=== PATIENT | male | born 1930 | race Caucasian/White ===

== ENCOUNTER 2016-08-09 15:10 | Emergency (ER) | payer MEDICARE, OTHER ==
--- NOTE | 2016-08-09 16:25 | ER Document Report ---
ED Medical Screen (RME) - General Stated Complaint: PAINFUL URINATION Time seen by provider: 16:20 Mode of Arrival: Ambulatory Information source: Patient Notes: 86-year-old male complaining of inability to have a bowel movement today. Doesn 't one sit down on the toilet to strain because then it starts a burning pain in his anus area. He had a bowel movement yesterday. He is, in the emergency room 5 or 6 times in the past and they put a Bledsoe catheter and but he does not feel like his bladder is distended and is not having any bladder pain. I have greeted and performed a rapid initial assessment of this patient. A comprehensive ED assessment, evaluation of the patient, analysis of test results , and completion of the medical decision making process will be conducted by additional ED providers. TRAVEL OUTSIDE OF THE [place] IN LAST 30 DAYS: No - Related Data Allergies/Adverse Reactions: digoxin [Digoxin] Allergy (Verified 05/15/16 19:17) felt bad procainamide HCl [From Procan SR] Allergy (Verified 05/15/16 19:17) ITCH, RASH ketamine Adverse Reaction (Verified 05/15/16 19:17) Past Medical History - Past Medical History Cardiac Medical History: Reports: Hx Congestive Heart Failure, Hx Coronary Artery Disease - 4 stents, Hx Heart Attack - 1980, Hx Hypercholesterolemia, Hx Hypertension Pulmonary Medical History: Reports: Hx Pneumonia - hx Denies: Hx Asthma, Hx Bronchitis, Hx COPD, Hx Tuberculosis Neurological Medical History: Denies: Hx Cerebrovascular Accident, Hx Seizures Endocrine Medical History: Reports: Hx Diabetes Mellitus Type 2 Renal/ Medical History: Reports: Hx Benign Prostatic Hyperplasia GI Medical History: Reports: Hx Gastroesophageal Reflux Disease Musculoskeltal Medical History: Denies Hx Arthritis Past Surgical History: Reports: Hx Cardiac Catheterization - stents x4/ pmaker, defib, Hx Coronary Stent, Hx Open Heart Surgery - STENTS X 4, Hx Pacemaker - Immunizations Hx Diphtheria, Pertussis, Tetanus Vaccination: Yes Physical Exam - Vital signs Vitals: Temp Pulse Resp BP Pulse Ox 97.4 F 59 L 18 144/47 H 100 08/09/16 15:14 08/09/16 15:14 08/09/16 15:14 08/09/16 15:14 08/09/16 15:14 Course - Vital Signs Vital signs: Temp Pulse Resp BP Pulse Ox 97.4 F 59 L 18 144/47 H 100 08/09/16 15:14 08/09/16 15:14 08/09/16 15:14 08/09/16 15:14 08/09/16 15:14
[2016-08-09 16:54] LABS: ABSOLUTE BASOPHILS # (AUTO) 0.1 10^3/uL (0.0-0.2); ABSOLUTE EOSINOPHILS # (AUTO) 0.1 10^3/uL (0.0-0.6); ABSOLUTE MONOCYTES (AUTO) 0.6 10^3/uL (0.1-1.4); ABSOLUTE NEUT (AUTO) 6.9 10^3/uL (1.7-8.2); BASOPHILS % (AUTO) 0.7 % (0-2); EOSINOPHILS % (AUTO) 1.2 % (0-6); HEMATOCRIT 30.5 % (37.9-51.0); HEMOGLOBIN 9.8 g/dL (13.5-17.0); HGB HCT DIFFERENCE -1.1; LYMPHOCYTES % (AUTO) 11.1 % (13-45); MEAN CORPUSCULAR HEMOGLOBIN 28.3 pg (27.0-33.4); MEAN CORPUSCULAR HGB CONC 32.1 g/dL (32.0-36.0); MEAN CORPUSCULAR VOLUME 88 fl (80-97); MONOCYTES % (AUTO) 7.4 % (3-13); RED BLOOD COUNT 3.46 10^6/uL (4.35-5.55); RED CELL DISTRIBUTION WIDTH 15.6 % (11.5-14.0); SEGMENTED NEUTROPHILS % (AUTO) 79.6 % (42-78); WHITE BLOOD COUNT 8.7 10^3/uL (4.0-10.5)
[2016-08-09 17:06] LABS: ALANINE AMINOTRANSFERASE 24 U/L (21-72); ALBUMIN 4.1 g/dL (3.5-5.0); ALKALINE PHOSPHATASE 107 U/L (38-126); ANION GAP 14 (5-19); ASPARTATE AMINO TRANSFERASE 25 U/L (17-59); BILIRUBIN,TOTAL 0.4 mg/dL (0.2-1.3); BLOOD UREA NITROGEN 36 mg/dL (7-20); CALCIUM 9.2 mg/dL (8.4-10.2); CARBON DIOXIDE 24 mmol/L (22-30); CHLORIDE 104 mmol/L (98-107); CREATININE RESULT 1.72 mg/dL (0.52-1.25); GLUCOSE 130 mg/dL (75-110); POTASSIUM 4.5 mmol/L (3.6-5.0); SODIUM 141.5 mmol/L (137-145); TOTAL PROTEIN 7.2 g/dL (6.3-8.2)
[2016-08-09] MEDS ORDERED: LIDOCAINE 4% TOPICAL SOLN 50 ML TOP ONE (17:56)
--- NOTE | 2016-08-09 18:46 | ER Document Report ---
ED General - General Chief Complaint: Constipation Stated Complaint: PAINFUL URINATION Mode of Arrival: Ambulatory Information source: Patient Notes: 86-year-old male presents with complaints of rectal pain with hard bowel movements. Patient denies any fevers or chills. Patient initially did complain of difficulty urinating however he notes that his pain is all constipation related TRAVEL OUTSIDE OF THE [place] IN LAST 30 DAYS: No - HPI Onset: Yesterday Onset/Duration: Sudden Quality of pain: Sharp Severity: Mild Pain Level: 1 Associated symptoms: Other Exacerbated by: Denies Relieved by: Denies Similar symptoms previously: No Recently seen / treated by doctor: No - Related Data Allergies/Adverse Reactions: digoxin [Digoxin] Allergy (Verified 05/15/16 19:17) felt bad procainamide HCl [From Procan SR] Allergy (Verified 05/15/16 19:17) ITCH, RASH ketamine Adverse Reaction (Verified 05/15/16 19:17) Past Medical History - General Information source: Patient - Social History Smoking Status: Never Smoker Cigarette use (# per day): No Chew tobacco use (# tins/day): No Smoking Education Provided: No Family History: Reviewed & Not Pertinent Patient has suicidal ideation: No Patient has homicidal ideation: No - Past Medical History Cardiac Medical History: Reports: Hx Congestive Heart Failure, Hx Coronary Artery Disease - 4 stents, Hx Heart Attack - 1980, Hx Hypercholesterolemia, Hx Hypertension Pulmonary Medical History: Reports: Hx Pneumonia - hx Denies: Hx Asthma, Hx Bronchitis, Hx COPD, Hx Tuberculosis Neurological Medical History: Denies: Hx Cerebrovascular Accident, Hx Seizures Endocrine Medical History: Reports: Hx Diabetes Mellitus Type 2 Renal/ Medical History: Reports: Hx Benign Prostatic Hyperplasia. Denies: Hx Peritoneal Dialysis GI Medical History: Reports: Hx Gastroesophageal Reflux Disease Musculoskeltal Medical History: Denies Hx Arthritis Past Surgical History: Reports: Hx Cardiac Catheterization - stents x4/ pmaker, defib, Hx Coronary Stent, Hx Open Heart Surgery - STENTS X 4, Hx Pacemaker - Immunizations Hx Diphtheria, Pertussis, Tetanus Vaccination: Yes Hx Pneumococcal Vaccination: 05/05/15 Review of Systems - Review of Systems Notes: REVIEW OF SYSTEMS: CONSTITUTIONAL : Denies fever, chills, or sweats. Denies recent illness. EENT: Denies eye, ear, throat, or mouth pain or symptoms. Denies nasal or sinus congestion or discharge. Denies throat, tongue, or mouth swelling or difficulty swallowing. CARDIOVASCULAR: Denies chest pain. Denies palpitations or racing or irregular heart beat. Denies ankle edema. RESPIRATORY: Denies cough, cold, or chest congestion. Denies shortness of breath, difficulty breathing, or wheezing. GASTROINTESTINAL: Admits to rectal pain constipation GENITOURINARY: Denies difficulty urinating, painful urination, burning, frequency, blood in urine, or discharge. MUSCULOSKELETAL: Denies back or neck pain or stiffness. Denies joint pain or swelling. SKIN: Denies rash, lesions or sores. HEMATOLOGIC : Denies easy bruising or bleeding. LYMPHATIC: Denies swollen, enlarged glands. NEUROLOGICAL: Denies confusion or altered mental status. Denies passing out or loss of consciousness. Denies dizziness or lightheadedness. Denies headache. Denies weakness or paralysis or loss of use of either side. Denies problems with gait or speech. Denies sensory loss, numbness, or tingling. Denies seizures. PSYCHIATRIC: Denies anxiety or stress. Denies depression, suicidal ideation, or homicidal ideation. ALL OTHER SYSTEMS REVIEWED AND NEGATIVE. Dictation was performed using [employer] voice recognition software PHYSICAL EXAMINATION: GENERAL: Well-appearing, well-nourished and in no acute distress. HEAD: Atraumatic, normocephalic. EYES: Pupils equal round and reactive to light, extraocular movements intact, sclera anicteric, conjunctiva are normal. ENT: Nares patent, oropharynx clear without exudates. Moist mucous membranes. NECK: Normal range of motion, supple without lymphadenopathy LUNGS: Breath sounds clear to auscultation bilaterally and equal. No wheezes rales or rhonchi. HEART: Regular rate and rhythm without murmurs ABDOMEN: Soft, nontender, nondistended abdomen. No guarding, no rebound. No masses appreciated. Musculoskeletal: Normal range of motion, no pitting or edema. No cyanosis. NEUROLOGICAL: Cranial nerves grossly intact. Normal speech, normal gait. Normal sensory, motor exams PSYCH: Normal mood, normal affect. SKIN: Anal fissure noted on rectal examination Physical Exam - Vital signs Vitals: Temp Pulse Resp BP Pulse Ox 97.4 F 59 L 18 144/47 H 100 08/09/16 15:14 08/09/16 15:14 08/09/16 15:14 08/09/16 15:14 08/09/16 15:14 Course - Re-evaluation Re-evalutation: 08/09/16 23:10 Immediately after obtaining lidocaine, patient had 2 bowel movements with no pain at all, patient is extremely happy with this notes it was hard stool. He will take Miralax at home Patient wishes to be discharged immediately and is very appreciative of care After performing a Medical Screening Examination, I estimate there is LOW risk for ACUTE APPENDICITIS, BOWEL OBSTRUCTION, ACUTE CHOLECYSTITIS, PERFORATED DIVERTICULITIS, INCARCERATED HERNIA, PANCREATITIS, or PERFORATED ULCER, thus I consider the discharge disposition reasonable. Also, there is no evidence or peritonitis, sepsis, or toxicity. The patient and I have discussed the diagnosis and risks, and we agree with discharging home with close follow-up with the understanding that symptoms and presentations can change. We also discussed returning to the Emergency Department immediately if new or worsening symptoms occur. We have discussed the symptoms which are most concerning (e.g., bloody stool, fever, changing or worsening pain, intractable vomiting - standard verbal up date) that necessitate immediate return. - Vital Signs Vital signs: Temp Pulse Resp BP Pulse Ox 97.3 F 64 20 129/49 H 100 08/09/16 18:59 08/09/16 18:59 08/09/16 18:59 08/09/16 18:59 08/09/16 18:59 - Laboratory Result Diagrams: 08/09/16 16:42 08/09/16 16:42 Laboratory results interpreted by me: 08/09/16 08/09/16 16:42 16:42 RBC 3.46 L Hgb 9.8 L Hct 30.5 L RDW 15.6 H Seg Neutrophils % 79.6 H Lymphocytes % 11.1 L BUN 36 H Creatinine 1.72 H Est GFR ( Amer) 46 L Est GFR (Non-Af Amer) 38 L Glucose 130 H Discharge - Discharge Clinical Impression: Anal fissure, Renal insufficiency Constipation Qualifiers: Constipation type: other constipation type Qualified Code(s): K59.09 - Other constipation Condition: Stable Disposition: HOME, SELF-CARE Instructions: Constipation ([facility]) Additional Instructions: Return immediately if there are any other concerns Referrals: JONO CASEY MD [Primary Care Provider] - Follow up as needed
[2016-08-09 19:02] VITALS: BP 129/49
== END 2016-08-09 18:59 | disposition home or self-care (01) ==
LOC: ER 15:10
DX: K59.00 Constipation, unspecified (principal); K60.2 Anal fissure, unspecified; N28.9 Disorder of kidney and ureter, unspecified; E11.9 Type 2 diabetes mellitus without complications; I25.10 Atherosclerotic heart disease of native coronary artery without angina pectoris; I25.2 Old myocardial infarction; I10 Essential (primary) hypertension; Z88.8 Allergy status to other drugs, medicaments and biological substances; Z98.61 Coronary angioplasty status; Z95.810 Presence of automatic (implantable) cardiac defibrillator
CPT/HCPCS: 99284; 36415; 85025; 80053; 74176; J3490

== ENCOUNTER → 2016-08-11 | Outpatient (CLI) | payer MEDICARE, OTHER ==
[2016-08-11 08:49] LABS: ABSOLUTE BASOPHILS # (AUTO) 0.1 10^3/uL (0.0-0.2); ABSOLUTE EOSINOPHILS # (AUTO) 0.1 10^3/uL (0.0-0.6); ABSOLUTE MONOCYTES (AUTO) 0.7 10^3/uL (0.1-1.4); ABSOLUTE NEUT (AUTO) 8.6 10^3/uL (1.7-8.2); BASOPHILS % (AUTO) 0.5 % (0-2); HEMATOCRIT 28.5 % (37.9-51.0); HEMOGLOBIN 9.5 g/dL (13.5-17.0); LYMPHOCYTES % (AUTO) 9.9 % (13-45); MEAN CORPUSCULAR HEMOGLOBIN 29.2 pg (27.0-33.4); MEAN CORPUSCULAR HGB CONC 33.3 g/dL (32.0-36.0); MEAN CORPUSCULAR VOLUME 88 fl (80-97); MONOCYTES % (AUTO) 6.7 % (3-13); RED BLOOD COUNT 3.26 10^6/uL (4.35-5.55); RED CELL DISTRIBUTION WIDTH 15.3 % (11.5-14.0); SEGMENTED NEUTROPHILS % (AUTO) 81.9 % (42-78); WHITE BLOOD COUNT 10.4 10^3/uL (4.0-10.5)
[2016-08-11 09:04] LABS: ALANINE AMINOTRANSFERASE 30 U/L (21-72); ALBUMIN 3.9 g/dL (3.5-5.0); ALKALINE PHOSPHATASE 109 U/L (38-126); ANION GAP 13 (5-19); ASPARTATE AMINO TRANSFERASE 25 U/L (17-59); BILIRUBIN,TOTAL 0.6 mg/dL (0.2-1.3); BLOOD UREA NITROGEN 40 mg/dL (7-20); CALCIUM 9.5 mg/dL (8.4-10.2); CARBON DIOXIDE 26 mmol/L (22-30); CHLORIDE 105 mmol/L (98-107); CHOLESTEROL 125.86 mg/dL (0-200); CREATININE RESULT 1.83 mg/dL (0.52-1.25); Direct HDL 65 mg/dL (>40); GLUCOSE 151 mg/dL (75-110); POTASSIUM 4.8 mmol/L (3.6-5.0); SODIUM 143.5 mmol/L (137-145); TOTAL PROTEIN 6.9 g/dL (6.3-8.2); TRIGLYCERIDES 107 mg/dL (<150)
[2016-08-11 09:16] LABS: DIRECT LDL 32 mg/dL (<100)
== END ==
LOC: OD 07:04
PROVIDERS: ATTEND Family Medicine
DX: E11.9 Type 2 diabetes mellitus without complications (principal); E78.5 Hyperlipidemia, unspecified; D50.9 Iron deficiency anemia, unspecified; Z79.02 Long term (current) use of antithrombotics/antiplatelets; Z79.899 Other long term (current) drug therapy
CPT/HCPCS: 36415; 80048; 80061; 80076; 82728; 83036; 83540; 83550; 85025

== ENCOUNTER → 2016-08-29 | Outpatient (CLI) | payer MEDICARE, OTHER | LOC: OD 15:29 | PROVIDERS: ATTEND Family Medicine | DX: M25.551 Pain in right hip (principal); M16.11 Unilateral primary osteoarthritis, right hip ==

== ENCOUNTER → 2016-09-14 | Outpatient (CLI) | payer MEDICARE, OTHER ==
[2016-09-14 08:30] LABS: ABSOLUTE BASOPHILS # (AUTO) 0.1 10^3/uL (0.0-0.2); ABSOLUTE EOSINOPHILS # (AUTO) 0.1 10^3/uL (0.0-0.6); ABSOLUTE MONOCYTES (AUTO) 0.6 10^3/uL (0.1-1.4); ABSOLUTE NEUT (AUTO) 6.4 10^3/uL (1.7-8.2); BASOPHILS % (AUTO) 0.9 % (0-2); EOSINOPHILS % (AUTO) 1.4 % (0-6); HEMATOCRIT 25.7 % (37.9-51.0); HEMOGLOBIN 8.5 g/dL (13.5-17.0); HGB HCT DIFFERENCE -0.2; LYMPHOCYTES % (AUTO) 11.7 % (13-45); MEAN CORPUSCULAR HEMOGLOBIN 29.4 pg (27.0-33.4); MEAN CORPUSCULAR HGB CONC 32.9 g/dL (32.0-36.0); MEAN CORPUSCULAR VOLUME 89 fl (80-97); MONOCYTES % (AUTO) 7.7 % (3-13); RED BLOOD COUNT 2.88 10^6/uL (4.35-5.55); SEGMENTED NEUTROPHILS % (AUTO) 78.3 % (42-78); WHITE BLOOD COUNT 8.2 10^3/uL (4.0-10.5)
[2016-09-14 08:58] LABS: ANION GAP 15 (5-19); BLOOD UREA NITROGEN 45 mg/dL (7-20); CALCIUM 8.9 mg/dL (8.4-10.2); CARBON DIOXIDE 22 mmol/L (22-30); CHLORIDE 106 mmol/L (98-107); CREATININE RESULT 2.02 mg/dL (0.52-1.25); GLUCOSE 208 mg/dL (75-110); POTASSIUM 5.2 mmol/L (3.6-5.0); SODIUM 142.5 mmol/L (137-145)
== END ==
LOC: OD 07:51
PROVIDERS: ATTEND Family Medicine
DX: D50.9 Iron deficiency anemia, unspecified (principal); G31.84 Mild cognitive impairment of uncertain or unknown etiology; N18.4 Chronic kidney disease, stage 4 (severe)
CPT/HCPCS: 36415; 80048; 82607; 82668; 85025

== ENCOUNTER 2016-09-15 13:39 | Inpatient (IN) | payer MEDICARE, OTHER ==
[2016-09-15 14:48] LABS: HEMATOCRIT 25.4 % (37.9-51.0); HEMOGLOBIN 8.3 g/dL (13.5-17.0); HGB HCT DIFFERENCE -0.5; MEAN CORPUSCULAR HGB CONC 32.8 g/dL (32.0-36.0); MEAN CORPUSCULAR VOLUME 89 fl (80-97); RED BLOOD COUNT 2.87 10^6/uL (4.35-5.55); RED CELL DISTRIBUTION WIDTH 19.4 % (11.5-14.0); WHITE BLOOD COUNT 8.6 10^3/uL (4.0-10.5)
[2016-09-15 15:36] LABS: ALANINE AMINOTRANSFERASE 32 U/L (21-72); ALBUMIN 3.8 g/dL (3.5-5.0); ALKALINE PHOSPHATASE 99 U/L (38-126); ANION GAP 15 (5-19); ASPARTATE AMINO TRANSFERASE 25 U/L (17-59); BILIRUBIN,DIRECT 0.2 mg/dL (0.0-0.4); BILIRUBIN,TOTAL 0.6 mg/dL (0.2-1.3); BLOOD UREA NITROGEN 44 mg/dL (7-20); CALCIUM 9.2 mg/dL (8.4-10.2); CARBON DIOXIDE 19 mmol/L (22-30); CHLORIDE 105 mmol/L (98-107); CREATININE RESULT 2.01 mg/dL (0.52-1.25); GLUCOSE 135 mg/dL (75-110); POTASSIUM 4.9 mmol/L (3.6-5.0); SODIUM 138.5 mmol/L (137-145); TOTAL PROTEIN 6.4 g/dL (6.3-8.2)
[2016-09-15] MEDS: PANTOPRAZOLE SODIUM 40 MG VIAL IV SCH (17:35)
--- NOTE | 2016-09-15 18:32 | PDOC H&P ---
History of Present Illness Admission Date/PCP: 09/15/16 13:39 JONO CASEY MD Patient complains of: Abnormal labs History of Present Illness: STORM HERNDON is a 86 year old male With a known history of coronary artery disease status post CABG, chronic atrial fibrillation, CHF, hypertension, diabetes mellitus type II, status post pacemaker and AICD, CK D stage IV Was direct admit from his doctor's office because of abnormal labs Hemoglobin was 8.5 Upon questioning patient is describing tarry stools for the past 2 weeks; abdominal pain ;tenesmus and sensation of fullness in the rectum Past Medical History Cardiac Medical History: Reports: Congestive Heart Failure, Coronary Artery Disease - 4 stents, Myocardial Infarction - 1980, Hyperlipidema, Hypertension Pulmonary Medical History: Reports: Pneumonia - hx Denies: Asthma, Bronchitis, Chronic Obstructive Pulmonary Disease (COPD), Tuberculosis Neurological Medical History: Denies: Seizures Endocrine Medical History: Reports: Diabetes Mellitus Type 2 GI Medical History: Reports: Gastroesophageal Reflux Disease Denies: Hepatitis, Hiatal Hernia Musculoskeltal Medical History: Denies: Arthritis Psychiatric Medical History: Denies: Depression Hematology: Denies: Anemia, Sickle Cell Disease Past Surgical History Past Surgical History: Reports: Cardiac Catheterization - stents x4/ pmaker, defib, Coronary Stent, Pacemaker Social History Information Source: Patient Smoking Status: Former Smoker Number of Years Smokin Frequency of Alcohol Use: None Hx Recreational Drug Use: No Drugs: None Hx Prescription Drug Abuse: No - Advance Directive Resuscitation Status: Full Code Surrogate healthcare decision maker:: Family History Family History: Reviewed & Not Pertinent Parental Family History Reviewed: Yes Children Family History Reviewed: Yes Sibling(s) Family History Reviewed.: Yes Medication/Allergy Home Medications: Allopurinol [Zyloprim 100 mg Tablet] 100 mg PO QPM 09/15/16 Amiodarone HCl [Cordarone 200 mg Tablet] 200 mg PO QHS 09/15/16 Aspirin [Aspirin EC] 81 mg PO DAILY 09/15/16 Atorvastatin Calcium [Lipitor 10 mg Tablet] 10 g PO QHS 09/15/16 Carvedilol [Coreg 12.5 mg Tablet] 12.5 mg PO BID 09/15/16 Clopidogrel Bisulfate [Plavix 75 mg Tablet] 75 mg PO QHS 09/15/16 Docusate Sodium [Colace 100 mg Capsule] 100 mg PO BID 09/15/16 Ferrous Sulfate [Feosol 325 mg Tablet] 325 mg PO DAILY 09/15/16 Finasteride [Proscar 5 mg Tablet] 5 mg PO DAILY 09/15/16 Furosemide [Lasix] 20 mg PO QPM 09/15/16 Furosemide [Lasix] 40 mg PO QAM 09/15/16 Linaclotide [Linzess] 290 mcg PO DAILY 09/15/16 Losartan Potassium [Cozaar 25 mg Tablet] 25 mg PO BID 09/15/16 Pantoprazole Sodium [Protonix] 40 mg PO QAM 09/15/16 Tamsulosin HCl [Flomax 0.4 mg Cap.sr] 0.4 mg PO QPM 09/15/16 Allergies/Adverse Reactions: digoxin [Digoxin] Allergy (Verified 05/15/16 19:17) felt bad procainamide HCl [From Procan SR] Allergy (Verified 05/15/16 19:17) ITCH, RASH ketamine Adverse Reaction (Verified 05/15/16 19:17) Review of Systems Constitutional: PRESENT: fatigue, weakness Eyes: ABSENT: visual disturbances Cardiovascular: ABSENT: chest pain, dyspnea on exertion, edema, orthropnea, palpitations Respiratory: ABSENT: cough, hemoptysis Gastrointestinal: PRESENT: abdominal pain, other - Constipation tarry stools Feeling of fullness in the rectum Tenesmus Genitourinary: ABSENT: dysuria, hematuria Musculoskeletal: ABSENT: joint swelling Integumentary: ABSENT: rash, wounds Neurological: ABSENT: abnormal gait, abnormal speech, confusion, dizziness, focal weakness, syncope Endocrine: PRESENT: as per HPI Hematologic/Lymphatic: ABSENT: easy bleeding, easy bruising Physical Exam Vital Signs: Temp Pulse Resp BP Pulse Ox 98.2 F 67 16 140/49 H 98 09/15/16 15:40 09/15/16 16:02 09/15/16 15:40 09/15/16 15:40 09/15/16 16:37 Intake & Output 09/14/16 09/15/16 09/16/16 00:59 00:59 00:59 Weight 64.6 kg General appearance: PRESENT: no acute distress, other - Very anxious looks chronically ill Head exam: PRESENT: atraumatic, normocephalic Eye exam: PRESENT: conjunctiva pink, EOMI, PERRLA. ABSENT: scleral icterus Ear exam: PRESENT: normal external ear exam Neck exam: PRESENT: full ROM. ABSENT: carotid bruit, JVD, lymphadenopathy, meningismus, tenderness, thyromegaly, tracheal deviation, tracheostomy Respiratory exam: PRESENT: clear to auscultation sheila. ABSENT: rales, rhonchi, wheezes Cardiovascular exam: PRESENT: RRR. ABSENT: diastolic murmur, rubs, systolic murmur Pulses: PRESENT: normal dorsalis pedis pul GI/Abdominal exam: PRESENT: normal bowel sounds, soft. ABSENT: distended, guarding, mass, organolmegaly, rebound, tenderness Rectal exam: PRESENT: black stool. ABSENT: fecal impaction, hemorrhoids, laceration, prostate enlargement, prostate tenderness Extremities exam: PRESENT: full ROM, +1 edema. ABSENT: calf tenderness, clubbing Neurological exam: PRESENT: alert, awake, oriented to person, oriented to place , oriented to time, oriented to situation, CN II-XII grossly intact. ABSENT: motor sensory deficit Skin exam: PRESENT: dry, intact, warm. ABSENT: cyanosis, rash Results Laboratory Results: 09/15/16 14:37 09/15/16 14:37 09/15/16 09/15/16 09/15/16 14:37 14:37 14:37 WBC 8.6 RBC 2.87 L Hgb 8.3 L Hct 25.4 L MCV 89 MCH 29.0 MCHC 32.8 RDW 19.4 H Plt Count 188 Sodium 138.5 Potassium 4.9 Chloride 105 Carbon Dioxide 19 L Anion Gap 15 BUN 44 H Creatinine 2.01 H Est GFR ( Amer) 38 L Est GFR (Non-Af Amer) 32 L Glucose 135 H Calcium 9.2 Total Bilirubin 0.6 AST 25 ALT 32 Alkaline Phosphatase 99 Total Protein 6.4 Albumin 3.8 Blood Type A POSITIVE Antibody Screen NEGATIVE 09/15/16 14:37 NT-Pro-B Natriuret Pep 01832 H Assessment & Plan - Diagnosis (1) Systolic CHF, chronic Is this a current diagnosis for this admission?: YesPlan: Well compensated status post pacer defibrillator Continue his present management (2) Anemia Qualifiers: Other causes of anemia: other cause, not classified Is this a current diagnosis for this admission?: YesPlan: This is likely an acute on chronic anemia we will a ordered the anemia workup Patient had a hemoglobin of 8.5 it is questionable whether he should be transfused at this time We will repeat CBC in a.m. 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 and albumin creatinine ratio >30 mg/g Is this a current diagnosis for this admission?: YesPlan: Unchanged (6) RLS (restless legs syndrome) Is this a current diagnosis for this admission?: YesPlan: Initiate Requip - Time Time Spent: 50 to 70 Minutes - Inpatient Certification Based on my medical assessment, after consideration of the patient's comorbidities, presenting symptoms, or acuity I expect that the services needed warrant INPATIENT care.: No I certify that my determination is in accordance with my understanding of Medicare's requirements for reasonable and necessary INPATIENT services [42 CFR 412.3e].: No
[2016-09-15] MEDS: GABAPENTIN 100 MG CAPSULE PO SCH (21:56)
[2016-09-15] MEDS: ROPINIROLE HCL 1 MG TABLET PO SCH (21:56)
[2016-09-15] MEDS ORDERED: ROPINIROLE HCL 1 MG TABLET PO SCH (22:00)
[2016-09-16 05:23] LABS: ABSOLUTE LYMPHOCYTES (AUTO) 0.7 10^3/uL (0.5-4.7); ABSOLUTE NEUT (AUTO) 8.2 10^3/uL (1.7-8.2); BASOPHILS % (AUTO) 0.3 % (0-2); EOSINOPHILS % (AUTO) 0.1 % (0-6); HEMATOCRIT 24.1 % (37.9-51.0); HGB HCT DIFFERENCE -0.1; MEAN CORPUSCULAR HEMOGLOBIN 29.4 pg (27.0-33.4); MEAN CORPUSCULAR HGB CONC 33.2 g/dL (32.0-36.0); MEAN CORPUSCULAR VOLUME 89 fl (80-97); MONOCYTES % (AUTO) 10.1 % (3-13); RED BLOOD COUNT 2.72 10^6/uL (4.35-5.55); RED CELL DISTRIBUTION WIDTH 19.5 % (11.5-14.0); SEGMENTED NEUTROPHILS % (AUTO) 82.5 % (42-78)
[2016-09-16] MEDS: PANTOPRAZOLE SODIUM 40 MG VIAL IV SCH ×2 (07:08→17:42)
[2016-09-16] MEDS ORDERED: FERUMOXYTOL 510 MG in NORMAL SALINE 100 ML IV ONE (08:58)
[2016-09-16] MEDS ORDERED: EPOETIN ALFA INJ 20000 UNIT/1 ML VIAL (RENAL) SUBCUT ONE (08:59)
[2016-09-16] MEDS ORDERED: FUROSEMIDE INJ/PF 20 MG/2 ML SDV IV PRN (09:00)
[2016-09-16] MEDS ORDERED: NORMAL SALINE 250 ML IV PRN ×2 (09:00)
--- NOTE | 2016-09-16 09:40 | PDOC PROGRESS REPORT ---
Subjective Progress Note for:: 09/16/16 Subjective:: Patient has no complaints this morning he still somewhat lethargic and is sleeping somehow when evaluated Stools for occult blood were positive yesterday and his hemoglobin is 8 he will be transfused 2 units of packed red cells He has no shortness of breath and no chest pain Chest x-ray performed yesterday showed some fluid overload and small pleural effusions Physical Exam Vital Signs: Temp Pulse Resp BP Pulse Ox 98.2 F 59 L 20 131/40 H 92 09/16/16 07:48 09/16/16 07:48 09/16/16 07:48 09/16/16 07:48 09/16/16 07:48 Intake & Output 09/15/16 09/16/16 09/17/16 00:59 00:59 00:59 Intake Total 160 45 Balance 160 45 Weight 64.6 kg 65 kg General appearance: PRESENT: no acute distress, thin, other - Chronically ill- looking Head exam: PRESENT: atraumatic, normocephalic Eye exam: PRESENT: conjunctiva pale, EOMI, PERRLA. ABSENT: scleral icterus Neck exam: ABSENT: carotid bruit, JVD, lymphadenopathy, thyromegaly Respiratory exam: PRESENT: clear to auscultation sheila. ABSENT: rales, rhonchi, wheezes GI/Abdominal exam: PRESENT: normal bowel sounds, soft. ABSENT: distended, guarding, mass, organolmegaly, rebound, tenderness Neurological exam: PRESENT: alert, awake, CN II-XII grossly intact. ABSENT: motor sensory deficit Results Laboratory Results: 09/16/16 04:49 09/15/16 14:37 09/15/16 09/15/16 09/15/16 14:37 14:37 14:37 WBC 8.6 RBC 2.87 L Hgb 8.3 L Hct 25.4 L MCV 89 MCH 29.0 MCHC 32.8 RDW 19.4 H Plt Count 188 Seg Neutrophils % Lymphocytes % Monocytes % Eosinophils % Basophils % Absolute Neutrophils Absolute Lymphocytes Absolute Monocytes Absolute Eosinophils Absolute Basophils Sodium 138.5 Potassium 4.9 Chloride 105 Carbon Dioxide 19 L Anion Gap 15 BUN 44 H Creatinine 2.01 H Est GFR ( Amer) 38 L Est GFR (Non-Af Amer) 32 L Glucose 135 H Calcium 9.2 Iron TIBC % Saturation Ferritin Total Bilirubin 0.6 AST 25 ALT 32 Alkaline Phosphatase 99 Total Protein 6.4 Albumin 3.8 Vitamin B12 Folate TSH Stool Occult Blood Blood Type A POSITIVE Antibody Screen NEGATIVE 09/15/16 09/15/16 09/16/16 14:37 18:00 04:49 WBC 10.0 RBC 2.72 L Hgb 8.0 L Hct 24.1 L MCV 89 MCH 29.4 MCHC 33.2 RDW 19.5 H Plt Count 166 Seg Neutrophils % 82.5 H Lymphocytes % 7.0 L Monocytes % 10.1 Eosinophils % 0.1 Basophils % 0.3 Absolute Neutrophils 8.2 Absolute Lymphocytes 0.7 Absolute Monocytes 1.0 Absolute Eosinophils 0.0 Absolute Basophils 0.0 Sodium Potassium Chloride Carbon Dioxide Anion Gap BUN Creatinine Est GFR ( Amer) Est GFR (Non-Af Amer) Glucose Calcium Iron 14.8 L TIBC 354 % Saturation 4 Ferritin 23.10 Total Bilirubin AST ALT Alkaline Phosphatase Total Protein Albumin Vitamin B12 534.0 Folate 13.60 TSH Stool Occult Blood POSITIVE Blood Type Antibody Screen 09/16/16 04:49 WBC RBC Hgb Hct MCV MCH MCHC RDW Plt Count Seg Neutrophils % Lymphocytes % Monocytes % Eosinophils % Basophils % Absolute Neutrophils Absolute Lymphocytes Absolute Monocytes Absolute Eosinophils Absolute Basophils Sodium Potassium Chloride Carbon Dioxide Anion Gap BUN Creatinine Est GFR ( Amer) Est GFR (Non-Af Amer) Glucose Calcium Iron TIBC % Saturation Ferritin Total Bilirubin AST ALT Alkaline Phosphatase Total Protein Albumin Vitamin B12 Folate TSH 1.53 Stool Occult Blood Blood Type Antibody Screen 09/15/16 14:37 NT-Pro-B Natriuret Pep 10186 H Impressions: Chest X-Ray 09/15/16 00:00 IMPRESSION: Mild vascular congestion. Abdomen/Pelvis CT 09/15/16 15:57 IMPRESSION: Moderate right pleural effusion. Small left pleural effusion. Increased over previous. No acute intra-abdominal process. 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 Patient will be initiated in the future of Procrit injections A the right now needs to be transfused 2 units of packed red cells and we will hold Procrit (3) Rectal pain, chronic Is this a current diagnosis for this admission?: YesPlan: Patient did not have any mass palpable on a rectal exam CT abdomen and pelvis was unremarkable But he does have rectal pain We will treat him as a presumptive proctitis with Vantin and Flagyl( Cipro is contraindicated to use with amiodarone) Patient should have colonoscopy at some point when clinically stable (4) Neuropathy Is this a current diagnosis for this admission?: YesPlan: Secondary to diabetes continue gabapentin (5) CKD stage G3b/A1, 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 and albumin creatinine ratio >30 mg/g Is this a current diagnosis for this admission?: YesPlan: Stable (6) RLS (restless legs syndrome) Is this a current diagnosis for this admission?: Yes (7) Upper GI bleed Is this a current diagnosis for this admission?: YesPlan: Likely to be secondary to acute gastritis or peptic ulcer disease Noted that patient is on Plavix We will hold Plavix at this time continue Ecotrin 81 mg daily Patient may be a candidate for endoscopy when stable Continue Protonix - Time Time Spent with patient: Patient was upgraded to inpatient Time Spent with patient: 25-34 minutes - Inpatient Certification Based on my medical assessment, after consideration of the patient's comorbidities, presenting symptoms, or acuity I expect that the services needed warrant INPATIENT care.: Yes I certify that my determination is in accordance with my understanding of Medicare's requirements for reasonable and necessary INPATIENT services [42 CFR 412.3e].: Yes Medical Necessity: Need Close Monitoring Due to Risk of Patient Decompensation, Need For Continuous Telemetry Monitoring, Other - Need for transfusion
[2016-09-16] MEDS ORDERED: CEFPODOXIME 200 MG TABLET PO ONE (11:00)
[2016-09-16] MEDS: CARVEDILOL 12.5 MG TABLET PO SCH ×2 (11:18→22:14)
[2016-09-16] MEDS: FUROSEMIDE INJ/PF 20 MG/2 ML SDV IV SCH ×2 (11:20→22:11)
[2016-09-16] MEDS: METRONIDAZOLE 500 MG TABLET PO SCH ×2 (11:20→17:42)
[2016-09-16] MEDS: LOSARTAN POTASSIUM 25 MG TABLET PO SCH ×2 (11:22→17:42)
[2016-09-16] MEDS: VENLAFAXINE HCL 37.5 MG CAP.SR.24H PO SCH (11:23)
[2016-09-16] MEDS: DOCUSATE SODIUM 100 MG CAPSULE PO SCH ×2 (11:24→17:48)
[2016-09-16] MEDS: ASPIRIN 81 MG TABLET, ENT COATED PO SCH (11:24)
[2016-09-16] MEDS ORDERED: TAMSULOSIN HCL 0.4 MG CAP.SR.24H PO SCH (18:00)
[2016-09-16] MEDS ORDERED: ALLOPURINOL 100 MG TABLET PO SCH (18:00)
[2016-09-16] MEDS ORDERED: ATORVASTATIN CALCIUM 10 MG TABLET PO SCH (22:00)
[2016-09-16] MEDS ORDERED: AMIODARONE HCL 200 MG TABLET PO SCH (22:00)
[2016-09-16] MEDS: ROPINIROLE HCL 1 MG TABLET PO SCH (22:13)
[2016-09-16] MEDS: GABAPENTIN 100 MG CAPSULE PO SCH (22:14)
[2016-09-17 02:26] LABS: HEMATOCRIT 33.4 % (37.9-51.0); HGB HCT DIFFERENCE 0.2; MEAN CORPUSCULAR HEMOGLOBIN 29.2 pg (27.0-33.4); MEAN CORPUSCULAR HGB CONC 33.5 g/dL (32.0-36.0); MEAN CORPUSCULAR VOLUME 87 fl (80-97); RED BLOOD COUNT 3.83 10^6/uL (4.35-5.55); RED CELL DISTRIBUTION WIDTH 17.6 % (11.5-14.0); WHITE BLOOD COUNT 11.9 10^3/uL (4.0-10.5)
[2016-09-17 02:31] LABS: HEMOGLOBIN 11.2 g/dL (13.5-17.0)
[2016-09-17 02:35] LABS: BAND NEUTROPHILS % (MANUAL) 2 % (3-5); BASOPHILS % (MANUAL) 1 % (0-2); EOSINOPHILS % (MANUAL) 0 % (0-6); LYMPHOCYTES % (MANUAL) 5 % (13-45); TOTAL CELLS COUNTED 100
[2016-09-17 02:38] LABS: ANISOCYTOSIS 1+; OVALOCYTES 1+; POIKILOCYTOSIS SLIGHT
[2016-09-17] MEDS: METRONIDAZOLE 500 MG TABLET PO SCH ×2 (03:27→10:29)
[2016-09-17] MEDS: PANTOPRAZOLE SODIUM 40 MG VIAL IV SCH (05:38)
[2016-09-17 06:47] LABS: HEMATOCRIT 32.3 % (37.9-51.0); HEMOGLOBIN 10.8 g/dL (13.5-17.0); HGB HCT DIFFERENCE 0.1; MEAN CORPUSCULAR HEMOGLOBIN 29.1 pg (27.0-33.4); MEAN CORPUSCULAR HGB CONC 33.6 g/dL (32.0-36.0); MEAN CORPUSCULAR VOLUME 87 fl (80-97); RED BLOOD COUNT 3.73 10^6/uL (4.35-5.55); RED CELL DISTRIBUTION WIDTH 17.6 % (11.5-14.0); WHITE BLOOD COUNT 12.2 10^3/uL (4.0-10.5)
[2016-09-17 07:00] LABS: ANION GAP 15 (5-19); BLOOD UREA NITROGEN 46 mg/dL (7-20); CALCIUM 8.8 mg/dL (8.4-10.2); CARBON DIOXIDE 23 mmol/L (22-30); CHLORIDE 102 mmol/L (98-107); GLUCOSE 144 mg/dL (75-110); POTASSIUM 4.2 mmol/L (3.6-5.0); SODIUM 139.6 mmol/L (137-145)
[2016-09-17] MEDS ORDERED: CEFPODOXIME 200 MG TABLET PO SCH (10:00)
[2016-09-17] MEDS: VENLAFAXINE HCL 37.5 MG CAP.SR.24H PO SCH (10:30)
[2016-09-17] MEDS: LOSARTAN POTASSIUM 25 MG TABLET PO SCH (10:30)
[2016-09-17] MEDS: CARVEDILOL 12.5 MG TABLET PO SCH (10:30)
[2016-09-17] MEDS: ASPIRIN 81 MG TABLET, ENT COATED PO SCH (10:30)
[2016-09-17] MEDS: DOCUSATE SODIUM 100 MG CAPSULE PO SCH (10:30)
[2016-09-17] MEDS: FUROSEMIDE INJ/PF 20 MG/2 ML SDV IV SCH (10:31)
[2016-09-17 12:39] VITALS: BP 145/68
[2016-09-17] MEDS ORDERED: FERUMOXYTOL 510 MG in NORMAL SALINE 100 ML IV ONE (13:00)
--- NOTE | 2016-09-17 13:19 | PDOC DISCHARGE SUMMARY ---
General - Admit/Disc Date/PCP Admission Date/Primary Care Provider: 09/16/16 09:32 JONO CASEY MD Discharge Date: 09/17/16 - Discharge Diagnosis (1) Systolic CHF, chronic Is this a current diagnosis for this admission?: YesSummary: Well compensated during his admission Patient was continued on his prior regimen (2) Anemia Is this a current diagnosis for this admission?: YesSummary: Iron deficiency anemia and anemia of chronic disease Patient's iron was extremely low 09/15/16 09/16/16 09/17/16 14:37 04:49 06:23 Hgb 8.0 L 10.8 L Hct 24.1 L 32.3 L Iron 14.8 L Ferritin 23.10 Vitamin B12 534.0 Folate 13.60 Patient was transfused 2 units of packed red cells; and was given 510 mg IV Feraheme Should have CBC drawn in 1-2 weeks (3) Rectal pain, chronic Is this a current diagnosis for this admission?: YesSummary: Chronic rectal pain with tenesmus Rectal exam was negative for impaction and or masses Guaiac was positive A CT abdomen and pelvis was unremarkable We treated the patient for acute proctitis with Vantin and Flagyl Colonoscopy is advised if symptoms persist (4) Neuropathy Is this a current diagnosis for this admission?: YesSummary: Initiated gabapentin (5) CKD stage G3b/A1, 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 and albumin creatinine ratio >30 mg/g Is this a current diagnosis for this admission?: YesSummary: Renal function is back to to baseline with a creatinine of 1.7 (6) RLS (restless legs syndrome) Is this a current diagnosis for this admission?: YesSummary: Initiated Requip with relief (7) Upper GI bleed Is this a current diagnosis for this admission?: YesSummary: Tarry stools with positive guaiac Patient is chronically on aspirin and Plavix for peripheral vascular disease We advised to discontinue aspirin and continue Plavix If H&H continues to drop endoscopy is indicated Continue Protonix 40 mg by mouth daily - Additional Information Resuscitation Status: Full Code Discharge Diet: As Tolerated Discharge Activity: Activity As Tolerated Home Medications: Allopurinol [Zyloprim 100 mg Tablet] 100 mg PO QPM 09/15/16 Amiodarone HCl [Cordarone 200 mg Tablet] 200 mg PO QHS 09/15/16 Atorvastatin Calcium [Lipitor 10 mg Tablet] 10 g PO QHS 09/15/16 Carvedilol [Coreg 12.5 mg Tablet] 12.5 mg PO BID 09/15/16 Clopidogrel Bisulfate [Plavix 75 mg Tablet] 75 mg PO QHS 09/15/16 Docusate Sodium [Colace 100 mg Capsule] 100 mg PO BID 09/15/16 Finasteride [Proscar 5 mg Tablet] 5 mg PO DAILY 09/15/16 Furosemide [Lasix] 40 mg PO QAM 09/15/16 Linaclotide [Linzess] 290 mcg PO DAILY 09/15/16 Losartan Potassium [Cozaar 25 mg Tablet] 25 mg PO BID 09/15/16 Pantoprazole Sodium [Protonix] 40 mg PO QAM 09/15/16 Tamsulosin HCl [Flomax 0.4 mg Cap.sr] 0.4 mg PO QPM 09/15/16 Cefpodoxime Proxetil [Vantin 200 mg Tablet] 1 tab PO DAILY #7 tab 09/17/16 Gabapentin [Neurontin 100 mg Capsule] 100 mg PO QHS #30 capsule 09/17/16 Metronidazole [Flagyl 500 mg Tablet] 500 mg PO TID #21 tablet 09/17/16 Ropinirole HCl [Requip] 0.5 mg PO QHS #30 tablet 09/17/16 History of Present Illness Patient complains of: Abnormal labs low hemoglobin History of Present Illness: STORM HERNDON is a 86 year old male With a known history of coronary artery disease status post CABG, chronic atrial fibrillation, CHF, hypertension, diabetes mellitus type II, status post pacemaker and AICD, CK D stage IV Was direct admit from his doctor's office because of abnormal labs Hemoglobin was 8.5 Upon questioning patient is describing tarry stools for the past 2 weeks; abdominal pain ;tenesmus and sensation of fullness in the rectum Hospital Course Hospital Course: See above Patient had 2 units of red cells transfused His H&H was stable after transfusion and at discharge he is very much improved Physical Exam Vital Signs: Temp Pulse Resp BP Pulse Ox 98.0 F 80 19 145/68 H 98 09/17/16 12:22 09/17/16 12:22 09/17/16 12:22 09/17/16 12:22 09/17/16 12:22 Intake & Output 09/16/16 09/17/16 09/18/16 00:59 00:59 00:59 Intake Total 160 1112 67 Balance 160 1112 67 Weight 64.6 kg 65 kg 63.9 kg General appearance: PRESENT: thin, other - Looks chronically ill pale Head exam: PRESENT: atraumatic, normocephalic Eye exam: PRESENT: conjunctiva pink, EOMI, PERRLA. ABSENT: scleral icterus Mouth exam: PRESENT: moist, tongue midline Neck exam: ABSENT: carotid bruit, JVD, lymphadenopathy, thyromegaly Respiratory exam: PRESENT: clear to auscultation sheila. ABSENT: rales, rhonchi, wheezes Cardiovascular exam: PRESENT: RRR. ABSENT: diastolic murmur, rubs, systolic murmur GI/Abdominal exam: PRESENT: normal bowel sounds, soft. ABSENT: distended, guarding, mass, organolmegaly, rebound, tenderness Extremities exam: PRESENT: full ROM. ABSENT: calf tenderness, clubbing, pedal edema Neurological exam: PRESENT: alert, awake, CN II-XII grossly intact. ABSENT: motor sensory deficit Results Laboratory Results: 09/17/16 06:23 09/17/16 06:23 09/15/16 09/17/16 09/17/16 14:37 02:06 06:23 WBC 11.9 H 12.2 H RBC 3.83 L 3.73 L Hgb 11.2 L D 10.8 L Hct 33.4 L 32.3 L MCV 87 87 MCH 29.2 29.1 MCHC 33.5 33.6 RDW 17.6 H 17.6 H Plt Count 161 155 Seg Neutrophils % Not Reportable Lymphocytes % Not Reportable Monocytes % Not Reportable Eosinophils % Not Reportable Basophils % Not Reportable Absolute Neutrophils Not Reportable Absolute Lymphocytes Not Reportable Absolute Monocytes Not Reportable Absolute Eosinophils Not Reportable Absolute Basophils Not Reportable Sodium Potassium Chloride Carbon Dioxide Anion Gap BUN Creatinine Est GFR ( Amer) Est GFR (Non-Af Amer) Glucose Calcium Blood Type A POSITIVE Antibody Screen NEGATIVE 09/17/16 06:23 WBC RBC Hgb Hct MCV MCH MCHC RDW Plt Count Seg Neutrophils % Lymphocytes % Monocytes % Eosinophils % Basophils % Absolute Neutrophils Absolute Lymphocytes Absolute Monocytes Absolute Eosinophils Absolute Basophils Sodium 139.6 Potassium 4.2 Chloride 102 Carbon Dioxide 23 Anion Gap 15 BUN 46 H Creatinine 1.70 H Est GFR ( Amer) 46 L Est GFR (Non-Af Amer) 38 L Glucose 144 H Calcium 8.8 Blood Type Antibody Screen 09/15/16 14:37 NT-Pro-B Natriuret Pep 68003 H 09/17/16 06:23 09/17/16 06:23 Blood Type A POSITIVE 09/15/16 14:37 Antibody Screen NEGATIVE 09/15/16 14:37 MCV 87 fl (80-97) 09/17/16 06:23 MCH 29.1 pg (27.0-33.4) 09/17/16 06:23 MCHC 33.6 g/dL (32.0-36.0) 09/17/16 06:23 RDW 17.6 % (11.5-14.0) H 09/17/16 06:23 Seg Neutrophils % Not Reportable 09/17/16 02:06 Lymphocytes % Not Reportable 09/17/16 02:06 Monocytes % Not Reportable 09/17/16 02:06 Eosinophils % Not Reportable 09/17/16 02:06 Basophils % Not Reportable 09/17/16 02:06 Absolute Neutrophils Not Reportable 09/17/16 02:06 Absolute Lymphocytes Not Reportable 09/17/16 02:06 Absolute Monocytes Not Reportable 09/17/16 02:06 Absolute Eosinophils Not Reportable 09/17/16 02:06 Absolute Basophils Not Reportable 09/17/16 02:06 Chloride 102 mmol/L (98-107) 09/17/16 06:23 Carbon Dioxide 23 mmol/L (22-30) 09/17/16 06:23 Anion Gap 15 (5-19) 09/17/16 06:23 Est GFR ( Amer) 46 (>60) L 09/17/16 06:23 Est GFR (Non-Af Amer) 38 (>60) L 09/17/16 06:23 Glucose 144 mg/dL (75-110) H 09/17/16 06:23 Calcium 8.8 mg/dL (8.4-10.2) 09/17/16 06:23 Iron 14.8 ug/dL (49-181) L 09/15/16 14:37 TIBC 354 ug/dL (250-450) 09/15/16 14:37 % Saturation 4 % 09/15/16 14:37 Ferritin 23.10 ng/mL (17.9-464.0) 09/15/16 14:37 Total Bilirubin 0.6 mg/dL (0.2-1.3) 09/15/16 14:37 AST 25 U/L (17-59) 09/15/16 14:37 ALT 32 U/L (21-72) 09/15/16 14:37 Alkaline Phosphatase 99 U/L (38-126) 09/15/16 14:37 Total Protein 6.4 g/dL (6.3-8.2) 09/15/16 14:37 Albumin 3.8 g/dL (3.5-5.0) 09/15/16 14:37 Vitamin B12 534.0 pg/mL (239-931) 09/15/16 14:37 Folate 13.60 ng/mL (>2.76) 09/15/16 14:37 TSH 1.53 uIU/mL (0.47-4.68) 09/16/16 04:49 Stool Occult Blood POSITIVE (NEGATIVE) 09/15/16 18:00 09/15/16 14:37 NT-Pro-B Natriuret Pep 68688 H EKG Comments: Monitor paced rhythm Impressions: Chest X-Ray 09/15/16 00:00 IMPRESSION: Mild vascular congestion. Abdomen/Pelvis CT 09/15/16 15:57 IMPRESSION: Moderate right pleural effusion. Small left pleural effusion. Increased over previous. No acute intra-abdominal process. Plan Discharge Plan: Discharged home with Follow-up with Dr. Lassiter next week
== END 2016-09-17 13:58 | disposition home or self-care (01) | DRG 291 ==
LOC: INTOOBSV 13:39 → 3N 13:39 → OBSVTOIN 09-16 09:32
PROVIDERS: ADMIT Family Medicine; ATTEND Family Medicine
PROC: 30233N1 Transfusion of Nonautologous Red Blood Cells into Peripheral Vein, Percutaneous Approach (ICD-10-PCS; principal; 2016-09-16)
DX: I13.0 Hypertensive heart and chronic kidney disease with heart failure and stage 1 through stage 4 chronic kidney disease, or unspecified chronic kidney disease (principal); K29.01 Acute gastritis with bleeding; I50.22 Chronic systolic (congestive) heart failure; N18.4 Chronic kidney disease, stage 4 (severe); D50.8 Other iron deficiency anemias; D63.8 Anemia in other chronic diseases classified elsewhere; D50.9 Iron deficiency anemia, unspecified; I25.10 Atherosclerotic heart disease of native coronary artery without angina pectoris; I48.2 Chronic atrial fibrillation; K21.9 Gastro-esophageal reflux disease without esophagitis; E11.22 Type 2 diabetes mellitus with diabetic chronic kidney disease; K62.89 Other specified diseases of anus and rectum; G25.81 Restless legs syndrome; E11.40 Type 2 diabetes mellitus with diabetic neuropathy, unspecified; Z95.0 Presence of cardiac pacemaker; Z95.1 Presence of aortocoronary bypass graft; Z95.5 Presence of coronary angioplasty implant and graft; Z87.891 Personal history of nicotine dependence; Z79.82 Long term (current) use of aspirin; Z79.01 Long term (current) use of anticoagulants; Z79.899 Other long term (current) drug therapy
CPT/HCPCS: 36415; 36430; 71020; 74176; 80048; 80053; 82272; 82607; 82728; 82746; 83036; 83540; 83550; 83880; 84443; 85025; 85027; 86850; 86900; 86901; 86920; J1940; J3490; P9016; Q0138; S0164

== ENCOUNTER → 2016-09-23 | Outpatient (CLI) | payer MEDICARE, OTHER ==
[2016-09-23 08:54] LABS: ABSOLUTE BASOPHILS # (AUTO) 0.1 10^3/uL (0.0-0.2); ABSOLUTE EOSINOPHILS # (AUTO) 0.2 10^3/uL (0.0-0.6); ABSOLUTE LYMPHOCYTES (AUTO) 0.9 10^3/uL (0.5-4.7); ABSOLUTE MONOCYTES (AUTO) 0.9 10^3/uL (0.1-1.4); ABSOLUTE NEUT (AUTO) 6.8 10^3/uL (1.7-8.2); BASOPHILS % (AUTO) 1.1 % (0-2); HEMATOCRIT 34.2 % (37.9-51.0); HEMOGLOBIN 11.4 g/dL (13.5-17.0); LYMPHOCYTES % (AUTO) 10.2 % (13-45); MEAN CORPUSCULAR HEMOGLOBIN 29.8 pg (27.0-33.4); MEAN CORPUSCULAR HGB CONC 33.3 g/dL (32.0-36.0); MEAN CORPUSCULAR VOLUME 90 fl (80-97); MONOCYTES % (AUTO) 9.8 % (3-13); RED BLOOD COUNT 3.83 10^6/uL (4.35-5.55); RED CELL DISTRIBUTION WIDTH 19.1 % (11.5-14.0); SEGMENTED NEUTROPHILS % (AUTO) 76.9 % (42-78); WHITE BLOOD COUNT 8.8 10^3/uL (4.0-10.5)
[2016-09-23 09:36] LABS: ANION GAP 16 (5-19); BLOOD UREA NITROGEN 23 mg/dL (7-20); CALCIUM 8.8 mg/dL (8.4-10.2); CARBON DIOXIDE 21 mmol/L (22-30); CHLORIDE 105 mmol/L (98-107); CREATININE RESULT 1.39 mg/dL (0.52-1.25); GLUCOSE 114 mg/dL (75-110); POTASSIUM 4.1 mmol/L (3.6-5.0); SODIUM 141.7 mmol/L (137-145)
== END ==
LOC: OD 07:09
PROVIDERS: ATTEND Family Medicine
DX: D50.9 Iron deficiency anemia, unspecified (principal); N18.4 Chronic kidney disease, stage 4 (severe)
CPT/HCPCS: 36415; 80048; 85025

== ENCOUNTER 2016-09-26 18:41 | Inpatient (IN) | payer MEDICARE, OTHER ==
[2016-09-26] MEDS ORDERED: NORMAL SALINE 1000 ML 1,000 ML IV ONE (20:43)
--- NOTE | 2016-09-26 20:49 | ER Document Report ---
ED Medical Screen (RME) - General Chief Complaint: General Weakness Stated Complaint: BODY WEAKNESS Mode of Arrival: Wheelchair Information source: Patient, Relative, [facility] Records Notes: 86-year-old male presents after recent admission with concerns for diarrhea weakness difficulty ambulating. Patient was noted to be anemic and was transfused in the hospital, was discharged while having diarrhea and notes that he is not been hydrating well but feels thirsty I have greeted and performed a rapid initial assessment of this patient. A comprehensive ED assessment and evaluation of the patient, analysis of test results and completion of the medical decision making process will be conducted by additional ED providers. PHYSICAL EXAMINATION: GENERAL: Well-appearing, well-nourished and in no acute distress. HEAD: Atraumatic, normocephalic. EYES: Pupils equal round extraocular movements intact, conjunctiva are normal. ENT: Nares patent NECK: Normal range of motion LUNGS: No respiratory distress Musculoskeletal: Normal range of motion NEUROLOGICAL: Normal speech, normal gait. PSYCH: Normal mood, normal affect. SKIN: Warm, Dry, normal turgor, no rashes or lesions noted. TRAVEL OUTSIDE OF THE [place] IN LAST 30 DAYS: No - Related Data Allergies/Adverse Reactions: digoxin [Digoxin] Allergy (Verified 09/26/16 20:40) felt bad procainamide HCl [From Procan SR] Allergy (Verified 09/26/16 20:40) ITCH, RASH ketamine Adverse Reaction (Verified 09/26/16 20:40) Past Medical History - Past Medical History Cardiac Medical History: Reports: Hx Congestive Heart Failure, Hx Coronary Artery Disease - 4 stents, Hx Heart Attack - 1980, Hx Hypercholesterolemia, Hx Hypertension Pulmonary Medical History: Reports: Hx Pneumonia - hx Denies: Hx Asthma, Hx Bronchitis, Hx COPD, Hx Tuberculosis Neurological Medical History: Denies: Hx Cerebrovascular Accident, Hx Seizures Endocrine Medical History: Reports: Hx Diabetes Mellitus Type 2 Renal/ Medical History: Reports: Hx Benign Prostatic Hyperplasia. Denies: Hx Peritoneal Dialysis GI Medical History: Reports: Hx Gastroesophageal Reflux Disease. Denies: Hx Hepatitis, Hx Hiatal Hernia Musculoskeltal Medical History: Denies Hx Arthritis Psychiatric Medical History: Denies: Hx Depression Infectious Medical History: Denies: Hx Hepatitis Past Surgical History: Reports: Hx Cardiac Catheterization - stents x4/ pmaker, defib, Hx Coronary Stent, Hx Open Heart Surgery - STENTS X 4, Hx Pacemaker - Immunizations Hx Diphtheria, Pertussis, Tetanus Vaccination: Yes
--- NOTE | 2016-09-26 21:17 | ER Document Report ---
ED General - General Chief Complaint: General Weakness Stated Complaint: BODY WEAKNESS Time seen by provider: 21:16 Mode of Arrival: Wheelchair TRAVEL OUTSIDE OF THE [place] IN LAST 30 DAYS: No - HPI Notes: 86-year-old male known history of coronary artery disease status post CABG, chronic atrial fibrillation, CHF, hypertension, diabetes mellitus type II, status post pacemaker and AICD, CK D stage IV presents with report that he has finished his Vantin antibiotic and is almost done with his Flagyl antibiotic, but has had more progressive diarrhea over the course in the past week without bright red blood per rectum. He has had progressive generalized weakness and is now unable to ambulate. Patient was discharged this past week for a GI bleed and mild proctitis with transfusion of 2 units of blood. Patient had a negative CT scan of the abdomen and pelvis, had a rectal exam showing no obvious masses or other abnormalities. The patient was discontinued off of his aspirin, but is continuing his Plavix. The patient is on acid blockers at the current time. Upon discharge, the patient was advised to have follow-up colonoscopy if bleeding persisted. Patient's states that the patient is unable to function at home now related to his inability to ambulate. Patient has continued to take his other medications including Coreg and Lasix, but is drinking much less fluids. The patient describes his weakness is generalized and states that when he stands up he feels like he is going to pass out. - Related Data Allergies/Adverse Reactions: digoxin [Digoxin] Allergy (Verified 09/26/16 20:40) felt bad procainamide HCl [From Procan SR] Allergy (Verified 09/26/16 20:40) ITCH, RASH ketamine Adverse Reaction (Verified 09/26/16 20:40) Past Medical History - General Information source: Patient, Relative, [facility] - Social History Smoking Status: Never Smoker Frequency of alcohol use: None Drug Abuse: None Lives with: Spouse/Significant other Family History: Reviewed & Not Pertinent - Past Medical History Cardiac Medical History: Reports: Hx Congestive Heart Failure, Hx Coronary Artery Disease - 4 stents, Hx Heart Attack - 1980, Hx Hypercholesterolemia, Hx Hypertension Pulmonary Medical History: Reports: Hx Pneumonia - hx Denies: Hx Asthma, Hx Bronchitis, Hx COPD, Hx Tuberculosis Neurological Medical History: Denies: Hx Cerebrovascular Accident, Hx Seizures Endocrine Medical History: Reports: Hx Diabetes Mellitus Type 2 Renal/ Medical History: Reports: Hx Benign Prostatic Hyperplasia. Denies: Hx Peritoneal Dialysis GI Medical History: Reports: Hx Gastroesophageal Reflux Disease. Denies: Hx Hepatitis, Hx Hiatal Hernia Musculoskeltal Medical History: Denies Hx Arthritis Psychiatric Medical History: Denies: Hx Depression Infectious Medical History: Denies: Hx Hepatitis Past Surgical History: Reports: Hx Cardiac Catheterization - stents x4/ pmaker, defib, Hx Coronary Stent, Hx Open Heart Surgery - STENTS X 4, Hx Pacemaker - Immunizations Hx Diphtheria, Pertussis, Tetanus Vaccination: Yes Hx Pneumococcal Vaccination: 05/05/15 Review of Systems - Review of Systems Notes: REVIEW OF SYSTEMS: CONSTITUTIONAL : Denies fever, chills, or sweats. EENT: Denies eye, ear, throat, or mouth pain or symptoms. Denies nasal or sinus congestion or discharge. Denies throat, tongue, or mouth swelling or difficulty swallowing. CARDIOVASCULAR: Denies chest pain. Denies palpitations or racing or irregular heart beat. Denies ankle edema. RESPIRATORY: Denies cough, cold, or chest congestion. Denies shortness of breath, difficulty breathing, or wheezing. GASTROINTESTINAL: Denies abdominal pain or distention. Denies vomiting. Denies blood in vomitus, stools, or per rectum. Denies black, tarry stools. Denies constipation. GENITOURINARY: Denies difficulty urinating, painful urination, burning, frequency, blood in urine, or discharge. MUSCULOSKELETAL: Denies back or neck pain or stiffness. Denies joint pain or swelling. SKIN: Denies rash, lesions or sores. HEMATOLOGIC : Denies easy bruising or bleeding. LYMPHATIC: Denies swollen, enlarged glands. NEUROLOGICAL: Denies confusion or altered mental status. Denies passing out or loss of consciousness. Denies dizziness or lightheadedness. Denies headache. Denies weakness or paralysis or loss of use of either side. Denies problems with gait or speech. Denies sensory loss, numbness, or tingling. Denies seizures. PSYCHIATRIC: Denies anxiety or stress. Denies depression, suicidal ideation, or homicidal ideation. ALL OTHER SYSTEMS REVIEWED AND NEGATIVE. Dictation was performed using Pro[employer] recognition software Physical Exam - Vital signs Vitals: Temp Pulse Resp BP Pulse Ox 98.0 F 70 18 111/88 H 99 09/26/16 19:01 09/26/16 19:01 09/26/16 19:01 09/26/16 19:01 09/26/16 19:01 - Notes Notes: PHYSICAL EXAMINATION: GENERAL: Generally weak. HEAD: Atraumatic, normocephalic. EYES: Pupils equal round and reactive to light, extraocular movements intact, sclera anicteric, conjunctiva are normal. ENT: Nares patent, oropharynx clear without exudates. Dry mucous membranes. NECK: Normal range of motion, supple without lymphadenopathy LUNGS: Breath sounds clear to auscultation bilaterally and equal. No wheezes rales or rhonchi. HEART: Regular rate and rhythm 2/6 systolic ejection murmur best auscultated at the apex. ABDOMEN: Soft, nontender, nondistended abdomen. No guarding, no rebound. No masses appreciated. Musculoskeletal: Normal range of motion, no pitting or edema. No cyanosis. NEUROLOGICAL: Cranial nerves grossly intact. Normal speech. Normal sensory exam. Motor exam patient is generally weak without focal unilateral findings. PSYCH: Normal mood, normal affect. SKIN: Warm, Dry, normal turgor, no rashes or lesions noted. Course - Re-evaluation Re-evalutation: 09/27/16 00:33 Patient was rehydrated with 1 L normal saline. Vital signs remained stable. Stool culture, blood cultures were taken. C. difficile was positive. Given that the patient is currently on Flagyl, patient was given by mouth vancomycin. Discussion was undertaken with the patient and his they were in agreement with admission for further evaluation and management. Call was made to the hospitalist for admission. Hospitalist was unable to take call immediately due to an urgent matter with another unstable patient, and report was made to Dr. Meyers. White blood cell count and lactic acid was elevated. No evidence for obvious cardiac ischemia or CVA, given the generalized weakness. 09/27/16 00:36 - Vital Signs Vital signs: Temp Pulse Resp BP Pulse Ox 98.0 F 70 24 H 127/45 H 93 09/26/16 19:01 09/26/16 19:01 09/26/16 22:01 09/26/16 22:01 09/26/16 22:01 - Laboratory Result Diagrams: 09/26/16 21:09 09/26/16 21:09 Laboratory results interpreted by me: 09/26/16 09/26/16 09/26/16 21:09 21:09 21:09 WBC 25.0 H RBC 3.71 L Hgb 11.0 L Hct 33.7 L RDW 19.8 H Seg Neuts % (Manual) 90 H Band Neutrophils % 2 L Lymphocytes % (Manual) 3 L Abs Neuts (Manual) 23.0 H Sodium 135.9 L Potassium 3.4 L Carbon Dioxide 20 L BUN 29 H Creatinine 1.74 H Est GFR ( Amer) 45 L Est GFR (Non-Af Amer) 37 L Glucose 199 H Lactic Acid Creatine Kinase 45 L NT-Pro-B Natriuret Pep 60894 H Total Protein 6.0 L Albumin 3.3 L Lipase 20.0 L Stool for White Cells 09/26/16 09/26/16 21:50 22:38 WBC RBC Hgb Hct RDW Seg Neuts % (Manual) Band Neutrophils % Lymphocytes % (Manual) Abs Neuts (Manual) Sodium Potassium Carbon Dioxide BUN Creatinine Est GFR ( Amer) Est GFR (Non-Af Amer) Glucose Lactic Acid 2.4 H Creatine Kinase NT-Pro-B Natriuret Pep Total Protein Albumin Lipase Stool for White Cells MANY H - EKG Interpretation by Me Additional EKG results interpreted by me: 09/27/16 00:37 EKG as interpreted by me showed AV sequential dual paced cardiac rhythm with appropriate capture. There was a secondary bundle branch block. There was no gross evidence for acute TN or ischemia identified. There is no change from previous EKG reviewed from 03/20/15. Critical Care Note - Critical Care Note Total time excluding time spent on procedures (mins): 36 Discharge - Discharge Clinical Impression: Weakness, C. difficile colitis, Lactic acid acidosis
[2016-09-26 21:19] LABS: HEMATOCRIT 33.7 % (37.9-51.0); HGB HCT DIFFERENCE -0.7; MEAN CORPUSCULAR HEMOGLOBIN 29.8 pg (27.0-33.4); MEAN CORPUSCULAR HGB CONC 32.7 g/dL (32.0-36.0); MEAN CORPUSCULAR VOLUME 91 fl (80-97); RED BLOOD COUNT 3.71 10^6/uL (4.35-5.55); RED CELL DISTRIBUTION WIDTH 19.8 % (11.5-14.0)
[2016-09-26 21:30] LABS: ALANINE AMINOTRANSFERASE 25 U/L (21-72); ALBUMIN 3.3 g/dL (3.5-5.0); ALKALINE PHOSPHATASE 65 U/L (38-126); ANION GAP 14 (5-19); ASPARTATE AMINO TRANSFERASE 19 U/L (17-59); BILIRUBIN,DIRECT 0.2 mg/dL (0.0-0.4); BILIRUBIN,TOTAL 1.3 mg/dL (0.2-1.3); BLOOD UREA NITROGEN 29 mg/dL (7-20); CALCIUM 8.6 mg/dL (8.4-10.2); CARBON DIOXIDE 20 mmol/L (22-30); CHLORIDE 102 mmol/L (98-107); CREATINE KINASE 45 U/L (55-170); CREATININE RESULT 1.74 mg/dL (0.52-1.25); GLUCOSE 199 mg/dL (75-110); POTASSIUM 3.4 mmol/L (3.6-5.0); SODIUM 135.9 mmol/L (137-145)
[2016-09-26 21:37] LABS: BAND NEUTROPHILS % (MANUAL) 2 % (3-5); BASOPHILS % (MANUAL) 0 % (0-2); EOSINOPHILS % (MANUAL) 0 % (0-6); LYMPHOCYTES % (MANUAL) 3 % (13-45); TOTAL CELLS COUNTED 100
[2016-09-26 21:39] LABS: ANISOCYTOSIS 1+; OVALOCYTES SLIGHT; POIKILOCYTOSIS SLIGHT
[2016-09-26 21:42] LABS: CREATINE KINASE MB 0.47 ng/mL (<4.55)
[2016-09-26 21:45] LABS: TROPONIN I 0.055 ng/mL
[2016-09-27] MEDS ORDERED: VANCOMYCIN HCL INJ 500 MG VIAL PO ONE (00:28)
[2016-09-27 03:37] LABS: ADD ON TESTING BLD IN LAB ACKNOWLEDGE
[2016-09-27 03:57] LABS: MAGNESIUM 1.9 mg/dL (1.6-2.3)
[2016-09-27] MEDS ORDERED: ACETAMINOPHEN 325 MG TABLET PO PRN (05:05)
[2016-09-27] MEDS ORDERED: POTASSI CL 20 MEQ/50 ML RIDER 20 MEQ/50 ML RTUPB IV ONE (05:30)
[2016-09-27] MEDS ORDERED: VANCOMYCIN HCL INJ 500 MG VIAL PO SCH (06:00)
[2016-09-27] MEDS: POTASSI CL 20 MEQ/NS 1L 1,000 ML IV PRN ×2 (07:16→09:50)
[2016-09-27 07:49] LABS: HEMATOCRIT 32.4 % (37.9-51.0); HEMOGLOBIN 10.6 g/dL (13.5-17.0); HGB HCT DIFFERENCE -0.6; MEAN CORPUSCULAR HEMOGLOBIN 29.8 pg (27.0-33.4); MEAN CORPUSCULAR HGB CONC 32.9 g/dL (32.0-36.0); MEAN CORPUSCULAR VOLUME 91 fl (80-97); RED BLOOD COUNT 3.57 10^6/uL (4.35-5.55); RED CELL DISTRIBUTION WIDTH 20.3 % (11.5-14.0); WHITE BLOOD COUNT 21.8 10^3/uL (4.0-10.5)
[2016-09-27 08:07] LABS: ANION GAP 11 (5-19); BLOOD UREA NITROGEN 29 mg/dL (7-20); CALCIUM 8.4 mg/dL (8.4-10.2); CARBON DIOXIDE 21 mmol/L (22-30); CHLORIDE 106 mmol/L (98-107); CREATININE RESULT 1.52 mg/dL (0.52-1.25); GLUCOSE 118 mg/dL (75-110); SODIUM 138.2 mmol/L (137-145)
[2016-09-27 08:12] LABS: POTASSIUM 2.9 mmol/L (3.6-5.0)
[2016-09-27 08:15] LABS: BASOPHILS % (MANUAL) 0 % (0-2); EOSINOPHILS % (MANUAL) 0 % (0-6); LYMPHOCYTES % (MANUAL) 3 % (13-45); TOTAL CELLS COUNTED 100
[2016-09-27 08:16] LABS: ANISOCYTOSIS 2+; TOXIC GRANULATION SLIGHT
[2016-09-27] MEDS ORDERED: METRONIDAZOLE 500 MG TABLET PO ONE (08:20)
[2016-09-27] MEDS ORDERED: OXYCODONE HCL SR 10 MG TABLET PO ONE (09:45)
[2016-09-27] MEDS: HEPARIN SOD (PORCINE) 5,000 UNIT/ML 1 ML SYRINGE SUBCUT SCH ×2 (09:57→22:35)
--- NOTE | 2016-09-27 10:17 | PDOC H&P ---
History of Present Illness Admission Date/PCP: 09/27/16 02:35 JONO CASEY MD Patient complains of: DIARRHEA, abd pain, lightheaded History of Present Illness: STORM HERNDON is a 86 year old male with underlying coronary artery disease, status post coronary arterial bypass graft, coronary arterial stent X 4 , chronic atrial fibrillation, congestive heart failure, status post AICD implant, hypertension, type II diabetes mellitus, and stage III chronic kidney disease, who presents to the emergency room for evaluation of above complaints. Patient has been discussed with emergency room physician who evaluated the patient. Hospitalized on our service the through the of this month, with discharge diagnoses including anemia, requiring transfusion of 2 units of packed red cells along with intravenous iron, acute proctitis treated with discharge medications of Vantin and Flagyl and upper GI bleed, with tarry stools , heme positive. Chronically on aspirin and Plavix for peripheral vascular disease. Instructed to discontinue aspirin and continue Plavix. Endoscopy to be considered if hemoglobin continues to drop. Continue Protonix 40 mg by mouth daily. History and physical and discharge summary have been reviewed. Starting approximately 24 hours ago, patient began having profuse nonbloody diarrhea with associated cramping abdominal pain, which worsened with certain movements. Became quite lightheaded, in particular if he stood up. [place] as though he were going to pass out, but did not. Decreased by mouth intake. No nausea vomiting, fever or chills. No chest pain. No history of C. difficile. Laboratory results are listed in [employer] [facility] and are reviewed. X-ray summary results are listed below, with full report(s) reviewed. . EKG reviewed. And compared to a tracing from 03/20/2015. Social history/personal habits: . 6 children. Retired. No use of alcohol tobacco or illicit drugs. Allergies/adverse reactions are listed in [employer] [facility] and are reviewed. Home medications Home medications initially autopopulated into [employer] may not accurately reflect patient's true medications, dosages, and/or frequencies. hydrological technical officer to reconcile medications. Unfortunately, patient uncertain of medications/dosages/frequencies. REVIEW OF SYSTEMS: Constitutional: No fever or chills. Eyes: Wears glasses. ENT: No swallowing problems or complaints. No hearing problems or complaints. Pulmonary: No current complaints. Cardiovascular: No current complaints, including chest pain. Gastrointestinal: See history and present illness. Skin: No current complaints, including rashes. Hematologic: Easy bruising. Neurologic: Restless legs. Musculoskeletal: No current complaints, including painful joints. Psychiatric: No current complaints, including anxiety or depression. Endocrine: No current complaints, including polyuria. Genitourinary: No current complaints, including dysuria. PHYSICAL EXAMINATION: 5 feet 4 inches tall. 59 kg. BMI 22.3 kg/m.Pulse 67 and regular. Respirations are 16 and unlabored. 91% saturation on 1 L oxygen per nasal cannula. Blood pressure 127/45. Temperature 98.0. Thin otherwise well-developed elderly male appearing perhaps a bit younger than his stated age. Pleasant awake alert and cooperative. Appears not to feel very well. Sitting on the bedside toilet. Mildly anxious, without agitation. Skin is warm and dry. No grossly obvious evidence of rash in areas of skin examined. No subcutaneous nodules palpated. ENT: Hearing grossly normal to normal conversation. Tongue midline on protrusion pink and slightly tacky. Eyes: No scleral icterus. Pupils equal and reactive to light at 4 mm. Slightly pale conjunctivae. Neck is supple and nontender to gentle active range of motion and palpation. Midline trachea. No palpable thyroid nodule mass enlargement or tenderness. Lymphatic: No palpable cervical or clavicular nodes. Neck and lymphatic exams limited by patient body habitus. Psychiatric: Reasonable insight into acute and chronic medical issues. Oriented to time location and why here. Lungs: Auscultation reveals clear and equal breath sounds bilaterally. No use of accessory respiratory muscles. Cardiovascular: Heart regular rate and rhythm, without gallop murmur or rub. No carotid or abdominal aortic bruits. No ankle edema. Abdomen: soft, slightly distended with positive bowel sounds and mild diffuse tenderness, certainly without evidence of guarding or peritoneal signs.. Unable to adequately evaluate abdomen for masses or organomegaly due to distention and discomfort. Extremities: No calf tenderness to compression. No grossly obvious visual evidence of calf swelling. Neurologic: Moves upper extremities grossly normally. Patellar reflexes absent. Dorsiflexion and plantarflexion of feet 5 / 5 and symmetric. Past Medical History Cardiac Medical History: Reports: Congestive Heart Failure - Status post AICD implant, Coronary Artery Disease - 4 stents; coronary arterial bypass graft., Myocardial Infarction - 1980, Hyperlipidema, Hypertension Denies: DVT, Pulmonary Embolism Pulmonary Medical History: Reports: Pneumonia - hx Denies: Asthma, Bronchitis, Chronic Obstructive Pulmonary Disease (COPD), Sleep Apnea, Tuberculosis EENT Medical History: Reports: Eyes - Glasses Denies: Ears, Throat Neurological Medical History: Denies: Hemorrhagic CVA, Ischemic CVA, Seizures Endocrine Medical History: Denies: Diabetes Mellitus Type 1, Diabetes Mellitus Type 2, Hyperthyroidism, Hypothyroidism Renal/ Medical History: Reports: Chronic Kidney Disease - Stage III Malignancy Medical History: Reports: Skin Cancer GI Medical History: Denies: Cirrhosis, Hepatitis, Hiatal Hernia, Peptic Ulcer Disease Musculoskeltal Medical History: Denies: Arthritis Psychiatric Medical History: Denies: Alcohol Dependency, Depression, General Anxiety Disorder, Substance Abuse, Tobacco Dependency Hematology: Reports: Other - Easy bruising Infectious Medical History: Denies: Hepatitis B, Hepatitis C, Methicillin-Resistant Staph Aureus Past Surgical History Past Surgical History: Reports: Cardiac Catheterization - stents x4/ pmaker, defib, Coronary Stent, Pacemaker - AICD implant Social History Information Source: Patient, Emergency Med Personnel, [facility] Records Lives with: Spouse/Significant other Smoking Status: Unknown if Ever Smoked Frequency of Alcohol Use: None Hx Recreational Drug Use: No Drugs: None Hx Prescription Drug Abuse: No - Advance Directive Resuscitation Status: Full Code Surrogate healthcare decision maker:: Family History Family History: Reviewed & Not Pertinent Parental Family History Reviewed: Yes - father of "stomach problems." Mother of old age. Children Family History Reviewed: Yes - Healthy Sibling(s) Family History Reviewed.: Yes - Healthy Medication/Allergy Home Medications: RX: Allopurinol [Zyloprim 100 mg Tablet] 100 mg PO QPM 09/27/16 RX: Amiodarone HCl [Cordarone 200 mg Tablet] 200 mg PO QPM 09/27/16 RX: Aspirin [Ecotrin 81 mg EC Tablet] 81 mg PO DAILY 09/27/16 RX: Atorvastatin Calcium [Lipitor 10 mg Tablet] 10 mg PO QPM 09/27/16 RX: Carvedilol [Coreg 12.5 mg Tablet] 12.5 mg PO Q12 09/27/16 RX: Clopidogrel Bisulfate [Plavix 75 mg Tablet] 75 mg PO QPM 09/27/16 RX: Docusate Sodium [Colace 100 mg Capsule] 100 mg PO QPM 09/27/16 RX: Ferrous Sulfate [Feosol 325 mg Tablet] 325 mg PO DAILY 09/27/16 RX: Finasteride [Proscar 5 mg Tablet] 5 mg PO DAILY 09/27/16 RX: Furosemide [Lasix] 20 mg PO QPM 09/27/16 RX: Furosemide [Lasix] 40 mg PO QAM 09/27/16 RX: Gabapentin [Neurontin 100 mg Capsule] 100 mg PO QHS 09/27/16 RX: Linaclotide [Linzess] 290 mcg PO DAILY 09/27/16 RX: Losartan Potassium [Cozaar 25 mg Tablet] 25 mg PO Q12 09/27/16 RX: Oxycodone HCl [Oxycontin] 10 mg PO QHS 09/27/16 RX: Pantoprazole Sodium [Protonix] 40 mg PO DAILY 09/27/16 RX: Ropinirole HCl [Requip] 0.5 mg PO QHS 09/27/16 RX: Tamsulosin HCl [Flomax 0.4 mg Cap.sr] 0.4 mg PO QPM 09/27/16 RX: Acetaminophen [Tylenol 325 mg Tablet] 650 mg PO Q4HP PRN tablet 09/29/16 Vancomycin HCl [Vancocin HCl] 125 mg PO Q6H #32 capsule 09/29/16 Allergies/Adverse Reactions: digoxin [Digoxin] Allergy (Verified 09/26/16 20:40) felt bad procainamide HCl [From Procan SR] Allergy (Verified 09/26/16 20:40) ITCH, RASH ketamine Adverse Reaction (Verified 09/26/16 20:40) Physical Exam Vital Signs: Temp Pulse Resp BP Pulse Ox 98.0 F 70 20 127/45 H 91 L 09/26/16 19:01 09/26/16 19:01 09/27/16 01:00 09/26/16 22:01 09/27/16 01:00 Results Impressions: Chest X-Ray 09/26/16 22:59 IMPRESSION: CARDIAC ENLARGEMENT. MILD VASCULAR CONGESTION. SIMILAR APPEARANCE TO THE PRIOR STUDY. Assessment & Plan - Diagnosis (1) C. difficile colitis Is this a current diagnosis for this admission?: YesPlan: Oral vancomycin. IV fluids. I have strongly encouraged patient not to get out of bed without notifying staff , to avoid a fall with injury. Knee high SCDs for DVT prophylaxis, along with subcutaneous heparin. Impression and plans were discussed with patient, who concurs. Time spent in evaluation and management of patient: 59 minutes. (2) Elevated troponin Is this a current diagnosis for this admission?: YesPlan: No evidence of acute coronary syndrome, but will repeat troponin. (3) Hypokalemia Is this a current diagnosis for this admission?: YesPlan: Potassium supplement with follow-up chemistry. (4) Weakness Is this a current diagnosis for this admission?: YesPlan: Likely due at least in part to combination of infection along with dehydration. Strongly encouraged patient not to get out of bed without notifying staff to avoid a fall with injury. Orthostatic vital signs every 4 hours while awake. (5) Anemia Qualifiers: Anemia type: unspecified type Qualified Code(s): D64.9 - Anemia, unspecified Is this a current diagnosis for this admission?: YesPlan: Follow-up CBC with differential. No need for transfusion at present time. (6) CKD (chronic kidney disease), stage III Is this a current diagnosis for this admission?: Yes (7) Dyslipidemia Is this a current diagnosis for this admission?: YesPlan: Resume home medications as appropriate once these have been determined and reviewed. (8) RLS (restless legs syndrome) Is this a current diagnosis for this admission?: YesPlan: Resume home medications as appropriate once these have been determined and reviewed. - Inpatient Certification Based on my medical assessment, after consideration of the patient's comorbidities, presenting symptoms, or acuity I expect that the services needed warrant INPATIENT care.: Yes I certify that my determination is in accordance with my understanding of Medicare's requirements for reasonable and necessary INPATIENT services [42 CFR 412.3e].: Yes Medical Necessity: Need Close Monitoring Due to Risk of Patient Decompensation, Need For IV Fluids, Risk of Complication if Not Cared For in Hospital Post Hospital Care: D/C or Transfer Summary
[2016-09-27] MEDS ORDERED: OXYCODONE HCL SR 10 MG TABLET PO PRN ×2 (10:52→22:00)
--- NOTE | 2016-09-27 11:19 | EKG REPORT ---
SEVERITY:- ABNORMAL ECG - A-V DUAL-PACED COMPLEXES W/ SOME INHIBITION : Confirmed by: Demetrius Flores 27-Sep-2016 11:18:34
[2016-09-27] MEDS ORDERED: METRONIDAZOLE 500 MG TABLET PO SCH (14:00)
[2016-09-27] MEDS: VANCOMYCIN HCL INJ 500 MG VIAL PO SCH ×2 (14:19→17:57)
[2016-09-27] MEDS: CLOPIDOGREL BISULFATE 75 MG TABLET PO SCH (17:56)
[2016-09-27] MEDS: ATORVASTATIN CALCIUM 10 MG TABLET PO SCH (17:56)
[2016-09-27] MEDS: AMIODARONE HCL 200 MG TABLET PO SCH (17:56)
[2016-09-27] MEDS: ALLOPURINOL 100 MG TABLET PO SCH (17:57)
[2016-09-27] MEDS: TAMSULOSIN HCL 0.4 MG CAP.SR.24H PO SCH (17:57)
[2016-09-27] MEDS ORDERED: (PENDING PHARMACY ID) (Ropinirole Hcl [Requip] 0.5 MG) PO SCH (22:00)
[2016-09-27] MEDS ORDERED: OXYCODONE HCL SR 10 MG TABLET PO SCH (22:00)
[2016-09-27] MEDS: GABAPENTIN 100 MG CAPSULE PO SCH (22:36)
[2016-09-27] MEDS: ROPINIROLE HCL 0.25 MG TABLET PO SCH (22:37)
[2016-09-27] MEDS: CARVEDILOL 12.5 MG TABLET PO SCH (22:38)
[2016-09-27] MEDS: LOSARTAN POTASSIUM 25 MG TABLET PO SCH (22:38)
[2016-09-27] MEDS ORDERED: FUROSEMIDE INJ/PF 40 MG/4 ML SDV IV ONE (23:30)
[2016-09-27] MEDS: POTASSI CL 20 MEQ/50 ML RIDER 20 MEQ/50 ML RTUPB IV SCH (23:39)
[2016-09-28] MEDS: VANCOMYCIN HCL INJ 500 MG VIAL PO SCH ×5 (00:08→23:55)
[2016-09-28] MEDS: POTASSI CL 20 MEQ/50 ML RIDER 20 MEQ/50 ML RTUPB IV SCH (01:34)
[2016-09-28 02:00] LABS: APPEARANCE,URINE CLEAR; BILIRUBIN,URINE NEGATIVE (NEGATIVE); GLUCOSE, URINE NEGATIVE (NEGATIVE); KETONES,URINE NEGATIVE (NEGATIVE); LEUKOCYTE ESTERASE,URINE NEGATIVE (NEGATIVE); NITRITE,URINE NEGATIVE (NEGATIVE); PROTEIN,URINE NEGATIVE (NEGATIVE); URINE SPECIFIC GRAVITY 1.011; UROBILINOGEN,URINE NEGATIVE mg/dL (<2.0)
[2016-09-28 06:56] LABS: HEMATOCRIT 33.8 % (37.9-51.0); HEMOGLOBIN 11.1 g/dL (13.5-17.0); HGB HCT DIFFERENCE -0.5; MEAN CORPUSCULAR HEMOGLOBIN 29.9 pg (27.0-33.4); MEAN CORPUSCULAR HGB CONC 32.8 g/dL (32.0-36.0); MEAN CORPUSCULAR VOLUME 91 fl (80-97); RED BLOOD COUNT 3.71 10^6/uL (4.35-5.55); RED CELL DISTRIBUTION WIDTH 20.1 % (11.5-14.0); WHITE BLOOD COUNT 18.1 10^3/uL (4.0-10.5)
[2016-09-28 07:06] LABS: ALANINE AMINOTRANSFERASE 30 U/L (21-72); ALKALINE PHOSPHATASE 69 U/L (38-126); ANION GAP 12 (5-19); ASPARTATE AMINO TRANSFERASE 23 U/L (17-59); BILIRUBIN,DIRECT 0.2 mg/dL (0.0-0.4); BILIRUBIN,TOTAL 0.6 mg/dL (0.2-1.3); BLOOD UREA NITROGEN 29 mg/dL (7-20); CALCIUM 8.7 mg/dL (8.4-10.2); CARBON DIOXIDE 20 mmol/L (22-30); CHLORIDE 110 mmol/L (98-107); GLUCOSE 142 mg/dL (75-110); SODIUM 142.2 mmol/L (137-145); TOTAL PROTEIN 5.6 g/dL (6.3-8.2)
[2016-09-28 07:13] LABS: POTASSIUM 4.8 mmol/L (3.6-5.0)
[2016-09-28 07:34] LABS: BASOPHILS % (MANUAL) 0 % (0-2); EOSINOPHILS % (MANUAL) 0 % (0-6); LYMPHOCYTES % (MANUAL) 4 % (13-45); TOTAL CELLS COUNTED 100
[2016-09-28 07:37] LABS: ANISOCYTOSIS 2+
[2016-09-28] MEDS: FERROUS SULFATE 325 MG TABLET PO SCH (08:58)
[2016-09-28] MEDS: ASPIRIN 81 MG TABLET, ENT COATED PO SCH (08:59)
[2016-09-28] MEDS: CARVEDILOL 12.5 MG TABLET PO SCH ×2 (08:59→22:25)
[2016-09-28] MEDS: LOSARTAN POTASSIUM 25 MG TABLET PO SCH ×2 (08:59→22:28)
[2016-09-28] MEDS: LANSOPRAZOLE 30 MG TAB.RAP.DR PO SCH (08:59)
[2016-09-28] MEDS ORDERED: FUROSEMIDE INJ/PF 40 MG/4 ML SDV IV ONE (09:00)
[2016-09-28] MEDS ORDERED: METOLAZONE 5 MG TABLET PO ONE (09:00)
[2016-09-28] MEDS: HEPARIN SOD (PORCINE) 5,000 UNIT/ML 1 ML SYRINGE SUBCUT SCH ×2 (09:00→22:29)
[2016-09-28] MEDS: FINASTERIDE 5 MG TABLET PO SCH (09:00)
--- NOTE | 2016-09-28 14:40 | PDOC PROGRESS REPORT ---
Subjective Progress Note for:: 09/28/16 Subjective:: Patient is seen on morning rounds. His resting in bed. He apparently had a rough night with some mild respiratory distress. He had bilateral crackles symptoms of fluid volume overload. He was diuresed with improvement of his symptoms. He has history of chronic systolic heart failure with EF 20%. He was being gently rehydrated with IV fluid due to C. difficile diarrhea. States his diarrhea did resolve yesterday afternoon. He denies any chest pain, palpitations or dizziness. He denies any nausea, abdominal pain or further diarrhea. He states he is mostly just tired at the present time. Physical Exam Vital Signs: Temp Pulse Resp BP Pulse Ox 97.8 F 101 H 18 121/53 L 97 09/28/16 07:50 09/28/16 07:50 09/28/16 07:50 09/28/16 07:50 09/28/16 07:50 Intake & Output 09/27/16 09/28/16 09/29/16 06:59 06:59 06:59 Intake Total 1625 500 Output Total 200 1250 Balance 1425 -750 Weight 65 kg General appearance: PRESENT: no acute distress, thin, well-developed, well- nourished Head exam: PRESENT: atraumatic, normocephalic Eye exam: PRESENT: conjunctiva pink, EOMI, PERRLA. ABSENT: scleral icterus Ear exam: PRESENT: normal external ear exam Mouth exam: PRESENT: moist, tongue midline Neck exam: ABSENT: carotid bruit, JVD, lymphadenopathy, thyromegaly Respiratory exam: PRESENT: crackles - Basilar, symmetrical, unlabored. ABSENT: rales, rhonchi, wheezes Cardiovascular exam: PRESENT: RRR, systolic murmur. ABSENT: diastolic murmur, rubs Pulses: PRESENT: normal dorsalis pedis pul Vascular exam: PRESENT: normal capillary refill GI/Abdominal exam: PRESENT: normal bowel sounds, soft. ABSENT: distended, guarding, mass, organolmegaly, rebound, tenderness Rectal exam: PRESENT: deferred Extremities exam: PRESENT: full ROM. ABSENT: calf tenderness, clubbing, pedal edema Musculoskeletal exam: PRESENT: ambulatory, full ROM, normal inspection Neurological exam: PRESENT: alert, awake, oriented to person, oriented to place , oriented to time, oriented to situation, CN II-XII grossly intact. ABSENT: motor sensory deficit Psychiatric exam: PRESENT: appropriate affect, normal mood. ABSENT: homicidal ideation, suicidal ideation Skin exam: PRESENT: dry, intact, warm. ABSENT: cyanosis, rash Results Laboratory Results: 09/28/16 05:39 09/28/16 05:39 09/27/16 09/28/16 09/28/16 23:46 01:00 05:39 WBC 18.1 H RBC 3.71 L Hgb 11.1 L Hct 33.8 L MCV 91 MCH 29.9 MCHC 32.8 RDW 20.1 H Plt Count 151 Seg Neutrophils % Not Reportable Lymphocytes % Not Reportable Monocytes % Not Reportable Eosinophils % Not Reportable Basophils % Not Reportable Absolute Neutrophils Not Reportable Absolute Lymphocytes Not Reportable Absolute Monocytes Not Reportable Absolute Eosinophils Not Reportable Absolute Basophils Not Reportable Sodium Potassium Chloride Carbon Dioxide Anion Gap BUN Creatinine Est GFR ( Amer) Est GFR (Non-Af Amer) Glucose Calcium Magnesium 2.0 Total Bilirubin AST ALT Alkaline Phosphatase Total Protein Albumin Urine Color YELLOW Urine Appearance CLEAR Urine pH 5.0 Ur Specific [place] 1.011 Urine Protein NEGATIVE Urine Glucose (UA) NEGATIVE Urine Ketones NEGATIVE Urine Blood NEGATIVE Urine Nitrite NEGATIVE Ur Leukocyte Esterase NEGATIVE Urine WBC (Auto) 0 Urine RBC (Auto) 0 09/28/16 05:39 WBC RBC Hgb Hct MCV MCH MCHC RDW Plt Count Seg Neutrophils % Lymphocytes % Monocytes % Eosinophils % Basophils % Absolute Neutrophils Absolute Lymphocytes Absolute Monocytes Absolute Eosinophils Absolute Basophils Sodium 142.2 Potassium 4.8 D Chloride 110 H Carbon Dioxide 20 L Anion Gap 12 BUN 29 H Creatinine 1.70 H Est GFR ( Amer) 46 L Est GFR (Non-Af Amer) 38 L Glucose 142 H Calcium 8.7 Magnesium Total Bilirubin 0.6 AST 23 ALT 30 Alkaline Phosphatase 69 Total Protein 5.6 L Albumin 3.0 L Urine Color Urine Appearance Urine pH Ur Specific [place] Urine Protein Urine Glucose (UA) Urine Ketones Urine Blood Urine Nitrite Ur Leukocyte Esterase Urine WBC (Auto) Urine RBC (Auto) 09/27/16 07:19 Troponin I 0.038 Impressions: Chest X-Ray 09/26/16 22:59 IMPRESSION: CARDIAC ENLARGEMENT. MILD VASCULAR CONGESTION. SIMILAR APPEARANCE TO THE PRIOR STUDY. Assessment & Plan - Diagnosis (1) C. difficile colitis Is this a current diagnosis for this admission?: YesPlan: Patient is on oral vancomycin due to Flagyl failure. Diarrhea has resolved. (2) Acute respiratory failure Qualifiers: Respiratory failure complication: hypoxia Qualified Code(s): J96.01 - Acute respiratory failure with hypoxia Is this a current diagnosis for this admission?: YesPlan: Secondary to mild fluid volume overload. Patient was diuresed with 40 mg of IV Lasix (3) CKD stage G3b/A1, GFR 30 - 44 and albumin creatinine ratio >30 mg/g Is this a current diagnosis for this admission?: YesPlan: Creatinine is stable. We'll avoid nephrotoxic medications and dosages (4) Hypokalemia Is this a current diagnosis for this admission?: YesPlan: Repleted (5) Anemia Qualifiers: Anemia type: unspecified type Qualified Code(s): D64.9 - Anemia, unspecified Is this a current diagnosis for this admission?: YesPlan: Stable (6) Systolic CHF, acute on chronic Is this a current diagnosis for this admission?: YesPlan: Patient was being hydrated with IV fluids secondary to dehydration from colitis. He had some mild exacerbation of his systolic heart failure last evening requiring IV diuretics. (7) HBP (high blood pressure) Qualifiers: Hypertension type: essential hypertension Qualified Code(s): I10 - Essential (primary) hypertension Is this a current diagnosis for this admission?: YesPlan: Continue current medications he is normotensive. - Time Time Spent with patient: 25-34 minutes Critical Time spent with patient: 15-24 minutes Medications reviewed and adjusted accordingly: Yes Anticipated discharge: Home with Homehealth
[2016-09-28] MEDS: ATORVASTATIN CALCIUM 10 MG TABLET PO SCH (18:28)
[2016-09-28] MEDS: TAMSULOSIN HCL 0.4 MG CAP.SR.24H PO SCH (18:28)
[2016-09-28] MEDS: CLOPIDOGREL BISULFATE 75 MG TABLET PO SCH (18:29)
[2016-09-28] MEDS: AMIODARONE HCL 200 MG TABLET PO SCH (18:29)
[2016-09-28] MEDS: ALLOPURINOL 100 MG TABLET PO SCH (18:29)
[2016-09-28] MEDS: GABAPENTIN 100 MG CAPSULE PO SCH (22:28)
[2016-09-28] MEDS: ROPINIROLE HCL 0.25 MG TABLET PO SCH (22:28)
[2016-09-29 05:57] LABS: ABSOLUTE EOSINOPHILS # (AUTO) 0.1 10^3/uL (0.0-0.6); ABSOLUTE LYMPHOCYTES (AUTO) 0.6 10^3/uL (0.5-4.7); ABSOLUTE MONOCYTES (AUTO) 0.7 10^3/uL (0.1-1.4); ABSOLUTE NEUT (AUTO) 9.1 10^3/uL (1.7-8.2); BASOPHILS % (AUTO) 0.3 % (0-2); EOSINOPHILS % (AUTO) 1.3 % (0-6); HEMATOCRIT 31.2 % (37.9-51.0); HEMOGLOBIN 10.4 g/dL (13.5-17.0); LYMPHOCYTES % (AUTO) 5.9 % (13-45); MEAN CORPUSCULAR HEMOGLOBIN 30.2 pg (27.0-33.4); MEAN CORPUSCULAR HGB CONC 33.5 g/dL (32.0-36.0); MEAN CORPUSCULAR VOLUME 90 fl (80-97); MONOCYTES % (AUTO) 6.9 % (3-13); RED BLOOD COUNT 3.46 10^6/uL (4.35-5.55); RED CELL DISTRIBUTION WIDTH 19.8 % (11.5-14.0); SEGMENTED NEUTROPHILS % (AUTO) 85.6 % (42-78); WHITE BLOOD COUNT 10.6 10^3/uL (4.0-10.5)
[2016-09-29 06:13] LABS: ANION GAP 10 (5-19); BLOOD UREA NITROGEN 33 mg/dL (7-20); CALCIUM 8.6 mg/dL (8.4-10.2); CARBON DIOXIDE 21 mmol/L (22-30); CHLORIDE 108 mmol/L (98-107); CREATININE RESULT 1.43 mg/dL (0.52-1.25); GLUCOSE 112 mg/dL (75-110); SODIUM 139.3 mmol/L (137-145)
[2016-09-29 06:23] LABS: POTASSIUM 3.6 mmol/L (3.6-5.0)
[2016-09-29] MEDS: VANCOMYCIN HCL INJ 500 MG VIAL PO SCH (06:45)
[2016-09-29 08:46] VITALS: BP 137/59
[2016-09-29] MEDS: LANSOPRAZOLE 30 MG TAB.RAP.DR PO SCH (10:05)
[2016-09-29] MEDS: FERROUS SULFATE 325 MG TABLET PO SCH (10:05)
[2016-09-29] MEDS: FINASTERIDE 5 MG TABLET PO SCH (10:05)
[2016-09-29] MEDS: CARVEDILOL 12.5 MG TABLET PO SCH (10:05)
[2016-09-29] MEDS: ASPIRIN 81 MG TABLET, ENT COATED PO SCH (10:05)
[2016-09-29] MEDS: LOSARTAN POTASSIUM 25 MG TABLET PO SCH (10:06)
[2016-09-29] MEDS: HEPARIN SOD (PORCINE) 5,000 UNIT/ML 1 ML SYRINGE SUBCUT SCH (10:06)
--- NOTE | 2016-09-29 11:27 | PDOC DISCHARGE SUMMARY ---
General - Admit/Disc Date/PCP Admission Date/Primary Care Provider: 09/27/16 05:05 JONO CASEY MD Discharge Date: 09/29/16 - Discharge Diagnosis (1) C. difficile colitis Is this a current diagnosis for this admission?: YesSummary: Diarrhea has resolved. Patient had been on Flagyl and Vantin 10 days ago for colitis. The therefore considered this to be C. difficile associated with Flagyl failure, he will remain on a 8 more days of oral vancomycin (2) Acute respiratory failure Is this a current diagnosis for this admission?: YesSummary: Resolved secondary to fluid volume overload. 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 He did require diuresis with IV Lasix after he was fluid resuscitated. (7) HBP (high blood pressure) Is this a current diagnosis for this admission?: YesSummary: Presently normotensive on current medication - Additional Information Resuscitation Status: Full Code Discharge Diet: Cardiac Discharge Activity: Activity As Tolerated, Balance Activity w/Rest Home Medications: Allopurinol [Zyloprim 100 mg Tablet] 100 mg PO QPM 09/27/16 Amiodarone HCl [Cordarone 200 mg Tablet] 200 mg PO QPM 09/27/16 Aspirin [Ecotrin 81 mg EC Tablet] 81 mg PO DAILY 09/27/16 Atorvastatin Calcium [Lipitor 10 mg Tablet] 10 mg PO QPM 09/27/16 Carvedilol [Coreg 12.5 mg Tablet] 12.5 mg PO Q12 09/27/16 Clopidogrel Bisulfate [Plavix 75 mg Tablet] 75 mg PO QPM 09/27/16 Docusate Sodium [Colace 100 mg Capsule] 100 mg PO QPM 09/27/16 Ferrous Sulfate [Feosol 325 mg Tablet] 325 mg PO DAILY 09/27/16 Finasteride [Proscar 5 mg Tablet] 5 mg PO DAILY 09/27/16 Furosemide [Lasix] 20 mg PO QPM 09/27/16 Furosemide [Lasix] 40 mg PO QAM 09/27/16 Gabapentin [Neurontin 100 mg Capsule] 100 mg PO QHS 09/27/16 Linaclotide [Linzess] 290 mcg PO DAILY 09/27/16 Losartan Potassium [Cozaar 25 mg Tablet] 25 mg PO Q12 09/27/16 Oxycodone HCl [Oxycontin] 10 mg PO QHS 09/27/16 Pantoprazole Sodium [Protonix] 40 mg PO DAILY 09/27/16 Ropinirole HCl [Requip] 0.5 mg PO QHS 09/27/16 Tamsulosin HCl [Flomax 0.4 mg Cap.sr] 0.4 mg PO QPM 09/27/16 Acetaminophen [Tylenol 325 mg Tablet] 650 mg PO Q4HP PRN tablet 09/29/16 Vancomycin HCl [Vancocin HCl] 125 mg PO Q6H #32 capsule 09/29/16 History of Present Illness Patient complains of: Diarrhea, abdominal pain and lightheadedness History of Present Illness: STORM HERNDON is a 86 year old male with underlying coronary artery disease, status post coronary arterial bypass graft, chronic atrial fibrillation , congestive heart failure, status post AICD implant, hypertension, type II diabetes mellitus, it was stage III chronic kidney disease who presents to the emergency room for evaluation of above complaints. Patient has been discussed with emergency room physician who evaluated the patient. Hospitalized on our service the through the of this month, with discharge diagnoses including anemia, requiring transfusion of 2 units of packed red cells along with intravenous iron, acute proctitis treated with discharge medications of Vantin and Flagyl and upper GI bleed, with tarry stools , heme positive. Chronically on aspirin and Plavix for peripheral vascular disease. Instructed to discontinue aspirin and continue Plavix. Endoscopy to be considered if hemoglobin continues to drop. Continue Protonix 40 mg by mouth daily. History and physical and discharge summary have been reviewed. Starting approximately 24 hours ago, patient began having profuse nonbloody diarrhea with associated cramping abdominal pain, which worsened with certain movements. Became quite lightheaded, in particular if he stood up. [place] as though he were going to pass out, but did not. Decreased by mouth intake. No nausea vomiting, fever or chills. No chest pain. No history of C. difficile. Hospital Course Hospital Course: Patient was admitted to [facility] on telemetry. He was started on oral vancomycin after stool culture showed positive for C. difficile. He was gently rehydrated with IV fluids. Over the course of the day his diarrhea resolved. He had no further abdominal pain. Overnight he was noted to have increasing shortness of breath with bilateral crackles in both lungs. He was given IV Lasix with improvement of his symptoms. Following morning he continued to have some mild shortness of breath was given another dose of IV Lasix and metolazone, he diuresed well. This morning he feels well he has no shortness of breath. He would like to go home. Physical Exam Vital Signs: Temp Pulse Resp BP Pulse Ox 97.7 F 61 16 137/59 H 98 09/29/16 08:46 09/29/16 08:46 09/29/16 08:46 09/29/16 08:46 09/29/16 08:46 Intake & Output 09/28/16 09/29/16 09/30/16 06:59 06:59 06:59 Intake Total 1625 910 Output Total 200 1975 Balance 1425 -1065 Weight 65.9 kg General appearance: PRESENT: no acute distress, well-developed, well-nourished Head exam: PRESENT: atraumatic, normocephalic Eye exam: PRESENT: conjunctiva pink, EOMI, PERRLA. ABSENT: scleral icterus Ear exam: PRESENT: normal external ear exam Mouth exam: PRESENT: moist, tongue midline Neck exam: ABSENT: carotid bruit, JVD, lymphadenopathy, thyromegaly Respiratory exam: PRESENT: clear to auscultation sheila. ABSENT: rales, rhonchi, wheezes Cardiovascular exam: PRESENT: RRR. ABSENT: diastolic murmur, rubs, systolic murmur Pulses: PRESENT: normal dorsalis pedis pul Vascular exam: PRESENT: normal capillary refill GI/Abdominal exam: PRESENT: normal bowel sounds, soft. ABSENT: distended, guarding, mass, organolmegaly, rebound, tenderness Rectal exam: PRESENT: deferred Extremities exam: PRESENT: full ROM. ABSENT: calf tenderness, clubbing, pedal edema Neurological exam: PRESENT: alert, awake, oriented to person, oriented to place , oriented to time, oriented to situation, CN II-XII grossly intact. ABSENT: motor sensory deficit Psychiatric exam: PRESENT: appropriate affect, normal mood. ABSENT: homicidal ideation, suicidal ideation Skin exam: PRESENT: dry, intact, warm. ABSENT: cyanosis, rash Results Laboratory Results: 09/29/16 05:18 09/29/16 05:18 09/29/16 09/29/16 05:18 05:18 WBC 10.6 H RBC 3.46 L Hgb 10.4 L Hct 31.2 L MCV 90 MCH 30.2 MCHC 33.5 RDW 19.8 H Plt Count 138 L Seg Neutrophils % 85.6 H Lymphocytes % 5.9 L Monocytes % 6.9 Eosinophils % 1.3 Basophils % 0.3 Absolute Neutrophils 9.1 H Absolute Lymphocytes 0.6 Absolute Monocytes 0.7 Absolute Eosinophils 0.1 Absolute Basophils 0.0 Sodium 139.3 Potassium 3.6 D Chloride 108 H Carbon Dioxide 21 L Anion Gap 10 BUN 33 H Creatinine 1.43 H Est GFR ( Amer) 57 L Est GFR (Non-Af Amer) 47 L Glucose 112 H Calcium 8.6 09/27/16 07:19 Troponin I 0.038 Impressions: Chest X-Ray 09/26/16 22:59 IMPRESSION: CARDIAC ENLARGEMENT. MILD VASCULAR CONGESTION. SIMILAR APPEARANCE TO THE PRIOR STUDY. Qualifiers PATEINT BEING DISCHARGED WITH ANY OF THE FOLLOWING DIAGNOSIS?: No Plan Discharge Plan: Home with . Time Spent: Less than 30 Minutes
== END 2016-09-29 10:30 | disposition home or self-care (01) | DRG 371 ==
LOC: ER 18:41 → EH 09-27 02:35 → UNDOADMIN 09-27 02:35 → EH 09-27 05:05 → 3W 09-27 05:58 → EH 09-27 05:58
PROVIDERS: ADMIT Family Medicine; ATTEND Family Medicine
DX: A04.7 Enterocolitis due to Clostridium difficile (principal); I50.23 Acute on chronic systolic (congestive) heart failure; J96.01 Acute respiratory failure with hypoxia; E87.2 Acidosis; I13.0 Hypertensive heart and chronic kidney disease with heart failure and stage 1 through stage 4 chronic kidney disease, or unspecified chronic kidney disease; I25.10 Atherosclerotic heart disease of native coronary artery without angina pectoris; I48.2 Chronic atrial fibrillation; E11.22 Type 2 diabetes mellitus with diabetic chronic kidney disease; N18.3 Chronic kidney disease, stage 3 (moderate); R77.8 Other specified abnormalities of plasma proteins; E87.6 Hypokalemia; D64.9 Anemia, unspecified; E78.5 Hyperlipidemia, unspecified; G25.81 Restless legs syndrome; Z79.01 Long term (current) use of anticoagulants; Z79.82 Long term (current) use of aspirin; Z79.899 Other long term (current) drug therapy; Z95.810 Presence of automatic (implantable) cardiac defibrillator
CPT/HCPCS: 36415; 71010; 80048; 80053; 81001; 82550; 82553; 83605; 83690; 83735; 83880; 84484; 85025; 87040; 87045; 87205; 87493; 89055; 93005; 93010; 94799; 99291; J1644; J1940; J3370; J3480; J3490

== ENCOUNTER → 2016-10-17 | Outpatient (CLI) | payer MEDICARE, OTHER | LOC: OD 08:40 | PROVIDERS: ATTEND Family Medicine | DX: R06.02 Shortness of breath (principal) | CPT/HCPCS: 71020 ==

== ENCOUNTER 2016-10-22 11:52 | Emergency (ER) | payer MEDICARE, OTHER ==
[2016-10-22 12:55] LABS: HEMATOCRIT 36.8 % (37.9-51.0); HGB HCT DIFFERENCE -0.8; MEAN CORPUSCULAR HEMOGLOBIN 30.1 pg (27.0-33.4); MEAN CORPUSCULAR HGB CONC 32.6 g/dL (32.0-36.0); MEAN CORPUSCULAR VOLUME 93 fl (80-97); RED BLOOD COUNT 3.98 10^6/uL (4.35-5.55); RED CELL DISTRIBUTION WIDTH 19.5 % (11.5-14.0); WHITE BLOOD COUNT 14.8 10^3/uL (4.0-10.5)
--- NOTE | 2016-10-22 12:55 | ER Document Report ---
ED Respiratory Problem - General Mode of Arrival: Medic Information source: Patient, Relative - TRAVEL OUTSIDE OF THE [place] IN LAST 30 DAYS: No - HPI Patient complains to provider of: Short of breath Associated symptoms: Other - See above <CHEYENNE BROWN - Last Filed: 10/22/16 13:25> <EBENEZER NEAL - Last Filed: 10/22/16 16:05> - General Chief Complaint: Shortness Of Breath Stated Complaint: SHORTNESS OF BREATH Time Seen by Provider: 10/22/16 12:18 Notes: Patient is an 86 year old male, with a past medical history including heart attack and cardiac stents, who presents to the emergency department with his via EMS complaining of shortness of breath. Patient reports that he became short of breath 3 days ago and states it worsened today. Patient was discharged from the hospital 3 weeks ago after a blood transfusion and then marivel c. diff, and went to his follow up 2 weeks ago. Patient also complains of coughing, ankle swelling, and numbness in his toes. Patient denies chest pain, weight gain, nausea, vomiting, and diarrhea. Patient currently takes 3 20mg of Lasix a day. Patient has no history of blood clots. Patient is able to sleep while lying flat. (CHEYENNE BROWN) - Related Data Allergies/Adverse Reactions: digoxin [Digoxin] Allergy (Verified 09/26/16 20:40) felt bad procainamide HCl [From Procan SR] Allergy (Verified 09/26/16 20:40) ITCH, RASH ketamine Adverse Reaction (Verified 09/26/16 20:40) Past Medical History - General Information source: Patient - Social History Smoking Status: Former Smoker Frequency of alcohol use: None Drug Abuse: None Family History: Reviewed & Not Pertinent - Past Medical History Cardiac Medical History: Reports: Hx Congestive Heart Failure - Status post AICD implant, Hx Coronary Artery Disease - 4 stents; coronary arterial bypass graft., Hx Heart Attack - 1980, Hx Hypercholesterolemia, Hx Hypertension Pulmonary Medical History: Reports: Hx Pneumonia - hx Renal/ Medical History: Reports: Hx Benign Prostatic Hyperplasia Malignancy Medical History: Reports Hx Skin Cancer GI Medical History: Reports: Hx Gastroesophageal Reflux Disease Past Surgical History: Reports: Hx Cardiac Catheterization - stents x4/ pmaker, defib, Hx Coronary Stent, Hx Open Heart Surgery - STENTS X 4, Hx Pacemaker - AICD implant - Immunizations Hx Diphtheria, Pertussis, Tetanus Vaccination: Yes Hx Pneumococcal Vaccination: 05/05/15 <CHEYENNE BROWN - Last Filed: 10/22/16 13:25> Review of Systems - Review of Systems Constitutional: No symptoms reported EENT: No symptoms reported Cardiovascular: See HPI, Edema. denies: Chest pain Respiratory: See HPI, Cough, Short of breath Gastrointestinal: denies: Diarrhea, Nausea, Vomiting Genitourinary: No symptoms reported Male Genitourinary: No symptoms reported Musculoskeletal: No symptoms reported Skin: No symptoms reported Hematologic/Lymphatic: No symptoms reported Neurological/Psychological: See HPI, Numbness -: Yes All other systems reviewed and negative <CHEYENNE BROWN - Last Filed: 10/22/16 13:25> Physical Exam - Vital signs Interpretation: Normal - General General appearance: Appears well, Alert - HEENT Head: Normocephalic, Atraumatic - Respiratory Respiratory status: No respiratory distress Chest status: Nontender Breath sounds: Normal Chest palpation: Normal - Cardiovascular Rhythm: Regular Heart sounds: Normal auscultation Murmur: No - Abdominal Inspection: Normal Distension: No distension Bowel sounds: Normal Tenderness: Nontender Organomegaly: No organomegaly - Extremities General upper extremity: Normal inspection General lower extremity: Edema - 2+ pitting edema bilaterally - Neurological Neuro grossly intact: Yes Cognition: Normal Orientation: AAOx4 [place] Coma Scale Eye Opening: Spontaneous [place] Coma Scale Verbal: Oriented [place] Coma Scale Motor: Obeys Commands [place] Coma Scale Total: 15 Speech: Normal - Psychological Associated symptoms: Normal affect, Normal mood - Skin Skin Temperature: Warm Skin Moisture: Dry Skin Color: Normal <CHEYENNE BROWN - Last Filed: 10/22/16 13:25> Course - Laboratory Result Diagrams: 10/22/16 12:14 10/22/16 12:14 <CHEYENNE BROWN - Last Filed: 10/22/16 13:25> - Laboratory Result Diagrams: 10/22/16 12:14 10/22/16 12:14 <EBENEZER NEAL - Last Filed: 10/22/16 16:05> - Re-evaluation Re-evalutation: 10/22/16 13:00 Patient presents emergency department chief complaint difficulty breathing no. Patient has a history of CHF and is on 60 of Lasix a day. He was discharged from the hospital about 2 weeks ago reports he was anemic and required blood transfusion at that time. He then was sent home on antibiotics and return with C. difficile. He had an increased cough and shortness of breath for the past 2-3 days along with lower extremity edema. He has a history of [place] defibrillator pacemaker and 3 stents. Has not had a recent heart cath. Sees Dr. Santana approximately 2 months ago. On physical examination he is well- appearing nontoxic in no acute respiratory distress. He is 96% on 6 L. Heart rate and rhythm is regular without murmur gallop rub lungs are diminished mild crackles at the bases no expiratory wheeze. Abdomen is soft. Symmetrical 3+ lower extremity edema without calf tenderness swelling signs of DVT or cellulitis. EKG shows paced rhythm. Stat portable chest x-ray cardiac enzymes BNP further assessment 10/22/16 14:35 Patient reassessed at bedside no acute respiratory distress given 100 Lasix. He says that he wants to go home he does not want to stay in the hospital. Offered admission he declined that he would follow-up with his primary care physician on Monday. Told to double his dose of Lasix tomorrow begin weighing himself daily low salt intake and discussed reasons for ED return (EBENEZER NEAL) - Vital Signs Vital signs: Temp Pulse Resp BP Pulse Ox 97.8 F 60 14 143/62 H 96 10/22/16 15:01 10/22/16 12:24 10/22/16 15:01 10/22/16 15:01 10/22/16 14:00 - Laboratory Laboratory results interpreted by me: 10/22/16 10/22/16 10/22/16 12:14 12:14 12:14 WBC 14.8 H RBC 3.98 L Hgb 12.0 L Hct 36.8 L RDW 19.5 H Seg Neuts % (Manual) 89 H Lymphocytes % (Manual) 3 L Abs Neuts (Manual) 13.2 H BUN 23 H Creatinine 1.41 H Est GFR ( Amer) 58 L Est GFR (Non-Af Amer) 48 L Glucose 125 H Creatine Kinase 37 L NT-Pro-B Natriuret Pep 25747 H - EKG Interpretation by Me Additional EKG results interpreted by me: 10/22/16 13:03 EKG interpreted by myself as a paced rhythm (EBENEZER NEAL) Discharge <CHEYENNE BROWN Last Filed: 10/22/16 13:25> <EBENEZER NEAL - Last Filed: 10/22/16 16:05> - Discharge Clinical Impression: CHF exacerbation Qualifiers: Congestive heart failure type: unspecified congestive heart failure type Qualified Code(s): I50.9 - Heart failure, unspecified Condition: Stable Disposition: HOME, SELF-CARE Additional Instructions: Congestive Heart Failure You have been diagnosed as having congestive heart failure (CHF). CHF occurs when the heart is unable to pump blood efficiently, leading to fluid buildup in the veins and lungs. Typical symptoms are swelling of the legs, shortness of breath on minor exertion, and fatigue. CHF is treated with salt restriction, medicine to eliminate excess water and salt from the body, and medication to help the heart contract more efficiently. Eliminate added salt and salty foods in your diet. Decrease your activity until excess fluid has been eliminated. It will also be helpful to raise the head of your bed so you can sleep more easily. Keep a daily record of your weight. This will help your physician monitor your progress. Once extra water has been eliminated, light aerobic exercise daily -- such as walking -- will be helpful (unless your physician has told you to restrict activity for other reasons). Be sure to follow up with the physician as instructed. Contact the doctor at once if you worsen in any way. Referrals: JONO CASEY MD [Primary Care Provider] - (follow up in 1-2 days. double your dose of lasix tomorrow, weigh yourself daily return to er sooner for increasing worsening or new symptoms) Scribe Attestation: 10/22/16 13:02 I personally performed the services described in the documentation reviewed the documentation recorded by my scribe in my presence and it accurately and completely records my words and actions (EBENEZER NEAL) Scribe Documentation - Scribe Written by Juan:: juan Garcia, 10/22/16, [id number] acting as scribe for :: Jackson <CHEYENNE BROWN - Last Filed: 10/22/16 13:25>
[2016-10-22 13:07] LABS: BASOPHILS % (MANUAL) 0 % (0-2); EOSINOPHILS % (MANUAL) 0 % (0-6); LYMPHOCYTES % (MANUAL) 3 % (13-45); TOTAL CELLS COUNTED 100
[2016-10-22 13:08] LABS: ALANINE AMINOTRANSFERASE 32 U/L (21-72); ALBUMIN 3.6 g/dL (3.5-5.0); ALKALINE PHOSPHATASE 105 U/L (38-126); ANION GAP 15 (5-19); ASPARTATE AMINO TRANSFERASE 29 U/L (17-59); BILIRUBIN,DIRECT 0.4 mg/dL (0.0-0.4); BILIRUBIN,TOTAL 1.3 mg/dL (0.2-1.3); BLOOD UREA NITROGEN 23 mg/dL (7-20); CALCIUM 9.1 mg/dL (8.4-10.2); CARBON DIOXIDE 24 mmol/L (22-30); CHLORIDE 101 mmol/L (98-107); CREATINE KINASE 37 U/L (55-170); CREATININE RESULT 1.41 mg/dL (0.52-1.25); GLUCOSE 125 mg/dL (75-110); POTASSIUM 4.5 mmol/L (3.6-5.0); SODIUM 139.8 mmol/L (137-145); TOTAL PROTEIN 6.6 g/dL (6.3-8.2)
[2016-10-22 13:09] LABS: ANISOCYTOSIS SLIGHT; OVALOCYTES SLIGHT; POIKILOCYTOSIS SLIGHT
[2016-10-22] MEDS ORDERED: FUROSEMIDE INJ/PF 100 MG/10 ML SDV IV ONE (13:32)
[2016-10-22 13:35] LABS: CREATINE KINASE MB 0.66 ng/mL (<4.55); TROPONIN I < 0.012 ng/mL
[2016-10-22 14:08] LABS: APPEARANCE,URINE CLEAR; BILIRUBIN,URINE NEGATIVE (NEGATIVE); GLUCOSE, URINE NEGATIVE (NEGATIVE); KETONES,URINE NEGATIVE (NEGATIVE); LEUKOCYTE ESTERASE,URINE NEGATIVE (NEGATIVE); NITRITE,URINE NEGATIVE (NEGATIVE); PROTEIN,URINE NEGATIVE (NEGATIVE); URINE SPECIFIC GRAVITY 1.013; UROBILINOGEN,URINE NEGATIVE mg/dL (<2.0)
[2016-10-22 15:11] VITALS: BP 143/62
--- NOTE | 2016-10-22 17:47 | EKG REPORT ---
SEVERITY:- ABNORMAL ECG - ATRIAL-VENTRICULAR DUAL-PACED COMPLEXES : Confirmed by: Annamaria Santana MD 22-Oct-2016 17:45:57
== END 2016-10-22 15:15 | disposition home or self-care (01) ==
LOC: ER 11:52
DX: I11.0 Hypertensive heart disease with heart failure (principal); I50.9 Heart failure, unspecified; R60.0 Localized edema; I25.10 Atherosclerotic heart disease of native coronary artery without angina pectoris; I25.2 Old myocardial infarction; R06.02 Shortness of breath; R05 Cough; R20.0 Anesthesia of skin; Z98.61 Coronary angioplasty status; Z79.899 Other long term (current) drug therapy; Z88.8 Allergy status to other drugs, medicaments and biological substances; Z87.891 Personal history of nicotine dependence; Z95.810 Presence of automatic (implantable) cardiac defibrillator; Z85.828 Personal history of other malignant neoplasm of skin
CPT/HCPCS: 93005; 99285; 96374; 36415; 82553; 82550; 85025; 80053; 81001; 84484; 83880; 71010; 93010; J1940

== ENCOUNTER → 2016-10-25 | Outpatient (CLI) | payer MEDICARE, OTHER ==
[2016-10-25 11:22] LABS: HEMATOCRIT 35.3 % (37.9-51.0); HEMOGLOBIN 11.3 g/dL (13.5-17.0); HGB HCT DIFFERENCE -1.4; MEAN CORPUSCULAR HEMOGLOBIN 29.7 pg (27.0-33.4); MEAN CORPUSCULAR HGB CONC 32.1 g/dL (32.0-36.0); MEAN CORPUSCULAR VOLUME 93 fl (80-97); RED BLOOD COUNT 3.81 10^6/uL (4.35-5.55); WHITE BLOOD COUNT 15.8 10^3/uL (4.0-10.5)
[2016-10-25 11:38] LABS: ANION GAP 13 (5-19); BLOOD UREA NITROGEN 26 mg/dL (7-20); CALCIUM 8.6 mg/dL (8.4-10.2); CARBON DIOXIDE 24 mmol/L (22-30); CHLORIDE 101 mmol/L (98-107); CREATININE RESULT 1.49 mg/dL (0.52-1.25); GLUCOSE 150 mg/dL (75-110); POTASSIUM 3.4 mmol/L (3.6-5.0); SODIUM 137.6 mmol/L (137-145)
[2016-10-25 11:55] LABS: BAND NEUTROPHILS % (MANUAL) 2 % (3-5); BASOPHILS % (MANUAL) 0 % (0-2); EOSINOPHILS % (MANUAL) 1 % (0-6); LYMPHOCYTES % (MANUAL) 1 % (13-45); TOTAL CELLS COUNTED 100
[2016-10-25 11:58] LABS: TOXIC GRANULATION SLIGHT; TOXIC VACUOLATION PRESENT
[2016-10-25 11:59] LABS: ANISOCYTOSIS 2+; OVALOCYTES 1+; POIKILOCYTOSIS SLIGHT; TARGET CELLS SLIGHT
== END ==
LOC: OD 10:26
PROVIDERS: ATTEND Family Medicine
DX: I50.23 Acute on chronic systolic (congestive) heart failure (principal); D50.9 Iron deficiency anemia, unspecified; E11.9 Type 2 diabetes mellitus without complications
CPT/HCPCS: 36415; 80048; 82728; 83036; 83540; 83550; 83880; 85025

== ENCOUNTER → 2016-11-01 | Outpatient (CLI) | payer MEDICARE, OTHER ==
[2016-11-01 15:07] LABS: ABSOLUTE EOSINOPHILS # (AUTO) 0.1 10^3/uL (0.0-0.6); ABSOLUTE LYMPHOCYTES (AUTO) 0.6 10^3/uL (0.5-4.7); ABSOLUTE MONOCYTES (AUTO) 0.7 10^3/uL (0.1-1.4); ABSOLUTE NEUT (AUTO) 8.8 10^3/uL (1.7-8.2); BASOPHILS % (AUTO) 0.4 % (0-2); EOSINOPHILS % (AUTO) 0.7 % (0-6); HEMATOCRIT 37.9 % (37.9-51.0); HEMOGLOBIN 12.3 g/dL (13.5-17.0); LYMPHOCYTES % (AUTO) 6.1 % (13-45); MEAN CORPUSCULAR HEMOGLOBIN 29.5 pg (27.0-33.4); MEAN CORPUSCULAR HGB CONC 32.3 g/dL (32.0-36.0); MEAN CORPUSCULAR VOLUME 91 fl (80-97); MONOCYTES % (AUTO) 6.5 % (3-13); RED BLOOD COUNT 4.15 10^6/uL (4.35-5.55); RED CELL DISTRIBUTION WIDTH 18.4 % (11.5-14.0); SEGMENTED NEUTROPHILS % (AUTO) 86.3 % (42-78); WHITE BLOOD COUNT 10.2 10^3/uL (4.0-10.5)
== END ==
LOC: OD 13:58
PROVIDERS: ATTEND Specialist
DX: K92.2 Gastrointestinal hemorrhage, unspecified (principal); R19.7 Diarrhea, unspecified; R10.9 Unspecified abdominal pain
CPT/HCPCS: 36415; 82272; 85025; 87493

== ENCOUNTER 2016-11-04 10:19 | Inpatient (IN) | payer MEDICARE, OTHER ==
--- NOTE | 2016-11-04 10:25 | ER Document Report ---
ED Respiratory Problem - General Stated Complaint: DIFFICULTY BREATHING Time Seen by Provider: 11/04/16 10:21 Mode of Arrival: Stretcher Information source: Emergency Med Personnel TRAVEL OUTSIDE OF THE [place] IN LAST 30 DAYS: No - HPI Patient complains to provider of: CHF, Short of breath Onset: This morning Duration: Intermittent episodes Quality of pain: No pain Context: Hx CHF Short of Breath: Moderate Chest pain/discomfort: Tightness Cough: Nonproductive Associated symptoms: Cough, Difficulty breathing, Short of breath Similar symptoms previously: Yes Recently seen / treated by doctor: Yes Notes: Patient is an 86-year-old male with a history of CHF who presents to the emergency room via EMS on BiPAP with moderate respiratory distress and hypoxia noted at home, he reports difficulty breathing started this morning, denies chest pain, no fever - Related Data Allergies/Adverse Reactions: digoxin [Digoxin] Allergy (Mild, Verified 11/02/16 12:04) felt bad procainamide HCl [From Procan SR] Allergy (Mild, Verified 11/02/16 12:04) ITCH, RASH ketamine Adverse Reaction (Intermediate, Verified 11/02/16 12:04) Confusion Irritability Past Medical History - General Information source: Patient - Social History Smoking Status: Unknown if Ever Smoked Family History: Reviewed & Not Pertinent - Past Medical History Cardiac Medical History: Reports: Hx Congestive Heart Failure - Status post AICD implant, Hx Coronary Artery Disease - 4 stents; coronary arterial bypass graft., Hx Heart Attack - 1980, Hx Hypercholesterolemia, Hx Hypertension Denies: Hx DVT, Hx Pulmonary Embolism Pulmonary Medical History: Reports: Hx Pneumonia - hx Denies: Hx Asthma, Hx Bronchitis, Hx COPD, Hx Sleep Apnea, Hx Tuberculosis Neurological Medical History: Denies: Hx Cerebrovascular Accident, Hx Seizures Endocrine Medical History: Denies: Hx Diabetes Mellitus Type 1, Hx Diabetes Mellitus Type 2, Hx Hyperthyroidism, Hx Hypothyroidism Renal/ Medical History: Reports: Hx Benign Prostatic Hyperplasia. Denies: Hx Peritoneal Dialysis Malignancy Medical History: Reports Hx Skin Cancer GI Medical History: Reports: Hx Gastroesophageal Reflux Disease. Denies: Hx Cirrhosis, Hx Hepatitis, Hx Hiatal Hernia Musculoskeltal Medical History: Denies Hx Arthritis Psychiatric Medical History: Denies: Hx Depression Infectious Medical History: Denies: Hx Hepatitis, Hx MRSA Past Surgical History: Reports: Hx Cardiac Catheterization - stents x4/ pmaker, defib, Hx Coronary Stent, Hx Open Heart Surgery - STENTS X 4, Hx Pacemaker - AICD implant - Immunizations Hx Diphtheria, Pertussis, Tetanus Vaccination: Yes Hx Pneumococcal Vaccination: 05/05/15 Review of Systems - Review of Systems Constitutional: No symptoms reported EENT: No symptoms reported Cardiovascular: Dyspnea Respiratory: See HPI Gastrointestinal: No symptoms reported Genitourinary: No symptoms reported Male Genitourinary: No symptoms reported Musculoskeletal: No symptoms reported Skin: No symptoms reported Hematologic/Lymphatic: No symptoms reported Neurological/Psychological: No symptoms reported -: Yes All other systems reviewed and negative Physical Exam - Vital signs Vitals: Pulse Ox 98 11/04/16 10:20 Interpretation: Hypoxic - General General appearance: Alert In distress: Moderate - HEENT Head: Normocephalic, Atraumatic Eyes: Normal Conjunctiva: Normal Extraocular movements intact: Yes Eyelashes: Normal Pupils: PERRL - Respiratory Respiratory status: Respiratory distress, Labored, Tachypnea, Other - BiPAP Chest status: Nontender Breath sounds: Rales Chest palpation: Normal - Cardiovascular Rhythm: Regular Heart sounds: Normal auscultation Murmur: No - Abdominal Inspection: Normal Distension: No distension Bowel sounds: Normal Tenderness: Nontender Organomegaly: No organomegaly - Back Back: Normal - Extremities General upper extremity: Normal inspection General lower extremity: Edema - pitting - Neurological Neuro grossly intact: Yes Cognition: Normal Orientation: AAOx4 [place] Coma Scale Eye Opening: Spontaneous [place] Coma Scale Verbal: Oriented [place] Coma Scale Motor: Obeys Commands [place] Coma Scale Total: 15 - Skin Skin Temperature: Warm Skin Moisture: Dry Skin Color: Pale Course - Re-evaluation Re-evalutation: 11/04/16 11:52 Patient resting comfortably on BiPAP, appears to be doing much better, chest x- ray is consistent with right lower lobe pneumonia, antibiotics have been ordered , patient has significant leukocytosis with a white blood cell count of 31,000, he was diagnosed with C. difficile colitis back in September, however outpatient stool samples were sent on 530 and they were negative for C. difficile or blood at the time, patient was supposed to have a colonoscopy performed as an outpatient by Dr. Mckeon today regardless patient will be admitted to the hospitalist service for further evaluation and treatment patient has been discussed with [facility] who accepts patient for a full admission to the [facility] - Vital Signs Vital signs: Temp Pulse Resp BP Pulse Ox 99.0 F 21 H 146/56 H 95 11/04/16 10:28 11/04/16 11:48 11/04/16 11:01 11/04/16 11:48 - Laboratory Result Diagrams: 11/04/16 10:29 11/04/16 10:29 Laboratory results interpreted by me: 11/04/16 11/04/16 11/04/16 10:29 10:29 10:29 WBC 31.0 H* D RBC 4.23 L Hgb 12.7 L RDW 18.9 H Seg Neuts % (Manual) 94 H Band Neutrophils % 2 L Lymphocytes % (Manual) 0 L Abs Neuts (Manual) 29.8 H Abs Lymphs (Manual) 0.0 L Creatinine 1.29 H Est GFR (Non-Af Amer) 53 L Glucose 171 H Direct Bilirubin 0.5 H Creatine Kinase 51 L NT-Pro-B Natriuret Pep [id number] H - Diagnostic Test Radiology reviewed: Image reviewed, Reports reviewed - EKG Interpretation by Me Additional EKG results interpreted by me: 11/04/16 10:33 paced rhythm Critical Care Note - Critical Care Note Total time excluding time spent on procedures (mins): 45 Comments: Arrived in respiratory distress on BiPAP requiring immediate BiPAP in the emergency room, close observation, and admission to the IMCU Discharge - Discharge Clinical Impression: Systolic CHF, acute on chronic Acute respiratory failure Qualifiers: Respiratory failure complication: hypoxia Qualified Code(s): J96.01 - Acute respiratory failure with hypoxia Condition: Serious Disposition: ADMITTED INPATIENT Admitting Provider: Hospitalist Unit Admitted: IMCU Referrals: JONO CASEY MD [Primary Care Provider] - Follow up as needed
[2016-11-04 10:45] LABS: HEMATOCRIT 39.5 % (37.9-51.0); HEMOGLOBIN 12.7 g/dL (13.5-17.0); HGB HCT DIFFERENCE -1.4; MEAN CORPUSCULAR HEMOGLOBIN 30.1 pg (27.0-33.4); MEAN CORPUSCULAR HGB CONC 32.2 g/dL (32.0-36.0); MEAN CORPUSCULAR VOLUME 93 fl (80-97); RED BLOOD COUNT 4.23 10^6/uL (4.35-5.55); RED CELL DISTRIBUTION WIDTH 18.9 % (11.5-14.0)
[2016-11-04 11:02] LABS: BAND NEUTROPHILS % (MANUAL) 2 % (3-5); BASOPHILS % (MANUAL) 0 % (0-2); EOSINOPHILS % (MANUAL) 0 % (0-6); LYMPHOCYTES % (MANUAL) 0 % (13-45); TOTAL CELLS COUNTED 100
[2016-11-04 11:04] LABS: ALANINE AMINOTRANSFERASE 36 U/L (21-72); ALBUMIN 3.5 g/dL (3.5-5.0); ALKALINE PHOSPHATASE 95 U/L (38-126); ANION GAP 13 (5-19); ASPARTATE AMINO TRANSFERASE 35 U/L (17-59); BILIRUBIN,DIRECT 0.5 mg/dL (0.0-0.4); BILIRUBIN,TOTAL 1.2 mg/dL (0.2-1.3); BLOOD UREA NITROGEN 16 mg/dL (7-20); CARBON DIOXIDE 30 mmol/L (22-30); CHLORIDE 99 mmol/L (98-107); CREATINE KINASE 51 U/L (55-170); CREATININE RESULT 1.29 mg/dL (0.52-1.25); GLUCOSE 171 mg/dL (75-110); POTASSIUM 3.8 mmol/L (3.6-5.0); SODIUM 141.6 mmol/L (137-145); TOTAL PROTEIN 6.8 g/dL (6.3-8.2)
[2016-11-04 11:06] LABS: TOXIC GRANULATION SLIGHT
[2016-11-04 11:07] LABS: ANISOCYTOSIS 2+; OVALOCYTES SLIGHT; PLATELET CLUMPS PRESENT; POIKILOCYTOSIS 1+; TARGET CELLS SLIGHT
[2016-11-04 11:16] LABS: CREATINE KINASE MB 0.6 ng/mL (<4.55)
--- NOTE | 2016-11-04 11:25 | RADIOLOGY REPORT (SQ) ---
EXAM DESCRIPTION: CHEST SINGLE VIEW COMPLETED DATE/TIME: 11/04/2016 10:48 am REASON FOR STUDY: db COMPARISON: 10/22/2016 NUMBER OF VIEWS: One view. TECHNIQUE: Single frontal radiographic image of the chest acquired. LIMITATIONS: None. FINDINGS: LUNGS AND PLEURA: Chronic interstitial pattern. Focal airspace disease medial right lower lung. Lung volumes are low. No large effusions. MEDIASTINUM AND HEART: Stable heart size and mediastinal structures. SUPPORT DEVICES: Appropriate location without change. BONY STRUCTURES: No acute findings. HARDWARE: None. OTHER: No other significant finding. IMPRESSION: Right lower lobe pneumonia or aspiration. There is a background of chronic CHF.
[2016-11-04] MEDS ORDERED: CEFTRIAXONE RTU 1 GM/D5W 50 ML IV ONE (11:33)
[2016-11-04] MEDS ORDERED: AZITHROMYCIN INJ 500 MG VIAL IV ONE (11:33)
[2016-11-04 11:45] LABS: TROPONIN I 0.037 ng/mL
[2016-11-04 12:11] LABS: VENOUS BLOOD BASE EXCESS 5.3 mmol/L; VENOUS BLOOD PCO2 49.8 mmHg (35-63); VENOUS BLOOD PH 7.41 (7.30-7.42)
[2016-11-04] MEDS ORDERED: FUROSEMIDE INJ/PF 40 MG/4 ML SDV IV ONE (13:29)
[2016-11-04] MEDS: HEPARIN SOD (PORCINE) 5,000 UNIT/ML 1 ML SYRINGE SUBCUT SCH ×2 (15:34→22:46)
[2016-11-04 15:54] LABS: HEMATOCRIT 40.6 % (37.9-51.0); HEMOGLOBIN 13.2 g/dL (13.5-17.0); MEAN CORPUSCULAR HEMOGLOBIN 29.9 pg (27.0-33.4); MEAN CORPUSCULAR HGB CONC 32.4 g/dL (32.0-36.0); MEAN CORPUSCULAR VOLUME 93 fl (80-97); RED CELL DISTRIBUTION WIDTH 19.2 % (11.5-14.0)
[2016-11-04 16:18] LABS: WHITE BLOOD COUNT 38.4 10^3/uL (4.0-10.5)
[2016-11-04 16:24] LABS: ANION GAP 15 (5-19); BLOOD UREA NITROGEN 16 mg/dL (7-20); CALCIUM 8.9 mg/dL (8.4-10.2); CARBON DIOXIDE 29 mmol/L (22-30); CHLORIDE 97 mmol/L (98-107); CREATININE RESULT 1.28 mg/dL (0.52-1.25); GLUCOSE 188 mg/dL (75-110); POTASSIUM 3.4 mmol/L (3.6-5.0); SODIUM 140.5 mmol/L (137-145)
--- NOTE | 2016-11-04 17:06 | EKG REPORT ---
SEVERITY:- ABNORMAL ECG - VENTRICULAR-PACED RHYTHM : Confirmed by: Demetrius Flores 04-Nov-2016 17:05:43
[2016-11-04] MEDS ORDERED: POTASSIUM CHLORIDE 10 MEQ TABLET.SA PO ONE (17:13)
--- NOTE | 2016-11-04 17:13 | HISTORY AND PHYSICAL E ---
History and Physical NAME: STORM HERNDON : 1930 AGE: 86Y ADMITTED: 11/04/2016 ROOM: 303 CODE STATUS: FULL CODE. COMMERCIAL REAL ESTATE ASSISTANT: Dr. Santana PRIMARY CARE PROVIDER: Dr. Machado CHIEF COMPLAINT: Shortness of breath. HISTORY OF PRESENT ILLNESS: The patient is an 86-year-old male with a past medical history of severe cardiomyopathy that is well known to the hospitalist service. The patient presented to the emergency department due to shortness of breath. The patient was brought in via EMS with moderate respiratory distress and hypoxia noted at home. The patient stated that this was a sudden onset. He denied any chest pain. No fevers. Upon arrival the patient was placed on BiPAP and tachypnea improved. Patient's chest x-ray was suggestive of right lower lobe pneumonia as well as pulmonary vascular congestion. The patient was referred to the hospitalist for admission and management. The patient was to undergo endoscopy today with Dr. Mckeon given the patient's persistent diarrhea, however, the patient did not have this procedure given his status. The patient did have a recent outpatient workup including a C. diff that was done on 11/01/2016 which was found to be negative. Upon presentation today, the patient is found to have a white count of 30,000 although his white count on 11/01/2016 was only 10.2. Patient's BNP is elevated at 24,500. The patient who has underlying CKD with a baseline creatinine of about 1.5, today is 1.2 suggestive he might be volume up. On examination, the patient does appear to be resting relatively comfortably. He is on BiPAP. There was no family to help with the interview and the patient was unable to answer all questions fully, so history was obtained from previous and current medical records. At this time, the patient is afebrile. Blood pressure is in a decent range. The patient has been referred to the hospitalist for admission and management. PAST MEDICAL HISTORY: 1. Chronic systolic congestive heart failure with an EF of 20%. 2. Recurrent and persistent right lower lobe infiltrate. 3. Multiple admissions for acute respiratory failure. 4. Diabetes mellitus type 2. 5. Hypertension. 6. Hyperlipidemia. 7. Chronic kidney disease stage III. 8. Restless leg syndrome. 9. Anemia of chronic disease. 10. Coronary artery disease. 11. Previous [place]. 12. Hypothyroidism. 13. Benign prostatic hyperplasia. 14. History of skin cancer. 15. Gastroesophageal reflux disease. PAST SURGICAL HISTORY: 1. Coronary artery bypass grafting. 2. Coronary stent placement x4. 3. Pacemaker AICD placement. ALLERGIES: 1. DIGOXIN. 2. KETAMINE. 3. PROCAINAMIDE. HOME MEDICATIONS: 1. Allopurinol 100 mg p.o. q. hour sleep. 2. Amiodarone 200 mg p.o. q. hour sleep. 3. Aspirin 81 mg p.o. daily. 4. Lipitor 10 mg p.o. q. hour sleep. 5. Coreg 12.5 mg p.o. b.i.d. 6. Plavix 75 mg p.o. daily. 7. Proscar 5 mg p.o. daily. 8. Linzess 290 mcg p.o. q. a.m. 9. Cozaar 25 mg b.i.d. 10. Oxycodone 10 mg p.o. q.4 hours p.r.n. 11. Protonix 40 mg p.o. q. a.m. 12. Flomax 0.4 mg p.o. q. hour of sleep. SOCIAL HISTORY: The patient current resides at home with his with 6 children. He is a retired Marine. The patient denies any history of alcohol abuse. No history of tobacco use or illicit drug use. FAMILY MEDICAL HISTORY: Positive for coronary artery disease. REVIEW OF SYSTEMS: A full review of systems cannot be appreciated given the patient's mental status and BiPAP. PHYSICAL EXAMINATION: GENERAL: On examination, the patient is a frail, chronically ill appearing 86-year-old male who is awake, alert. He is oriented to person, place, time. Not fully oriented to situation. He is in mild respiratory distress. is regular with no murmur or rub. DIAGNOSTICS: Lab values are as follows: Hematology obtained on 11/04/2016: WBCs are 31.0, hemoglobin is 12.7, hematocrit is 39.5, platelet count is 268,000. VBG obtained on 11/04/2016: His pH is 7.41, pCO2 is 49.8, bicarb is 31.0. Chemistry obtained on 11/04/2016: Sodium is 141, potassium 3.8, chloride is 99, carbon dioxide 30, BUN 13, creatinine 1.29, glucose 171, calcium 9.0, bilirubin is 1.2, AST 35, ALT is 36, alk phos 95, CK 51, CK-MB is 0.60, troponin is 0.037, BNP is 24,500, total protein is 6.8, albumin 3.5. Microbiology: Blood cultures obtained on 11/04/2016 are pending. IMPRESSION AND PLAN: 1. Right lower lobe pneumonia. This has been a recurrent issue with the patient. Will consult speech therapy as well as will provide broad spectrum antibiotic coverage. Will also add Mucinex, pulmonary toilet, and follow. 2. Jykkp-gw-egmsbbl systolic congestive heart failure. Will diurese the patient and resume home medications. 3. Acute hypoxemic respiratory failure. Will transition to O2 by nasal cannula for a goal of greater than 92% given the patient's pCO2 is 50 on blood gas and pH is 7.41. 4. Chronic kidney disease stage III. The patient's baseline creatinine appears to be in the 1.5 range. Presenting creatinine is 1.2, further suggestive of the patient having excessive volumes. Will diurese the patient and repeat chemistries in the a.m. and follow. 5. Diabetes mellitus type 2. Will add sliding coverage and follow. 6. Early sepsis secondary to the above. The patient does have a significant white count. Will obtain stool studies, urinalysis, and culture and continue broad spectrum coverage. Currently await cultures and sensitivities. 7. Coronary artery disease. Will continue the patient's home medications. Discussed the case with the patient's 3d specialist. No further input at this time. 8. Gastroesophageal reflux disease. Will continue PPI therapy. 9. Hypertension. Blood pressures have been in a good range. Will cautiously resume home blood pressure medications. 10. Cardiomyopathy. Will resume patient's amiodarone. 11. Hyperlipidemia. Will continue statin. 12. Chronic constipation. Will continue home cathartics. DISPOSITION: The patient is a FULL CODE. Pending patient's symptomatology and diagnostic findings, will reevaluate as needed. The patient will be admitted to inpatient [facility] as the patient's expected length of stay will surpass 2 midnights. Time spent on this admission including assessment, plan, physical examination, patient education, and specialty collaboration is 50 minutes. DICTATING PHYSICIAN: SOLIS DESIR NP [id number] PHY#: [id number] ID: [id number] JOB#: [id number] ACCT: [id number] cc:MARISELA WAY M.D., MICHAEL LEARNING ENGINEER >
[2016-11-04] MEDS ORDERED: VANCOMYCIN HCL 0 MG in DEXTROSE 5%-WATER 250 ML IV NR (17:15)
[2016-11-04] MEDS: LACTOBACILLUS ACIDOPHILUS 250 MG TAB PO SCH (18:05)
[2016-11-04] MEDS: METRONIDAZOLE 500 MG TABLET PO SCH (18:05)
[2016-11-04] MEDS: PIPERACILLIN SODIUM/TAZOBACTAM 3.375 GM in NORMAL SALINE 100 ML IV SCH (18:07)
[2016-11-04 20:01] LABS: APPEARANCE,URINE CLEAR; BILIRUBIN,URINE NEGATIVE (NEGATIVE); GLUCOSE, URINE NEGATIVE (NEGATIVE); KETONES,URINE NEGATIVE (NEGATIVE); LEUKOCYTE ESTERASE,URINE NEGATIVE (NEGATIVE); NITRITE,URINE NEGATIVE (NEGATIVE); PROTEIN,URINE 30 mg/dL (NEGATIVE); URINE SPECIFIC GRAVITY 1.013; UROBILINOGEN,URINE NEGATIVE mg/dL (<2.0)
--- NOTE | 2016-11-04 22:37 | RADIOLOGY REPORT (SQ) ---
EXAM DESCRIPTION: CT ABD/PELVIS NO ORAL OR IV COMPLETED DATE/TIME: 11/04/2016 10:16 pm REASON FOR STUDY: Sepsis COMPARISON: Chest radiograph from 11/04/[address] abdomen from 09/15/2016. TECHNIQUE: CT scan of the abdomen and pelvis performed without intravenous or oral contrast. Images reviewed with lung, soft tissue, and bone windows. Reconstructed coronal and sagittal MPR images revi ewed. All images stored on PACS. All CT scanners at this facility use dose modulation, iterative reconstruction, and/or weight based d osing when appropriate to reduce radiation dose to as low as reasonably achievable (ALARA). [facility]: Dose Right [facility]: CareDose [facility]: Dose Right [facility]: Teradose 4D [facility]: DuraFizz RADIATION DOSE: 10.50mGy. LIMITATIONS: None. FINDINGS: LOWER CHEST: Interval increase in water now moderate bilateral pleural effusions, right gr eater than left, with associated compressive atelectasis. NON-CONTRASTED LIVER, SPLEEN, ADRENALS: Evaluation limited by lack of IV contrast. No identified sign ificant masses. PANCREAS: No masses. No peripancreatic inflammatory changes. GALLBLADDER: No identified stones by CT criteria. No inflammatory changes to suggest cholecystitis. RIGHT KIDNEY AND URETER: No suspicious masses. Assessment limited by lack of IV contrast. No signif icant calcifications. No hydronephrosis or hydroureter. LEFT KIDNEY AND URETER: No suspicious masses. Assessment limited by lack of IV contrast. No signifi cant calcifications. No hydronephrosis or hydroureter. AORTA AND RETROPERITONEUM: Dense atherosclerotic calcifications. No aneurysm. No retroperitoneal mas ses or adenopathy. BOWEL AND PERITONEAL CAVITY: Diffuse colonic wall thickening predominately affecting the descending a nd rectosigmoid colon. Small bowel loops are grossly normal. APPENDIX: Normal. PELVIS, BLADDER, AND ABDOMINAL WALL:No abnormal masses. No free fluid. Bladder decompressed with Fole y catheter. BONES: Stable degenerative change without fracture or suspicious osseous lesion. OTHER: No other significant finding. IMPRESSION: INTERVAL DEVELOPMENT OF DIFFUSE COLONIC WALL THICKENING PREDOMINATELY AFFECTING THE DESC ENDING AND RECTOSIGMOID COLON COMPATIBLE WITH INFECTIOUS OR INFLAMMATORY COLITIS. INTERVAL ENLARGEMENT OF BILATERAL PLEURAL EFFUSIONS ABOVE. TECHNICAL DOCUMENTATION: JOB ID: [id number] Quality ID # [id number]: Final reports with documentation of one or more dose reduction techniques (e.g., Au tomated exposure control, adjustment of the mA and/or kV according to patient size, use of iterative reconstruction technique) 2010 [employer]- All Rights Reserved
[2016-11-04] MEDS: TAMSULOSIN HCL 0.4 MG CAP.SR.24H PO SCH (22:44)
[2016-11-04] MEDS: CARVEDILOL 12.5 MG TABLET PO SCH (22:44)
[2016-11-04] MEDS: ATORVASTATIN CALCIUM 10 MG TABLET PO SCH (22:45)
[2016-11-04] MEDS: LOSARTAN POTASSIUM 25 MG TABLET PO SCH (22:45)
[2016-11-04] MEDS: AMIODARONE HCL 200 MG TABLET PO SCH (22:45)
[2016-11-04] MEDS: ALLOPURINOL 100 MG TABLET PO SCH (22:46)
[2016-11-04] MEDS: VANCOMYCIN HCL 1,250 MG in DEXTROSE 5%-WATER 250 ML IV SCH (22:47)
[2016-11-05] MEDS: PIPERACILLIN SODIUM/TAZOBACTAM 3.375 GM in NORMAL SALINE 100 ML IV SCH ×4 (01:37→18:00)
[2016-11-05] MEDS: VANCOMYCIN HCL INJ 500 MG VIAL ONE (01:38)
[2016-11-05] MEDS: METRONIDAZOLE 500 MG TABLET PO SCH ×2 (01:38→06:00)
[2016-11-05] MEDS ORDERED: VANCOMYCIN HCL INJ 500 MG VIAL PO PRN (01:49)
[2016-11-05] MEDS ORDERED: VANCOMYCIN HCL INJ 500 MG VIAL PO ONE (02:00)
[2016-11-05 05:29] LABS: ANION GAP 15 (5-19); BLOOD UREA NITROGEN 20 mg/dL (7-20); CALCIUM 8.4 mg/dL (8.4-10.2); CARBON DIOXIDE 26 mmol/L (22-30); CHLORIDE 100 mmol/L (98-107); CREATININE RESULT 1.27 mg/dL (0.52-1.25); GLUCOSE 182 mg/dL (75-110); MAGNESIUM 1.8 mg/dL (1.6-2.3); SODIUM 140.7 mmol/L (137-145)
[2016-11-05 05:36] LABS: POTASSIUM 2.9 mmol/L (3.6-5.0)
[2016-11-05 05:40] LABS: HEMATOCRIT 37.2 % (37.9-51.0); HEMOGLOBIN 11.9 g/dL (13.5-17.0); HGB HCT DIFFERENCE -1.5; MEAN CORPUSCULAR HEMOGLOBIN 29.5 pg (27.0-33.4); MEAN CORPUSCULAR VOLUME 92 fl (80-97); RED BLOOD COUNT 4.02 10^6/uL (4.35-5.55)
[2016-11-05] MEDS ORDERED: VANCOMYCIN HCL INJ 500 MG VIAL PO SCH (06:00)
[2016-11-05] MEDS: HEPARIN SOD (PORCINE) 5,000 UNIT/ML 1 ML SYRINGE SUBCUT SCH ×3 (06:01→22:37)
[2016-11-05] MEDS ORDERED: POTASSI CL 20 MEQ/NS 1L 1,000 ML IV ONE (06:07)
[2016-11-05] MEDS ORDERED: POTASSI CL 20 MEQ/50 ML RIDER 20 MEQ/50 ML RTUPB IV ONE (06:22)
[2016-11-05] MEDS ORDERED: POTASSI CL 20 MEQ/NS 1L 1000 ML IV PRN (06:24)
[2016-11-05] MEDS: POTASSIUM CHLORIDE 20 MEQ/50 ML RTU IV SCH ×3 (06:25→10:34)
[2016-11-05 07:00] LABS: WHITE BLOOD COUNT 39.4 10^3/uL (4.0-10.5)
[2016-11-05] MEDS: LANSOPRAZOLE 30 MG TAB.RAP.DR PO SCH (08:16)
--- NOTE | 2016-11-05 08:55 | Progress Note ---
Provider Note Provider Note: November 05, 2016, 12:10 AM: Patient resting quietly, slightly drowsy but awake. Abdomen soft slightly distended, completely nontender to palpation.
[2016-11-05] MEDS: CLOPIDOGREL BISULFATE 75 MG TABLET PO SCH (09:34)
[2016-11-05] MEDS: LACTOBACILLUS ACIDOPHILUS 250 MG TAB PO SCH ×2 (09:34→18:00)
[2016-11-05] MEDS: FINASTERIDE 5 MG TABLET PO SCH (09:35)
[2016-11-05] MEDS: CARVEDILOL 12.5 MG TABLET PO SCH ×2 (09:35→22:36)
[2016-11-05] MEDS: LOSARTAN POTASSIUM 25 MG TABLET PO SCH ×2 (09:35→22:36)
[2016-11-05] MEDS: ASPIRIN 81 MG TABLET, CHEWABLE PO SCH (09:35)
[2016-11-05] MEDS ORDERED: FUROSEMIDE INJ/PF 40 MG/4 ML SDV IV ONE (14:04)
[2016-11-05] MEDS: VANCOMYCIN HCL INJ 500 MG VIAL PO SCH ×3 (14:17→23:17)
[2016-11-05 14:45] LABS: ANION GAP 9 (5-19); BLOOD UREA NITROGEN 24 mg/dL (7-20); CALCIUM 8.1 mg/dL (8.4-10.2); CARBON DIOXIDE 28 mmol/L (22-30); CHLORIDE 104 mmol/L (98-107); CREATININE RESULT 1.43 mg/dL (0.52-1.25); GLUCOSE 153 mg/dL (75-110); POTASSIUM 3.7 mmol/L (3.6-5.0); SODIUM 141.1 mmol/L (137-145)
[2016-11-05] MEDS: AMIODARONE HCL 200 MG TABLET PO SCH (22:36)
[2016-11-05] MEDS: ATORVASTATIN CALCIUM 10 MG TABLET PO SCH (22:36)
[2016-11-05] MEDS: ALLOPURINOL 100 MG TABLET PO SCH (22:36)
[2016-11-05] MEDS: TAMSULOSIN HCL 0.4 MG CAP.SR.24H PO SCH (22:36)
[2016-11-05] MEDS: VANCOMYCIN HCL 1,250 MG in DEXTROSE 5%-WATER 250 ML IV SCH (22:37)
[2016-11-06] MEDS: PIPERACILLIN SODIUM/TAZOBACTAM 3.375 GM in NORMAL SALINE 100 ML IV SCH ×2 (00:59→06:13)
[2016-11-06 05:21] LABS: HEMATOCRIT 35.8 % (37.9-51.0); HEMOGLOBIN 11.6 g/dL (13.5-17.0); MEAN CORPUSCULAR HEMOGLOBIN 30.2 pg (27.0-33.4); MEAN CORPUSCULAR HGB CONC 32.3 g/dL (32.0-36.0); MEAN CORPUSCULAR VOLUME 93 fl (80-97); RED BLOOD COUNT 3.83 10^6/uL (4.35-5.55); RED CELL DISTRIBUTION WIDTH 18.9 % (11.5-14.0)
[2016-11-06 05:34] LABS: WHITE BLOOD COUNT 34.4 10^3/uL (4.0-10.5)
[2016-11-06 05:40] LABS: ANION GAP 13 (5-19); BLOOD UREA NITROGEN 28 mg/dL (7-20); CARBON DIOXIDE 23 mmol/L (22-30); CHLORIDE 103 mmol/L (98-107); CREATININE RESULT 1.46 mg/dL (0.52-1.25); GLUCOSE 168 mg/dL (75-110); MAGNESIUM 1.9 mg/dL (1.6-2.3); POTASSIUM 3.1 mmol/L (3.6-5.0); SODIUM 139.2 mmol/L (137-145)
[2016-11-06] MEDS: HEPARIN SOD (PORCINE) 5,000 UNIT/ML 1 ML SYRINGE SUBCUT SCH ×2 (06:13→13:29)
[2016-11-06] MEDS: VANCOMYCIN HCL INJ 500 MG VIAL PO SCH ×3 (06:17→18:31)
[2016-11-06] MEDS: CLOPIDOGREL BISULFATE 75 MG TABLET PO SCH (09:08)
[2016-11-06] MEDS: LACTOBACILLUS ACIDOPHILUS 250 MG TAB PO SCH ×2 (09:08→18:32)
[2016-11-06] MEDS: LANSOPRAZOLE 30 MG TAB.RAP.DR PO SCH (09:08)
[2016-11-06] MEDS: CARVEDILOL 12.5 MG TABLET PO SCH (09:08)
[2016-11-06] MEDS: LOSARTAN POTASSIUM 25 MG TABLET PO SCH (09:08)
[2016-11-06] MEDS: ASPIRIN 81 MG TABLET, CHEWABLE PO SCH (09:09)
[2016-11-06] MEDS: FINASTERIDE 5 MG TABLET PO SCH (09:09)
[2016-11-06] MEDS: OXYCODONE HCL IR 5 MG TABLET PO PRN ×2 (10:33→20:38)
[2016-11-06] MEDS ORDERED: HYOSCYAMINE SULFATE 0.125 MG TABLET PO PRN (10:48)
[2016-11-06] MEDS: POTASSI CL 20 MEQ/NS 1L 1,000 ML IV PRN (11:53)
[2016-11-06] MEDS: POTASSI CL 20 MEQ/50 ML RIDER 20 MEQ/50 ML RTUPB IV SCH ×2 (11:54→13:29)
--- NOTE | 2016-11-06 15:18 | PROGRESS NOTE E ---
Progress Note NAME: STORM HERNDON : 1930 AGE: 86Y DATE: 11/06/2016 ROOM: 303 SUBJECTIVE: The patient is lying in bed. He does appear more comfortable than yesterday. The patient's is present at the bedside and active in the patient's care and feels that he is more comfortable than the day before. The patient has had no reported episodes of vomiting. His diarrhea has persisted. The patient does admit to some intermittent abdominal cramps, but overall denies any other symptoms of dizziness, chest pain. He has not felt febrile. No chills. The patient has been afebrile and his blood pressures are in a good range. The patient does not voice any concerns at this time. Once again discussed with the , who asked if the patient "was going to make it." This is essentially the same conversation that I had yesterday. I have explained to both the patient and the family that globally, the patient does have chronic illness with multiple comorbidities and that an infectious process such as C. diff is quite difficult to treat effectively, but especially when the patient has had a partial incomplete treatment in the past. Once again, the patient had been discharged on oral vancomycin for C. diff. However, therapy was not completed given that the patient did not want to take the medication. I have discussed palliative care consultation; however, this was dismissed. The patient states that he wants to go home and I have explained that for curative management, he would ideally need to stay inpatient. No other concerns are voiced at this time. REVIEW OF SYSTEMS: The rest of the review of systems are negative. MEDICATIONS: Medications have been reviewed. OBJECTIVE: GENERAL: The patient is a frail, chronically ill-appearing 86-year-old male who will awaken. He is alert and oriented more so than yesterday. He is delayed. He does not appear to be in any acute distress. VITAL SIGNS: Temperature is 97.1, pulse is 60, respirations 20, blood pressure is 120/43, oxygen saturation is 99% on 4 L nasal cannula. SKIN: Pale. Dry. No rash. He is not diaphoretic. HEENT: Pupils equal and reactive. Conjunctivae are pale. NECK: No evidence of JVD. CARDIOVASCULAR SYSTEM: Heart is regular. There is no rub. CHEST: Diminished. ABDOMEN: Distended. No area of focal tenderness. Bowel sounds are present. BACK: No CVA tenderness or sacral edema. EXTREMITIES: No clubbing, cyanosis, or edema. PSYCHIATRIC: Flat affect. Depressed mood. DIAGNOSTIC DATA: Lab values are as follows: Hematology obtained on 11/06/2016: WBC's are 34.4; hemoglobin is 11.6; hematocrit is 35.8; platelet count is 192,000. Chemistries obtained on 11/06/2016: Sodium is 139, potassium 4.1, chloride is 103, carbon dioxide 23, BUN 28, creatinine is 1.46, glucose 168, calcium is 8.0, magnesium is 1.9. Microbiology: Blood cultures obtained on 11/05/2016 are pending. IMPRESSION AND PLAN: 1. C. DIFF COLITIS. THE PATIENT SIGNIFICANT COLITIS ON CT. THE PATIENT DID NOT COMPLETE PRIOR TREATMENT FOR C. DIFF FURTHER SETTING US UP FOR A CASE OF RESISTANCE. Patient is maximized on oral vancomycin, have also added probiotic therapy and have encouraged compliance. 2. SEPSIS, SECONDARY TO #1. THE PATIENT'S WHITE COUNT IS STILL SIGNIFICANTLY ELEVATED; HOWEVER, HE IS NO LONGER FEBRILE AND DOES CLINICALLY APPEAR IMPROVED. I have expressed the urgency of his current clinical situation. 3. ACUTE ON CHRONIC SYSTOLIC CONGESTIVE HEART FAILURE. THE PATIENT RESPONDED WELL TO DIURESIS. Have resumed home medications. For the most part, he is optivolemic. 4. ACUTE ON CHRONIC HYPOXEMIC RESPIRATORY FAILURE. The patient was transitioned to nasal cannula without issues and is doing well. Will attempt to maintain a sat of 88-92% and patient is no longer requiring BiPAP. 5. CHRONIC KIDNEY DISEASE, STAGE 3. THE PATIENT'S CREATININE IS NOW 1.5, WHICH IS HIS BASELINE, FURTHER SUGGESTING THAT HE WAS VOLUME UP WHEN HE CAME IN. 6. DIABETES MELLITUS TYPE 2. Will continue sliding-scale coverage. 7. CORONARY ARTERY DISEASE. Will continue the patient's home medications. Dr. Santana is his manager sas. 8. GASTROESOPHAGEAL REFLUX DISEASE. Have discontinued PPI therapy given the patient's C. diff. 9. HYPERTENSION. BLOOD PRESSURE HAS BEEN IN A GOOD RANGE. Will continue current medications. 10. CARDIOMYOPATHY. The patient does have an AICD, is on amiodarone. 11. HYPERLIPIDEMIA. Will continue statin. 12. CHRONIC CONSTIPATION. Will hold home cathartics for now given the patient's diarrhea. 13. POSSIBLE RIGHT LOWER LOBE PNEUMONIA. Will repeat chest x-ray. Have Speech Therapy to evaluate. Transition antibiotic coverage to imipenem to cover anaerobes. 14. GRAM-POSITIVE COCCI. Repeat blood cultures are pending. If repeat set is negative, will discontinue IV vancomycin. DISPOSITION: The patient is a FULL CODE. Pending patient's symptomatology and diagnostic findings, will reevaluate in the a.m. TIME: Time spent on this followup including assessment, plan, physical examination, patient education, and family meeting is 25 minutes. DICTATING PHYSICIAN: SOLIS DESIR NP [id number] PHY#: [id number] ID: [id number] JOB#: [id number] ACCT: [id number] cc: >
--- NOTE | 2016-11-06 17:51 | RADIOLOGY REPORT (SQ) ---
EXAM DESCRIPTION: CHEST SINGLE VIEW COMPLETED DATE/TIME: 11/06/2016 4:54 pm REASON FOR STUDY: FU RLL ?PNA COMPARISON: 11/04/2016. FINDINGS: Single-view chest AP portable upright at approximately 1627 hours. Slight worsening of basilar aeration, diffuse haziness. Small effusions, progressive. Presumably re lated to worsening pulmonary edema. Stable cardiomediastinal silhouette. Pacer remains intact, leads as before. IMPRESSION: Suspect worsening pulmonary edema. TECHNICAL DOCUMENTATION: JOB ID: [id number]
[2016-11-06] MEDS ORDERED: IMIPENEM/CILASTATIN SODIUM 1,000 MG in NORMAL SALINE 250 ML IV SCH (18:00)
[2016-11-06] MEDS: IMIPENEM/CILASTATIN SODIUM 500 MG in NORMAL SALINE 100 ML IV SCH (18:31)
[2016-11-07] MEDS: VANCOMYCIN HCL INJ 500 MG VIAL PO SCH ×4 (01:15→17:01)
[2016-11-07] MEDS: CARVEDILOL 12.5 MG TABLET PO SCH ×3 (01:23→21:44)
[2016-11-07] MEDS: LOSARTAN POTASSIUM 25 MG TABLET PO SCH ×3 (01:23→21:44)
[2016-11-07] MEDS: ATORVASTATIN CALCIUM 10 MG TABLET PO SCH ×2 (01:23→21:44)
[2016-11-07] MEDS: AMIODARONE HCL 200 MG TABLET PO SCH ×2 (01:23→21:44)
[2016-11-07] MEDS: ALLOPURINOL 100 MG TABLET PO SCH ×2 (01:23→21:44)
[2016-11-07] MEDS: HEPARIN SOD (PORCINE) 5,000 UNIT/ML 1 ML SYRINGE SUBCUT SCH ×4 (01:23→21:45)
[2016-11-07] MEDS: TAMSULOSIN HCL 0.4 MG CAP.SR.24H PO SCH ×2 (01:23→21:44)
[2016-11-07] MEDS: IMIPENEM/CILASTATIN SODIUM 500 MG in NORMAL SALINE 100 ML IV SCH ×3 (01:43→17:01)
[2016-11-07] MEDS: VANCOMYCIN HCL 1,250 MG in DEXTROSE 5%-WATER 250 ML IV SCH ×2 (02:38→21:57)
[2016-11-07 07:25] LABS: HEMATOCRIT 39.4 % (37.9-51.0); HEMOGLOBIN 12.6 g/dL (13.5-17.0); HGB HCT DIFFERENCE -1.6; MEAN CORPUSCULAR HEMOGLOBIN 29.7 pg (27.0-33.4); MEAN CORPUSCULAR HGB CONC 31.9 g/dL (32.0-36.0); MEAN CORPUSCULAR VOLUME 93 fl (80-97); RED BLOOD COUNT 4.23 10^6/uL (4.35-5.55); RED CELL DISTRIBUTION WIDTH 19.2 % (11.5-14.0); WHITE BLOOD COUNT 24.4 10^3/uL (4.0-10.5)
[2016-11-07 07:44] LABS: ANION GAP 10 (5-19); BLOOD UREA NITROGEN 29 mg/dL (7-20); CALCIUM 8.2 mg/dL (8.4-10.2); CARBON DIOXIDE 23 mmol/L (22-30); CHLORIDE 104 mmol/L (98-107); CREATININE RESULT 1.35 mg/dL (0.52-1.25); GLUCOSE 144 mg/dL (75-110); POTASSIUM 3.7 mmol/L (3.6-5.0); SODIUM 137.2 mmol/L (137-145)
[2016-11-07 08:15] LABS: BASOPHILS % (MANUAL) 0 % (0-2); EOSINOPHILS % (MANUAL) 2 % (0-6); LYMPHOCYTES % (MANUAL) 3 % (13-45); TOTAL CELLS COUNTED 100
[2016-11-07 08:17] LABS: ANISOCYTOSIS 2+; BURR CELLS 1+; POIKILOCYTOSIS 1+; TOXIC GRANULATION SLIGHT
[2016-11-07] MEDS: FINASTERIDE 5 MG TABLET PO SCH (09:36)
[2016-11-07] MEDS: LANSOPRAZOLE 30 MG TAB.RAP.DR PO SCH (09:36)
[2016-11-07] MEDS: ASPIRIN 81 MG TABLET, CHEWABLE PO SCH (09:37)
[2016-11-07] MEDS: CLOPIDOGREL BISULFATE 75 MG TABLET PO SCH (09:37)
[2016-11-07] MEDS: LACTOBACILLUS ACIDOPHILUS 250 MG TAB PO SCH ×2 (09:37→17:01)
[2016-11-07] MEDS: OXYCODONE HCL IR 5 MG TABLET PO PRN (11:24)
[2016-11-07] MEDS: POTASSI CL 20 MEQ/NS 1L 1,000 ML IV PRN (17:04)
[2016-11-07 18:08] LABS: PATH REVIEW PATHOLOGIST REVIEWED
--- NOTE | 2016-11-07 18:08 | PROGRESS NOTE E ---
Progress Note NAME: STORM HERNDON : 1930 AGE: 86Y DATE: 11/07/2016 ROOM: 303 SUBJECTIVE: The patient is currently lying in bed. is present at the bedside, active in the patient's care. The patient has been difficult to obtain IV access. He finally has a #20 in his left AC. However, the patient has refused anymore sticks and actually refused to be stuck overnight, which delayed antibiotic treatment. The patient's stated that she did not care about the patient's wishes that she wanted any medical treatment done that needed to be done. It was explained to her that the he had the right to refuse. The patient states that he would not go home and is "quite tired of this place." However, he does not want to be effectively treated. The patient has been afebrile. His blood pressures have been in the good range. The patient was seen by speech therapy and there is a suspicion for aspiration. The patient has been scheduled for a modified and further recommendations as per those findings. The patient does present with a clinical picture of aspiration given the recurrent right lobular pneumonia. BRIEF HISTORY: The patient is an 86-year-old male, who is well-known to the hospitalist service with severe cardiomyopathy, AICD and recent C. diff. The patient was on our service sometime back and was discharged with oral vancomycin. The patient took a few doses, but did not complete and subsequently returned with extremely high white count, fever, general illness, picture of sepsis due to C. diff, also findings on chest x-ray consistent with right middle lower lobe pneumonia. The patient was also noted to be in heart failure and was diuresed. REVIEW OF SYSTEMS: The rest of the review of systems is negative. MEDICATIONS: Medications have been reviewed. OBJECTIVE: The patient is an 86-year-old male, who is awake and alert. He is oriented to person, place, time, and situation. He is hard of hearing. He does not appear to be in any acute distress. VITAL SIGNS: Temperature is 97.7, pulse 61, respirations 20, blood pressure 127/67, oxygen saturation is 99% on 4 liters nasal cannula. SKIN: Warm and dry. He is pale, not diaphoretic. HEENT: Pupils equal, round and reactive to light and accommodation. Conjunctivae are pink. No JVP. CARDIOVASCULAR: Heart is regular. No rub. CHEST: The patient does have bilateral basal crackles with symmetrical, mildly labored. ABDOMEN: Soft, nontender, nondistended, softer than the day before. Bowel sounds are present. BACK: No CVA tenderness or sacral edema. EXTREMITIES: No clubbing, cyanosis, or edema. PSYCHIATRIC: Depressed affect and mood. DIAGNOSTICS: Lab values are as follows. Hematology obtained on 11/07/2016: WBCs are 24.4, hemoglobin is 12.6, hematocrit is 39.4, platelet count is 216,000. Chemistry obtained on 11/07/2016: Sodium is 137, potassium 3.7, chloride is 104, carbon dioxide 23, BUN 29, creatinine is 0.35, glucose 144, calcium is 8.2, magnesium is 3.0. Microbiology: Blood culture obtained on 11/05/2016 revealed no growth. Sputum culture obtained on 11/06/2016 is still pending. Chest x-ray obtained on 11/06/2016 reveals some pulmonary edema. IMPRESSION AND PLAN: 1. CLOSTRIDIUM DIFFICILE COLITIS. The patient had significant, it is improving. White count is moving in the right direction. We will continue maximize dose of oral vancomycin given he has only partial treatment earlier with this. Continue probiotic therapy and I have encouraged compliance. 2. SEPSIS SECONDARY TO #1. White count is still significantly elevated. He is afebrile and does clinically appear improved. 3. RIGHT LOWER LOBE PNEUMONIA. I have suspicion for aspiration. The patient has had recurrence of bouts of this. Speech therapy is also questioning this. The patient is to undergo modified. We will continue antibiotic coverage. The patient has expressed that he does not want a feeding tube should that be the next step. 4. [id number] SYSTOLIC CONGESTIVE HEART FAILURE. The patient responded well with diuresis and resume his home medications. For the most part, he is euvolemic. This is as good as we are going to get him. 5. [id number] HYPOXEMIC RESPIRATORY FAILURE. The patient has been transitioned to nasal cannula, doing well. We will maintain a sat of 88 to 90%, no longer requiring BiPAP. 6. CHRONIC KIDNEY DISEASE, STAGE 3. The patient's creatinine is now 1.5, which is basically his baseline. He was deluded when he came in because his volume up. 7. DIABETES MELLITUS TYPE 2. Continue sliding scale coverage. 8. CORONARY ARTERY DISEASE. We will continue the patient's home medications. Dr. Poole marina sales and service supervisor. 9. GASTROESOPHAGEAL REFLUX DISEASE. I discontinued PPI therapy given the patient's C. diff. 10. HYPERTENSION. Blood pressures have been in an acceptable range. Continue current medications. 11. CARDIOMYOPATHY. The patient has AICD, is on amiodarone. 12. HYPERLIPIDEMIA. Continue statins. 13. CHRONIC CONSTIPATION. We will hold home cathartics given his intermittent diarrhea. 14. STAPHYLOCOCCUS HOMINIS BACTEREMIA. This is positive in 1 full set. Repeat culture were negative. We will continue IV vancomycin for now. DISPOSITION: The patient is a FULL CODE. Pending patient's symptomatology and diagnostic findings, will re-evaluate in the a.m. We will consult palliative management given the patient's multiple comorbidities and multiple hospitalizations and the patient's desire to stay out of the hospital. I did have discussion with the patient and his regarding the potential for aspiration, did educate them on the treatment for aspiration pneumonia often called this C. diff colitis and the antibiotics with anaerobe gram negative coverage are notorious for C. diff. I explained to them that this is a cycle that can be very difficult to break. Time spent on this followup including assessment, plan, physical examination, patient education, and family meeting is 35 minutes. DICTATING PHYSICIAN: SOLIS DESIR NP [id number] BIENVENIDOY#: [id number] ID: [id number] JOB#: [id number] ACCT: [id number] cc: > MTDD
[2016-11-08] MEDS: VANCOMYCIN HCL INJ 500 MG VIAL PO SCH ×5 (00:44→23:46)
[2016-11-08] MEDS: OXYCODONE HCL IR 5 MG TABLET PO PRN ×2 (00:47→15:37)
[2016-11-08] MEDS: IMIPENEM/CILASTATIN SODIUM 500 MG in NORMAL SALINE 100 ML IV SCH ×3 (02:28→18:36)
[2016-11-08] MEDS: HEPARIN SOD (PORCINE) 5,000 UNIT/ML 1 ML SYRINGE SUBCUT SCH ×3 (06:41→22:09)
--- NOTE | 2016-11-08 09:03 | ST Inp Modified Barium Swallow ---
Medical Diagnosis - Medical Diagnoses Medical Diagnosis Description & ICD-10 Code(s): s/s of aspiration - ICD-10 Tx Diagnosis Coding (1) Dysphagia, pharyngeal phase ICD-10 Code(s): R13.13 - DYSPHAGIA, PHARYNGEAL PHASE ST Inpatient MBS - General Date: 11/08/16 Date of Onset: 11/04/16 - History History Obtained From: Patient - per EMR -: Medical - per EMR; CHF exacerbation, respiratory distress, CHF, CKD stage 3, early sepsis, CAD, GERD, chronic constipation, CDIFF. chest xray suspect worsening pulmonary edema, bilateral pleural effusions. PMHx: severe cardiomyopathy, recurrent lower lobe infiltrate, diabetes, HTN, HLD, CKD, NV, hx of skin CA, GERD. MBSS completed due to s/sx of aspiration at bedside. Medications: Medications Reviewed Allergies: Refer to medical record - Subjective Current Nutritional Means: PO Current Symptoms: Poor intake, Coughing, Pneumonia Pain: 2/5 - abdominal pain - Objective Assessment: Upright, Left Lateral - Food Trials Food Trials Used: Thin liquids, Pureed, Soft solids The Patient: fed by ST - Assessment Labial Function: Impaired - impaired ROM, decreased labial seal Lingual Function: Within Functional Limits Mandibular Function: Within Functional Limits Dentition: Partial Velo-Pharyngeal Function: Unremarkable Laryngeal Function: Volitional Cough, Volitional Swallow - Pharyngeal Stage Initiation of Pharyngeal Stage: Normal Decreased Laryngeal Elevation: Yes - mild Reduced Velo-Pharyngeal Closure: no Reduced Pressure Generation: No Reduced Tongue Base Retraction: Yes - mild Pre-Swallowing Pooling in Valleculae: None Pre-Swallowing Pooling in Pyriforms: None Reduced Thyro-Hyiod Approximation: No Reduced Epiglottic Excursion: No Reduced Pharyngeal Peristalsis: No Post Swallow Residuals in Valleculae: Mild - on thin, puree and soft solids Post Swallow Residuals in Pyriforms: Mild - on thin - Impression/Summary Laryngeal Penetration: Yes, Flash - x1 on large sequential swallow of thin Tracheal Aspiration: no Patient Presents With: Pharyngeal stage dysph. Risk of Aspiration: Moderate - mild-moderate Risk of Nutritional Compromise: Moderate - reports reduced PO intake - Recommendations NPO: no Solid Diet Recommendations: Mechanical Soft, Ground Meat Liquid Diet Recommendations: Thin Strict Aspitarion Precautions: Yes Recommended Techniques: Fully Upright During Meal, Dry Swallow After Bite - of solids and swallows of liquids, Small Bites and Sips Supervision: requires assistance Other Recommendations: 1) DIET: recommend mechanical soft ground meats due to fatigue. 2) STRATEGIES: aspiration precautions, dry swallow after solids and liquids, small bites and sips. SUMMARY: Pt presents with mild-moderate pharyngeal dysphagia characterized by mildly reduced base of tongue and laryngeal elevation resulting in residuals in the valleculae and pyriforms which were observed to clear with dry swallow. Pt was observed to cough x1 during study; however no instance of penetration of aspiration observed during event. Due to pt's observed increased fatigue and current medical status pt is at risk of aspiration. Feed pt only when awake alert and accepting. ST contacted MD regarding results and recommendations. MD in agreement with diet advancement and provided telephone order for diet change. - Time Total Time: 25 Total Timed Minutes: 0 ST F.L. Impairment Category - Rationale Based On Rationale Based On: Clin Find., Obj Measures - Swallowing Current G8996: CJ 20-39% Impaired Goal G8997: CJ 20-39% Impaired Discharge G8998: CJ 20-39% Impaired
[2016-11-08] MEDS: LANSOPRAZOLE 30 MG TAB.RAP.DR PO SCH (09:06)
[2016-11-08] MEDS: LACTOBACILLUS ACIDOPHILUS 250 MG TAB PO SCH ×2 (09:39→18:36)
[2016-11-08] MEDS: FINASTERIDE 5 MG TABLET PO SCH (09:39)
[2016-11-08] MEDS: LOSARTAN POTASSIUM 25 MG TABLET PO SCH ×2 (09:39→22:09)
[2016-11-08] MEDS: ASPIRIN 81 MG TABLET, CHEWABLE PO SCH (09:39)
[2016-11-08] MEDS: CLOPIDOGREL BISULFATE 75 MG TABLET PO SCH (09:39)
[2016-11-08] MEDS: CARVEDILOL 12.5 MG TABLET PO SCH ×2 (09:39→22:08)
[2016-11-08] MEDS ORDERED: DICYCLOMINE HCL 20 MG TABLET PO ONE (13:00)
--- NOTE | 2016-11-08 16:23 | PDOC PROGRESS REPORT ---
Subjective Progress Note for:: 11/08/16 Subjective:: Patient is seen on morning rounds. He is confused to time and place. He keeps saying he wants to go home. He denies any nausea, vomiting or abdominal pain. He denies diarrhea at the present time. His is at bedside and upset with his confused state. He is getting ready to be taken down for a modified barium swallow evaluation. Review of systems were unable to be completed due to his mentation. Physical Exam Vital Signs: Temp Pulse Resp BP Pulse Ox 98.3 F 60 18 137/50 H 93 11/08/16 07:41 11/08/16 14:00 11/08/16 07:41 11/08/16 07:41 11/08/16 07:41 Intake & Output 11/07/16 11/08/16 11/09/16 06:59 06:59 06:59 Intake Total 3091 2846 0 Output Total 480 475 100 Balance 2611 2371 -100 Weight 70.6 kg 72 kg General appearance: PRESENT: no acute distress, well-developed, well-nourished Head exam: PRESENT: atraumatic, normocephalic Eye exam: PRESENT: conjunctiva pink, EOMI, PERRLA. ABSENT: scleral icterus Ear exam: PRESENT: normal external ear exam Mouth exam: PRESENT: dry mucosa, neck supple, tongue midline, other Neck exam: ABSENT: carotid bruit, JVD, lymphadenopathy, thyromegaly Respiratory exam: PRESENT: clear to auscultation sheila. ABSENT: rales, rhonchi, wheezes Cardiovascular exam: PRESENT: RRR. ABSENT: diastolic murmur, rubs, systolic murmur Pulses: PRESENT: normal dorsalis pedis pul Vascular exam: PRESENT: normal capillary refill GI/Abdominal exam: PRESENT: hyperactive bowel sounds, soft Rectal exam: PRESENT: deferred Extremities exam: PRESENT: full ROM. ABSENT: calf tenderness, clubbing, pedal edema Neurological exam: PRESENT: alert, oriented to person, CN II-XII grossly intact Psychiatric exam: PRESENT: anxious Focused psych exam: PRESENT: flight of ideas, restlessness Skin exam: PRESENT: dry, intact, warm. ABSENT: cyanosis, rash Results Laboratory Results: 11/07/16 06:31 11/07/16 06:31 11/06/16 22:30 Sputum Gram Stain - Final 11/06/16 22:30 Sputum Sputum Culture - Final C.albicans/C.dubliniensis Yeast, Not Hailey Albicans Normal Jessica Absent Impressions: Abdomen/Pelvis CT 11/04/16 00:00 IMPRESSION: INTERVAL DEVELOPMENT OF DIFFUSE COLONIC WALL THICKENING PREDOMINATELY AFFECTING THE DESCENDING AND RECTOSIGMOID COLON COMPATIBLE WITH INFECTIOUS OR INFLAMMATORY COLITIS. INTERVAL ENLARGEMENT OF BILATERAL PLEURAL EFFUSIONS ABOVE. Chest X-Ray 11/06/16 00:00 IMPRESSION: Suspect worsening pulmonary edema. Assessment & Plan - Diagnosis (1) C. difficile colitis Is this a current diagnosis for this admission?: YesPlan: The patient is continued on oral vancomycin therapy. His diarrhea has almost resolved. Had significant improvement in his leukocytosis. We will continue therapy. He and have been counseled on the need for compliance (2) Sepsis Qualifiers: Sepsis type: sepsis due to unspecified organism Qualified Code(s): A41.9 - Sepsis, unspecified organism Is this a current diagnosis for this admission?: YesPlan: Hypotension and tachycardia resolved. Is presently afebrile and at least laboratory values improved. (3) Pneumonia Qualifiers: Laterality: right Lung location: lower lobe of lung Is this a current diagnosis for this admission?: YesPlan: Patient has a small right lower lobe infiltrate. There was concern with aspiration. Modified barium swallow done today which he did fairly well with. He had no aspiration into his lungs. He will be continued on a chopped diet. (4) Dysphagia, pharyngeal phase Is this a current diagnosis for this admission?: Yes (5) HBP (high blood pressure) Qualifiers: Hypertension type: essential hypertension Qualified Code(s): I10 - Essential (primary) hypertension Is this a current diagnosis for this admission?: YesPlan: Presently normotensive (6) Ischemic cardiomyopathy Is this a current diagnosis for this admission?: YesPlan: Continue cardiac meds. We will hold diuretics at the present time. (7) Neuropathy Is this a current diagnosis for this admission?: Yes (8) Systolic CHF, chronic Is this a current diagnosis for this admission?: YesPlan: Patient was dehydrated from diarrhea. He has been gently rehydrated with IV therapy. He is tolerating diet now at the present time will discontinue IV fluid - Time Time Spent with patient: 25-34 minutes Critical Time spent with patient: 15-24 minutes Medications reviewed and adjusted accordingly: Yes Anticipated discharge: Home with Homehealth
--- NOTE | 2016-11-08 17:05 | RADIOLOGY REPORT (SQ) ---
EXAM DESCRIPTION: COOKIE SWALLOW COMPLETED DATE/TIME: 11/08/2016 9:26 am REASON FOR STUDY: Dysphagia, unspecified R 13.10, food in pharynx causing other injury, sequela T17. 228S, s/sx of aspiration COMPARISON: None. TECHNIQUE: Videofluoroscopic swallowing examination was performed in conjunction with speech patholo gy. Videofluoroscopic imaging was obtained and reviewed and these are the findings: RADIATION DOSE: Total fluoroscopy time: 1 minutes 54 seconds 1 fluoroscopy image saved to PACS. LIMITATIONS: None FINDINGS: The patient was brought into the fluoro room and placed upright on a modified barium swall ow chair. The patient was then given multiple consistencies mixed with barium to swallow under live fluoroscopic video guidance. According to the Speech Pathologist there was one episode of laryngeal penetration with thin liquids by straw. No other laryngeal penetration and no tracheal aspiration se en. There is a mild oral and pharyngeal phase delay noted. No significant post swallow residual see n. Please see speech pathology report for further details and recommendations. IMPRESSION: LARYNGEAL PENETRATION WITH THIN LIQUIDS BY STRAW. NO OTHER LARYNGEAL PENETRATION AND NO TRACHEAL ASPIRATION.PLEASE SEE SPEECH PATHOLOGIST REPORT FOR OTHER FINDINGS AND RECOMMENDATIONS. COMMENT: Quality ID [id number]: Final reports for procedures using fluoroscopy that document radiation exp osure indices, or exposure time and number of fluorographic images (if radiation exposure indices are not available) TECHNICAL DOCUMENTATION: JOB ID: [id number] [employer]- All Rights Reserved
[2016-11-08] MEDS: AMIODARONE HCL 200 MG TABLET PO SCH (22:08)
[2016-11-08] MEDS: VANCOMYCIN HCL 1,250 MG in DEXTROSE 5%-WATER 250 ML IV SCH (22:09)
[2016-11-08] MEDS: TAMSULOSIN HCL 0.4 MG CAP.SR.24H PO SCH (22:09)
[2016-11-08] MEDS: ATORVASTATIN CALCIUM 10 MG TABLET PO SCH (22:09)
[2016-11-08] MEDS: ALLOPURINOL 100 MG TABLET PO SCH (22:09)
[2016-11-09] MEDS: IMIPENEM/CILASTATIN SODIUM 500 MG in NORMAL SALINE 100 ML IV SCH ×3 (02:00→17:03)
[2016-11-09] MEDS: POTASSI CL 20 MEQ/NS 1L 1,000 ML IV PRN (03:54)
[2016-11-09 05:13] LABS: ANION GAP 6 (5-19); BLOOD UREA NITROGEN 25 mg/dL (7-20); CALCIUM 7.9 mg/dL (8.4-10.2); CARBON DIOXIDE 23 mmol/L (22-30); CHLORIDE 108 mmol/L (98-107); CREATININE RESULT 1.23 mg/dL (0.52-1.25); GLUCOSE 130 mg/dL (75-110); SODIUM 136.9 mmol/L (137-145)
[2016-11-09 05:28] LABS: POTASSIUM 2.8 mmol/L (3.6-5.0)
[2016-11-09 05:52] LABS: HEMATOCRIT 37.5 % (37.9-51.0); HEMOGLOBIN 12.2 g/dL (13.5-17.0); HGB HCT DIFFERENCE -0.9; MEAN CORPUSCULAR HEMOGLOBIN 30.4 pg (27.0-33.4); MEAN CORPUSCULAR HGB CONC 32.6 g/dL (32.0-36.0); MEAN CORPUSCULAR VOLUME 93 fl (80-97); RED BLOOD COUNT 4.02 10^6/uL (4.35-5.55); RED CELL DISTRIBUTION WIDTH 18.2 % (11.5-14.0)
[2016-11-09] MEDS: VANCOMYCIN HCL INJ 500 MG VIAL PO SCH ×3 (06:08→17:04)
[2016-11-09 06:10] LABS: BASOPHILS % (MANUAL) 0 % (0-2); EOSINOPHILS % (MANUAL) 2 % (0-6); LYMPHOCYTES % (MANUAL) 2 % (13-45); TOTAL CELLS COUNTED 100
[2016-11-09 06:11] LABS: ANISOCYTOSIS 2+; BURR CELLS 1+; OVALOCYTES SLIGHT; POIKILOCYTOSIS SLIGHT; SCHISTOCYTES SLIGHT; TEAR DROP CELLS SLIGHT; TOXIC GRANULATION SLIGHT
[2016-11-09] MEDS: HEPARIN SOD (PORCINE) 5,000 UNIT/ML 1 ML SYRINGE SUBCUT SCH ×3 (06:12→22:15)
[2016-11-09] MEDS: POTASSIUM CHLORIDE 20 MEQ/50 ML RTU IV SCH ×3 (06:16→12:28)
[2016-11-09] MEDS: LACTOBACILLUS ACIDOPHILUS 250 MG TAB PO SCH ×2 (10:08→17:02)
[2016-11-09] MEDS: CLOPIDOGREL BISULFATE 75 MG TABLET PO SCH (10:09)
[2016-11-09] MEDS: LANSOPRAZOLE 30 MG TAB.RAP.DR PO SCH (10:09)
[2016-11-09] MEDS: ASPIRIN 81 MG TABLET, CHEWABLE PO SCH (10:09)
[2016-11-09] MEDS: LOSARTAN POTASSIUM 25 MG TABLET PO SCH ×2 (10:10→21:53)
[2016-11-09] MEDS: FINASTERIDE 5 MG TABLET PO SCH (10:10)
[2016-11-09] MEDS: CARVEDILOL 12.5 MG TABLET PO SCH ×2 (10:10→21:55)
[2016-11-09] MEDS: DICYCLOMINE HCL 20 MG TABLET PO PRN (10:17)
[2016-11-09] MEDS: OXYCODONE HCL IR 5 MG TABLET PO PRN (12:29)
--- NOTE | 2016-11-09 16:59 | PDOC PROGRESS REPORT ---
Subjective Progress Note for:: 11/09/16 Subjective:: Patient is seen on morning rounds. He is oriented times today. He denies any shortness of breath or dyspnea.. He denies any nausea, vomiting or abdominal pain. He denies diarrhea at the present time. He had one episode of diarrhea overnight. He has restless leg syndrome. Review of systems were unable to be completed due to his mentation. Physical Exam Vital Signs: Temp Pulse Resp BP Pulse Ox 97.4 F 67 18 129/52 H 95 11/09/16 11:25 11/09/16 14:00 11/09/16 11:25 11/09/16 11:25 11/09/16 11:25 Intake & Output 11/08/16 11/09/16 11/10/16 06:59 06:59 06:59 Intake Total 2846 1962 236 Output Total 475 425 100 Balance 2371 1537 136 Weight 72 kg 76.1 kg General appearance: PRESENT: no acute distress, well-developed, well-nourished Head exam: PRESENT: atraumatic, normocephalic Eye exam: PRESENT: conjunctiva pink, EOMI, PERRLA. ABSENT: scleral icterus Ear exam: PRESENT: normal external ear exam Mouth exam: PRESENT: moist, tongue midline Neck exam: ABSENT: carotid bruit, JVD, lymphadenopathy, thyromegaly Respiratory exam: PRESENT: crackles - right base. ABSENT: rales, rhonchi, wheezes Cardiovascular exam: PRESENT: RRR. ABSENT: diastolic murmur, rubs, systolic murmur Pulses: PRESENT: normal dorsalis pedis pul Vascular exam: PRESENT: normal capillary refill GI/Abdominal exam: PRESENT: normal bowel sounds, soft. ABSENT: distended, guarding, mass, organolmegaly, rebound, tenderness Rectal exam: PRESENT: deferred Extremities exam: PRESENT: full ROM. ABSENT: calf tenderness, clubbing, pedal edema Musculoskeletal exam: PRESENT: ambulatory, full ROM Neurological exam: PRESENT: alert, awake, oriented to person, oriented to place , oriented to time, oriented to situation, CN II-XII grossly intact. ABSENT: motor sensory deficit Psychiatric exam: PRESENT: appropriate affect, normal mood. ABSENT: homicidal ideation, suicidal ideation Skin exam: PRESENT: dry, intact, warm. ABSENT: cyanosis, rash Results Laboratory Results: 11/09/16 03:53 06/07/17 03:53 11/09/16 11/09/16 11/09/16 03:53 03:53 03:53 WBC 13.0 H RBC 4.02 L Hgb 12.2 L Hct 37.5 L MCV 93 MCH 30.4 MCHC 32.6 RDW 18.2 H Plt Count 184 Seg Neutrophils % Not Reportable Lymphocytes % Not Reportable Monocytes % Not Reportable Eosinophils % Not Reportable Basophils % Not Reportable Absolute Neutrophils Not Reportable Absolute Lymphocytes Not Reportable Absolute Monocytes Not Reportable Absolute Eosinophils Not Reportable Absolute Basophils Not Reportable Sodium 136.9 L Potassium 2.8 L* Chloride 108 H Carbon Dioxide 23 Anion Gap 6 BUN 25 H Creatinine 1.23 Est GFR ( Amer) > 60 Est GFR (Non-Af Amer) 56 L Glucose 130 H Calcium 7.9 L Magnesium Cancelled 11/09/16 06:48 WBC RBC Hgb Hct MCV MCH MCHC RDW Plt Count Seg Neutrophils % Lymphocytes % Monocytes % Eosinophils % Basophils % Absolute Neutrophils Absolute Lymphocytes Absolute Monocytes Absolute Eosinophils Absolute Basophils Sodium Potassium Chloride Carbon Dioxide Anion Gap BUN Creatinine Est GFR ( Amer) Est GFR (Non-Af Amer) Glucose Calcium Magnesium 2.0 Impressions: Abdomen/Pelvis CT 11/04/16 00:00 IMPRESSION: INTERVAL DEVELOPMENT OF DIFFUSE COLONIC WALL THICKENING PREDOMINATELY AFFECTING THE DESCENDING AND RECTOSIGMOID COLON COMPATIBLE WITH INFECTIOUS OR INFLAMMATORY COLITIS. INTERVAL ENLARGEMENT OF BILATERAL PLEURAL EFFUSIONS ABOVE. Chest X-Ray 11/06/16 00:00 IMPRESSION: Suspect worsening pulmonary edema. Modified Barium Swallow 11/08/16 00:00 IMPRESSION: LARYNGEAL PENETRATION WITH THIN LIQUIDS BY STRAW. NO OTHER LARYNGEAL PENETRATION AND NO TRACHEAL ASPIRATION.PLEASE SEE SPEECH PATHOLOGIST REPORT FOR OTHER FINDINGS AND RECOMMENDATIONS. Assessment & Plan - Diagnosis (1) C. difficile colitis Is this a current diagnosis for this admission?: YesPlan: The patient is continued on oral vancomycin therapy. His diarrhea has almost resolved. Had significant improvement in his leukocytosis. We will continue therapy. He and have been counseled on the need for compliance (2) Sepsis Qualifiers: Sepsis type: sepsis due to unspecified organism Qualified Code(s): A41.9 - Sepsis, unspecified organism Is this a current diagnosis for this admission?: YesPlan: Hypotension and tachycardia resolved. Is presently afebrile and laboratory values continue to improve. (3) Pneumonia Qualifiers: Laterality: right Lung location: lower lobe of lung Is this a current diagnosis for this admission?: YesPlan: Patient has a small right lower lobe infiltrate. There was concern with aspiration. Modified barium swallow done today which he did fairly well with. He had no aspiration into his lungs. He will be continued on a chopped diet. (4) Dysphagia, pharyngeal phase Is this a current diagnosis for this admission?: YesPlan: He is tolerating regular diet with chopped meats (5) HBP (high blood pressure) Qualifiers: Hypertension type: essential hypertension Qualified Code(s): I10 - Essential (primary) hypertension Is this a current diagnosis for this admission?: YesPlan: Presently normotensive (6) Ischemic cardiomyopathy Is this a current diagnosis for this admission?: YesPlan: Continue cardiac meds. We will hold diuretics at the present time. (7) Neuropathy Is this a current diagnosis for this admission?: Yes (8) Systolic CHF, chronic Is this a current diagnosis for this admission?: YesPlan: Patient was dehydrated from diarrhea. He has been gently rehydrated with IV therapy. He is tolerating diet now at the present time will discontinue IV fluid - Time Time Spent with patient: 25-34 minutes Critical Time spent with patient: 15-24 minutes Medications reviewed and adjusted accordingly: Yes Anticipated discharge: Home with Homehealth
[2016-11-09] MEDS: VANCOMYCIN HCL 1,250 MG in DEXTROSE 5%-WATER 250 ML IV SCH (21:52)
[2016-11-09] MEDS: ALLOPURINOL 100 MG TABLET PO SCH (21:56)
[2016-11-09] MEDS: AMIODARONE HCL 200 MG TABLET PO SCH (21:56)
[2016-11-09] MEDS: ATORVASTATIN CALCIUM 10 MG TABLET PO SCH (21:56)
[2016-11-09] MEDS: TAMSULOSIN HCL 0.4 MG CAP.SR.24H PO SCH (21:56)
[2016-11-09] MEDS: ROPINIROLE HCL 1 MG TABLET PO SCH (21:57)
[2016-11-10] MEDS: VANCOMYCIN HCL INJ 500 MG VIAL PO SCH ×5 (00:26→23:25)
[2016-11-10] MEDS: IMIPENEM/CILASTATIN SODIUM 500 MG in NORMAL SALINE 100 ML IV SCH (01:35)
[2016-11-10] MEDS: DICYCLOMINE HCL 20 MG TABLET PO PRN ×2 (01:35→10:22)
[2016-11-10 04:33] LABS: HEMOGLOBIN 13.2 g/dL (13.5-17.0); HGB HCT DIFFERENCE -1.4; MEAN CORPUSCULAR HEMOGLOBIN 29.8 pg (27.0-33.4); MEAN CORPUSCULAR HGB CONC 32.3 g/dL (32.0-36.0); MEAN CORPUSCULAR VOLUME 92 fl (80-97); RED BLOOD COUNT 4.43 10^6/uL (4.35-5.55); RED CELL DISTRIBUTION WIDTH 18.3 % (11.5-14.0); WHITE BLOOD COUNT 13.8 10^3/uL (4.0-10.5)
[2016-11-10 04:42] LABS: ANION GAP 5 (5-19); BLOOD UREA NITROGEN 22 mg/dL (7-20); CALCIUM 8.4 mg/dL (8.4-10.2); CARBON DIOXIDE 23 mmol/L (22-30); CHLORIDE 109 mmol/L (98-107); CREATININE RESULT 1.22 mg/dL (0.52-1.25); GLUCOSE 153 mg/dL (75-110); POTASSIUM 3.2 mmol/L (3.6-5.0); SODIUM 137.2 mmol/L (137-145)
[2016-11-10 05:26] LABS: BASOPHILS % (MANUAL) 0 % (0-2); EOSINOPHILS % (MANUAL) 2 % (0-6); LYMPHOCYTES % (MANUAL) 3 % (13-45); TOTAL CELLS COUNTED 100
[2016-11-10 05:28] LABS: ANISOCYTOSIS 2+; BURR CELLS SLIGHT; OVALOCYTES SLIGHT; POIKILOCYTOSIS SLIGHT; SCHISTOCYTES SLIGHT; TEAR DROP CELLS SLIGHT; TOXIC GRANULATION SLIGHT; TOXIC VACUOLATION PRESENT
[2016-11-10] MEDS: HEPARIN SOD (PORCINE) 5,000 UNIT/ML 1 ML SYRINGE SUBCUT SCH ×3 (06:04→23:25)
[2016-11-10] MEDS ORDERED: POTASSI CL 20 MEQ/50 ML RIDER 50 ML IV ONE (07:11)
[2016-11-10] MEDS ORDERED: POTASSIUM CHLORIDE 10 MEQ TABLET.SA PO ONE ×2 (07:15→14:00)
[2016-11-10] MEDS ORDERED: ONDANSETRON HCL INJ/PF 4 MG/2 ML SDV IV PRN (08:49)
[2016-11-10] MEDS: FINASTERIDE 5 MG TABLET PO SCH (10:20)
[2016-11-10] MEDS: LANSOPRAZOLE 30 MG TAB.RAP.DR PO SCH (10:21)
[2016-11-10] MEDS: CLOPIDOGREL BISULFATE 75 MG TABLET PO SCH (10:21)
[2016-11-10] MEDS: LOSARTAN POTASSIUM 25 MG TABLET PO SCH ×2 (10:21→22:27)
[2016-11-10] MEDS: CARVEDILOL 12.5 MG TABLET PO SCH ×2 (10:21→22:26)
[2016-11-10] MEDS: LACTOBACILLUS ACIDOPHILUS 250 MG TAB PO SCH ×2 (10:21→18:43)
[2016-11-10] MEDS: ASPIRIN 81 MG TABLET, CHEWABLE PO SCH (10:21)
--- NOTE | 2016-11-10 16:18 | PDOC PROGRESS REPORT ---
Subjective Progress Note for:: 11/10/16 Subjective:: Patient is seen on morning rounds. He is oriented today. He denies any shortness of breath or dyspnea.. He denies any nausea, vomiting or abdominal pain. He denies diarrhea at the present time. He had one episode of diarrhea overnight. He is complaining of the catheter irritating and feeling as if he has to urinate all the time.Review of systems are otherwise negative. Physical Exam Vital Signs: Temp Pulse Resp BP Pulse Ox 97.4 F 72 16 151/78 H 93 11/10/16 07:17 11/10/16 14:00 11/10/16 07:17 11/10/16 07:17 11/10/16 07:17 Intake & Output 11/09/16 11/10/16 11/11/16 06:59 06:59 06:59 Intake Total 1962 956 Output Total 425 350 Balance 1537 606 Weight 76.1 kg 74.5 kg General appearance: PRESENT: no acute distress, well-developed, well-nourished Head exam: PRESENT: atraumatic, normocephalic Eye exam: PRESENT: conjunctiva pink, EOMI, PERRLA. ABSENT: scleral icterus Ear exam: PRESENT: normal external ear exam Mouth exam: PRESENT: moist, tongue midline Teeth exam: PRESENT: edentulous Neck exam: ABSENT: carotid bruit, JVD, lymphadenopathy, thyromegaly Respiratory exam: PRESENT: clear to auscultation sheila, decreased breath sounds, symmetrical, unlabored Cardiovascular exam: PRESENT: +S1, systolic murmur Pulses: PRESENT: normal dorsalis pedis pul Vascular exam: PRESENT: normal capillary refill GI/Abdominal exam: PRESENT: normal bowel sounds, soft. ABSENT: distended, guarding, mass, organolmegaly, rebound, tenderness Rectal exam: PRESENT: deferred Extremities exam: PRESENT: full ROM. ABSENT: calf tenderness, clubbing, pedal edema Musculoskeletal exam: PRESENT: ambulatory Neurological exam: PRESENT: alert, awake, oriented to person, oriented to place , oriented to time, oriented to situation, CN II-XII grossly intact Psychiatric exam: PRESENT: anxious Skin exam: PRESENT: dry, other - multiple echymotic areas from venipunctures Results Laboratory Results: 11/10/16 03:42 11/10/16 03:42 11/10/16 11/10/16 03:42 03:42 WBC 13.8 H RBC 4.43 Hgb 13.2 L Hct 41.0 MCV 92 MCH 29.8 MCHC 32.3 RDW 18.3 H Plt Count 213 Seg Neutrophils % Not Reportable Lymphocytes % Not Reportable Monocytes % Not Reportable Eosinophils % Not Reportable Basophils % Not Reportable Absolute Neutrophils Not Reportable Absolute Lymphocytes Not Reportable Absolute Monocytes Not Reportable Absolute Eosinophils Not Reportable Absolute Basophils Not Reportable Sodium 137.2 Potassium 3.2 L Chloride 109 H Carbon Dioxide 23 Anion Gap 5 BUN 22 H Creatinine 1.22 Est GFR ( Amer) > 60 Est GFR (Non-Af Amer) 56 L Glucose 153 H Calcium 8.4 11/05/16 15:00 Blood Blood Culture - Final NO GROWTH IN 5 DAYS 11/05/16 14:40 Blood Blood Culture - Final NO GROWTH IN 5 DAYS Impressions: Abdomen/Pelvis CT 11/04/16 00:00 IMPRESSION: INTERVAL DEVELOPMENT OF DIFFUSE COLONIC WALL THICKENING PREDOMINATELY AFFECTING THE DESCENDING AND RECTOSIGMOID COLON COMPATIBLE WITH INFECTIOUS OR INFLAMMATORY COLITIS. INTERVAL ENLARGEMENT OF BILATERAL PLEURAL EFFUSIONS ABOVE. Chest X-Ray 11/06/16 00:00 IMPRESSION: Suspect worsening pulmonary edema. Modified Barium Swallow 11/08/16 00:00 IMPRESSION: LARYNGEAL PENETRATION WITH THIN LIQUIDS BY STRAW. NO OTHER LARYNGEAL PENETRATION AND NO TRACHEAL ASPIRATION.PLEASE SEE SPEECH PATHOLOGIST REPORT FOR OTHER FINDINGS AND RECOMMENDATIONS. Assessment & Plan - Diagnosis (1) C. difficile colitis Is this a current diagnosis for this admission?: YesPlan: The patient is continued on oral vancomycin therapy. His diarrhea has almost resolved. Had significant improvement in his leukocytosis. We will continue therapy. He and have been counseled on the need for compliance (2) Sepsis Qualifiers: Sepsis type: sepsis due to unspecified organism Qualified Code(s): A41.9 - Sepsis, unspecified organism Is this a current diagnosis for this admission?: YesPlan: Hypotension and tachycardia resolved. Is presently afebrile and laboratory values continue to improve. (3) Pneumonia Qualifiers: Laterality: right Lung location: lower lobe of lung Is this a current diagnosis for this admission?: YesPlan: Patient has a small right lower lobe infiltrate. There was concern with aspiration. Modified barium swallow done today which he did fairly well with. He had no aspiration into his lungs. He will be continued on a chopped diet. (4) Dysphagia, pharyngeal phase Is this a current diagnosis for this admission?: YesPlan: He is tolerating regular diet with chopped meats (5) HBP (high blood pressure) Qualifiers: Hypertension type: essential hypertension Qualified Code(s): I10 - Essential (primary) hypertension Is this a current diagnosis for this admission?: YesPlan: Presently normotensive (6) Ischemic cardiomyopathy Is this a current diagnosis for this admission?: YesPlan: Continue cardiac meds. We will hold diuretics at the present time. (7) Neuropathy Is this a current diagnosis for this admission?: Yes (8) Systolic CHF, chronic Is this a current diagnosis for this admission?: YesPlan: Patient was dehydrated from diarrhea. He has been gently rehydrated with IV therapy. He is tolerating diet now at the present time will discontinue IV fluid (9) Hypokalemia Is this a current diagnosis for this admission?: YesPlan: Repleted - Time Time Spent with patient: 25-34 minutes Critical Time spent with patient: 15-24 minutes Medications reviewed and adjusted accordingly: Yes Anticipated discharge: Home with Homehealth
[2016-11-10] MEDS: OXYCODONE HCL IR 5 MG TABLET PO PRN (18:48)
[2016-11-10] MEDS: ALLOPURINOL 100 MG TABLET PO SCH (22:26)
[2016-11-10] MEDS: AMIODARONE HCL 200 MG TABLET PO SCH (22:27)
[2016-11-10] MEDS: TAMSULOSIN HCL 0.4 MG CAP.SR.24H PO SCH (22:27)
[2016-11-10] MEDS: ATORVASTATIN CALCIUM 10 MG TABLET PO SCH (22:27)
[2016-11-10] MEDS: ROPINIROLE HCL 1 MG TABLET PO SCH (22:27)
[2016-11-11 05:27] LABS: ANION GAP 11 (5-19); BLOOD UREA NITROGEN 20 mg/dL (7-20); CALCIUM 8.7 mg/dL (8.4-10.2); CARBON DIOXIDE 21 mmol/L (22-30); CHLORIDE 108 mmol/L (98-107); CREATININE RESULT 1.24 mg/dL (0.52-1.25); GLUCOSE 146 mg/dL (75-110); POTASSIUM 3.9 mmol/L (3.6-5.0); SODIUM 139.5 mmol/L (137-145)
[2016-11-11] MEDS: VANCOMYCIN HCL INJ 500 MG VIAL PO SCH ×3 (05:59→17:35)
[2016-11-11] MEDS: HEPARIN SOD (PORCINE) 5,000 UNIT/ML 1 ML SYRINGE SUBCUT SCH ×3 (06:17→21:41)
[2016-11-11] MEDS: LANSOPRAZOLE 30 MG TAB.RAP.DR PO SCH (08:45)
[2016-11-11] MEDS: LACTOBACILLUS ACIDOPHILUS 250 MG TAB PO SCH ×2 (08:46→17:35)
[2016-11-11] MEDS: ASPIRIN 81 MG TABLET, CHEWABLE PO SCH (08:46)
[2016-11-11] MEDS: CARVEDILOL 12.5 MG TABLET PO SCH ×2 (08:46→21:41)
[2016-11-11] MEDS: LOSARTAN POTASSIUM 25 MG TABLET PO SCH ×2 (08:46→21:41)
[2016-11-11] MEDS: FINASTERIDE 5 MG TABLET PO SCH (08:46)
[2016-11-11] MEDS: CLOPIDOGREL BISULFATE 75 MG TABLET PO SCH (08:47)
--- NOTE | 2016-11-11 11:35 | PDOC PROGRESS REPORT ---
Subjective Progress Note for:: 11/11/16 Subjective:: Patient is seen on morning rounds. He is confused intermittently. He is presently oriented . His is at bedside. He denies any shortness of breath or dyspnea.. He denies any nausea, vomiting or abdominal pain. He had one episode of diarrhea this morning. He needed to be straight cathed one time last night. Review of systems are otherwise negative. Physical Exam Vital Signs: Temp Pulse Resp BP Pulse Ox 97.3 F 59 L 20 143/93 H 96 11/11/16 07:32 11/11/16 07:32 11/11/16 07:32 11/11/16 07:32 11/11/16 07:32 Intake & Output 11/10/16 11/11/16 11/12/16 06:59 06:59 06:59 Intake Total 956 770 Output Total 350 740 Balance 606 30 Weight 74.5 kg 72.8 kg General appearance: PRESENT: no acute distress, well-developed, well-nourished Head exam: PRESENT: atraumatic, normocephalic Eye exam: PRESENT: conjunctiva pink, EOMI, PERRLA. ABSENT: scleral icterus Ear exam: PRESENT: normal external ear exam Mouth exam: PRESENT: moist, tongue midline Neck exam: ABSENT: carotid bruit, JVD, lymphadenopathy, thyromegaly Respiratory exam: PRESENT: decreased breath sounds - right base, symmetrical, unlabored Cardiovascular exam: PRESENT: RRR, +S1, +S2, systolic murmur Pulses: PRESENT: normal dorsalis pedis pul Vascular exam: PRESENT: normal capillary refill GI/Abdominal exam: PRESENT: normal bowel sounds, soft. ABSENT: distended, guarding, mass, organolmegaly, rebound, tenderness Rectal exam: PRESENT: deferred Extremities exam: PRESENT: full ROM. ABSENT: calf tenderness, clubbing, pedal edema Neurological exam: PRESENT: alert, awake, oriented to person, oriented to place , oriented to time, CN II-XII grossly intact, normal gait Psychiatric exam: PRESENT: appropriate affect, normal mood. ABSENT: homicidal ideation, suicidal ideation Skin exam: PRESENT: dry, intact, warm. ABSENT: cyanosis, rash Results Laboratory Results: 11/10/16 03:42 11/11/16 03:57 11/11/16 03:57 Sodium 139.5 Potassium 3.9 Chloride 108 H Carbon Dioxide 21 L Anion Gap 11 BUN 20 Creatinine 1.24 Est GFR ( Amer) > 60 Est GFR (Non-Af Amer) 55 L Glucose 146 H Calcium 8.7 11/05/16 15:00 Blood Blood Culture - Final NO GROWTH IN 5 DAYS 11/05/16 14:40 Blood Blood Culture - Final NO GROWTH IN 5 DAYS Impressions: Abdomen/Pelvis CT 11/04/16 00:00 IMPRESSION: INTERVAL DEVELOPMENT OF DIFFUSE COLONIC WALL THICKENING PREDOMINATELY AFFECTING THE DESCENDING AND RECTOSIGMOID COLON COMPATIBLE WITH INFECTIOUS OR INFLAMMATORY COLITIS. INTERVAL ENLARGEMENT OF BILATERAL PLEURAL EFFUSIONS ABOVE. Chest X-Ray 11/06/16 00:00 IMPRESSION: Suspect worsening pulmonary edema. Modified Barium Swallow 11/08/16 00:00 IMPRESSION: LARYNGEAL PENETRATION WITH THIN LIQUIDS BY STRAW. NO OTHER LARYNGEAL PENETRATION AND NO TRACHEAL ASPIRATION.PLEASE SEE SPEECH PATHOLOGIST REPORT FOR OTHER FINDINGS AND RECOMMENDATIONS. Assessment & Plan - Diagnosis (1) C. difficile colitis Is this a current diagnosis for this admission?: YesPlan: The patient is continued on oral vancomycin therapy. His diarrhea has almost resolved. Had significant improvement in his leukocytosis. We will continue therapy. He and have been counseled on the need for compliance (2) Sepsis Qualifiers: Sepsis type: sepsis due to unspecified organism Qualified Code(s): A41.9 - Sepsis, unspecified organism Is this a current diagnosis for this admission?: YesPlan: Hypotension and tachycardia resolved. Is presently afebrile and laboratory values continue to improve. (3) Pneumonia Qualifiers: Laterality: right Lung location: lower lobe of lung Is this a current diagnosis for this admission?: YesPlan: Patient has a small right lower lobe infiltrate. There was concern with aspiration. Modified barium swallow done today which he did fairly well with. He had no aspiration into his lungs. He will be continued on a chopped diet. (4) Dysphagia, pharyngeal phase Is this a current diagnosis for this admission?: YesPlan: He is tolerating regular diet with chopped meats (5) HBP (high blood pressure) Qualifiers: Hypertension type: essential hypertension Qualified Code(s): I10 - Essential (primary) hypertension Is this a current diagnosis for this admission?: YesPlan: Presently normotensive (6) Ischemic cardiomyopathy Is this a current diagnosis for this admission?: YesPlan: Continue cardiac meds. We will hold diuretics at the present time. (7) Neuropathy Is this a current diagnosis for this admission?: Yes (8) Systolic CHF, chronic Is this a current diagnosis for this admission?: YesPlan: Patient was dehydrated from diarrhea. He has been gently rehydrated with IV therapy. He is tolerating diet now at the present time will discontinue IV fluid (9) Hypokalemia Is this a current diagnosis for this admission?: YesPlan: Repleted (10) Debility Is this a current diagnosis for this admission?: YesPlan: Physical therapy consulted. He will need short term rehab prior to returning home - Time Time Spent with patient: 25-34 minutes Critical Time spent with patient: 15-24 minutes Medications reviewed and adjusted accordingly: Yes Anticipated discharge: SNF Within: when bed available
[2016-11-11] MEDS: FUROSEMIDE 20 MG TABLET PO SCH (17:34)
[2016-11-11] MEDS: OXYCODONE HCL IR 5 MG TABLET PO PRN (17:50)
[2016-11-11] MEDS: ROPINIROLE HCL 1 MG TABLET PO SCH (21:41)
[2016-11-11] MEDS: AMIODARONE HCL 200 MG TABLET PO SCH (21:41)
[2016-11-11] MEDS: ATORVASTATIN CALCIUM 10 MG TABLET PO SCH (21:41)
[2016-11-11] MEDS: ALLOPURINOL 100 MG TABLET PO SCH (21:41)
[2016-11-11] MEDS: TAMSULOSIN HCL 0.4 MG CAP.SR.24H PO SCH (21:42)
[2016-11-12] MEDS: VANCOMYCIN HCL INJ 500 MG VIAL PO SCH ×2 (00:05→06:25)
[2016-11-12 04:20] LABS: ABSOLUTE BASOPHILS # (AUTO) 0.1 10^3/uL (0.0-0.2); ABSOLUTE EOSINOPHILS # (AUTO) 0.2 10^3/uL (0.0-0.6); ABSOLUTE LYMPHOCYTES (AUTO) 0.5 10^3/uL (0.5-4.7); ABSOLUTE MONOCYTES (AUTO) 0.8 10^3/uL (0.1-1.4); ABSOLUTE NEUT (AUTO) 7.6 10^3/uL (1.7-8.2); BASOPHILS % (AUTO) 0.7 % (0-2); EOSINOPHILS % (AUTO) 2.3 % (0-6); HEMOGLOBIN 13.3 g/dL (13.5-17.0); HGB HCT DIFFERENCE -1.1; MEAN CORPUSCULAR HGB CONC 32.3 g/dL (32.0-36.0); MEAN CORPUSCULAR VOLUME 93 fl (80-97); MONOCYTES % (AUTO) 8.7 % (3-13); RED BLOOD COUNT 4.41 10^6/uL (4.35-5.55); RED CELL DISTRIBUTION WIDTH 18.6 % (11.5-14.0); SEGMENTED NEUTROPHILS % (AUTO) 82.3 % (42-78); WHITE BLOOD COUNT 9.2 10^3/uL (4.0-10.5)
[2016-11-12 04:30] LABS: BLOOD UREA NITROGEN 19 mg/dL (7-20); CALCIUM 8.1 mg/dL (8.4-10.2); CREATININE RESULT 1.22 mg/dL (0.52-1.25); GLUCOSE 134 mg/dL (75-110); POTASSIUM 3.4 mmol/L (3.6-5.0)
[2016-11-12 04:38] LABS: ANION GAP 6 (5-19); CARBON DIOXIDE 24 mmol/L (22-30); CHLORIDE 109 mmol/L (98-107); SODIUM 139.4 mmol/L (137-145)
[2016-11-12] MEDS: HEPARIN SOD (PORCINE) 5,000 UNIT/ML 1 ML SYRINGE SUBCUT SCH ×3 (06:20→22:21)
[2016-11-12] MEDS ORDERED: POTASSIUM CHLORIDE 10 MEQ TABLET.SA PO ONE (07:40)
[2016-11-12] MEDS ORDERED: FUROSEMIDE 20 MG TABLET PO SCH (08:00)
[2016-11-12] MEDS: LACTOBACILLUS ACIDOPHILUS 250 MG TAB PO SCH ×2 (08:39→17:19)
[2016-11-12] MEDS: LANSOPRAZOLE 30 MG TAB.RAP.DR PO SCH (08:39)
[2016-11-12] MEDS: ASPIRIN 81 MG TABLET, CHEWABLE PO SCH (08:39)
[2016-11-12] MEDS: LOSARTAN POTASSIUM 25 MG TABLET PO SCH ×2 (08:40→22:21)
[2016-11-12] MEDS: FUROSEMIDE 40 MG TABLET PO SCH (08:40)
[2016-11-12] MEDS: CARVEDILOL 12.5 MG TABLET PO SCH ×2 (08:40→22:21)
[2016-11-12] MEDS: FINASTERIDE 5 MG TABLET PO SCH (08:41)
[2016-11-12] MEDS: CLOPIDOGREL BISULFATE 75 MG TABLET PO SCH (08:41)
[2016-11-12] MEDS ORDERED: POTASSIUM CHLORIDE 20 MEQ/15 ML UDCUP PO ONE (08:45)
[2016-11-12] MEDS: OXYCODONE HCL IR 5 MG TABLET PO PRN (17:18)
[2016-11-12] MEDS: FUROSEMIDE 20 MG TABLET PO SCH (17:19)
[2016-11-12] MEDS: AMIODARONE HCL 200 MG TABLET PO SCH (22:20)
[2016-11-12] MEDS: MIRTAZAPINE 15 MG TABLET PO SCH (22:20)
[2016-11-12] MEDS: ALLOPURINOL 100 MG TABLET PO SCH (22:21)
[2016-11-12] MEDS: ATORVASTATIN CALCIUM 10 MG TABLET PO SCH (22:21)
[2016-11-12] MEDS: ROPINIROLE HCL 1 MG TABLET PO SCH (22:21)
[2016-11-12] MEDS: TAMSULOSIN HCL 0.4 MG CAP.SR.24H PO SCH (22:21)
[2016-11-13] MEDS: HEPARIN SOD (PORCINE) 5,000 UNIT/ML 1 ML SYRINGE SUBCUT SCH ×3 (06:00→21:05)
[2016-11-13] MEDS: FINASTERIDE 5 MG TABLET PO SCH (09:07)
[2016-11-13] MEDS: CLOPIDOGREL BISULFATE 75 MG TABLET PO SCH (09:07)
[2016-11-13] MEDS: LANSOPRAZOLE 30 MG TAB.RAP.DR PO SCH (09:07)
[2016-11-13] MEDS: ASPIRIN 81 MG TABLET, CHEWABLE PO SCH (09:07)
[2016-11-13] MEDS: LOSARTAN POTASSIUM 25 MG TABLET PO SCH ×2 (09:07→21:08)
[2016-11-13] MEDS: CARVEDILOL 12.5 MG TABLET PO SCH ×2 (09:08→21:06)
[2016-11-13] MEDS: POTASSIUM CHLORIDE 20 MEQ/15 ML UDCUP PO SCH (09:08)
[2016-11-13] MEDS: LACTOBACILLUS ACIDOPHILUS 250 MG TAB PO SCH ×2 (09:08→18:32)
[2016-11-13] MEDS: FUROSEMIDE 40 MG TABLET PO SCH (09:08)
[2016-11-13] MEDS ORDERED: POTASSIUM CHLORIDE 10 MEQ TABLET.SA PO SCH (10:00)
--- NOTE | 2016-11-13 11:08 | PDOC PROGRESS REPORT ---
Subjective Progress Note for:: 11/12/16 Subjective:: Patient is seen on morning rounds. He is confused intermittently. He is presently oriented to place and person . His is at bedside. He denies any shortness of breath or dyspnea. He was unable to void last night and had to have underwood placed. He had 600 cc of He denies any nausea, vomiting or abdominal pain. He had one episode of diarrhea this morning. His is upset regarding his confusion and debility. He did walk in the [place] with nursing yesterday. Confusion is worse at night. Review of systems are otherwise negative. Physical Exam Vital Signs: Temp Pulse Resp BP Pulse Ox 97.4 F 117 H 16 152/60 H 97 11/13/16 07:11 11/13/16 07:11 11/13/16 07:11 11/13/16 07:11 11/13/16 07:11 Intake & Output 11/12/16 11/13/16 11/14/16 06:59 06:59 06:59 Intake Total 293 675 Output Total 400 400 Balance -107 275 Weight 72.1 kg 75 kg General appearance: PRESENT: no acute distress, well-developed, well-nourished Head exam: PRESENT: atraumatic, normocephalic Eye exam: PRESENT: conjunctiva pink, EOMI, PERRLA. ABSENT: scleral icterus Ear exam: PRESENT: normal external ear exam Mouth exam: PRESENT: moist, tongue midline Neck exam: ABSENT: carotid bruit, JVD, lymphadenopathy, thyromegaly Respiratory exam: PRESENT: clear to auscultation sheila. ABSENT: rales, rhonchi, wheezes Cardiovascular exam: PRESENT: RRR. ABSENT: diastolic murmur, rubs, systolic murmur Pulses: PRESENT: normal dorsalis pedis pul Vascular exam: PRESENT: normal capillary refill GI/Abdominal exam: PRESENT: normal bowel sounds, soft. ABSENT: distended, guarding, mass, organolmegaly, rebound, tenderness Rectal exam: PRESENT: deferred Extremities exam: PRESENT: full ROM. ABSENT: calf tenderness, clubbing, pedal edema Neurological exam: PRESENT: alert, altered, awake, oriented to person, oriented to place, CN II-XII grossly intact Psychiatric exam: PRESENT: flat affect Skin exam: PRESENT: dry, skin tears Results Laboratory Results: 11/12/16 04:02 11/12/16 04:02 Impressions: Abdomen/Pelvis CT 11/04/16 00:00 IMPRESSION: INTERVAL DEVELOPMENT OF DIFFUSE COLONIC WALL THICKENING PREDOMINATELY AFFECTING THE DESCENDING AND RECTOSIGMOID COLON COMPATIBLE WITH INFECTIOUS OR INFLAMMATORY COLITIS. INTERVAL ENLARGEMENT OF BILATERAL PLEURAL EFFUSIONS ABOVE. Chest X-Ray 11/06/16 00:00 IMPRESSION: Suspect worsening pulmonary edema. Modified Barium Swallow 11/08/16 00:00 IMPRESSION: LARYNGEAL PENETRATION WITH THIN LIQUIDS BY STRAW. NO OTHER LARYNGEAL PENETRATION AND NO TRACHEAL ASPIRATION.PLEASE SEE SPEECH PATHOLOGIST REPORT FOR OTHER FINDINGS AND RECOMMENDATIONS. Assessment & Plan - Diagnosis (1) C. difficile colitis Is this a current diagnosis for this admission?: YesPlan: The patient is continued on oral vancomycin therapy. His diarrhea has almost resolved. Had significant improvement in his leukocytosis. We will continue therapy for a total of 2 weeks due to reoccurrence. Stool culture on 11/12 negative for cdiff. He and have been counseled on the need for compliance (2) Sepsis Qualifiers: Sepsis type: sepsis due to unspecified organism Qualified Code(s): A41.9 - Sepsis, unspecified organism Is this a current diagnosis for this admission?: YesPlan: Resolved (3) Pneumonia Qualifiers: Laterality: right Lung location: lower lobe of lung Is this a current diagnosis for this admission?: YesPlan: Improved. No longer oxygen dependent (4) Dysphagia, pharyngeal phase Is this a current diagnosis for this admission?: YesPlan: He is tolerating regular diet with chopped meats (5) HBP (high blood pressure) Qualifiers: Hypertension type: essential hypertension Qualified Code(s): I10 - Essential (primary) hypertension Is this a current diagnosis for this admission?: YesPlan: Presently normotensive (6) Ischemic cardiomyopathy Is this a current diagnosis for this admission?: YesPlan: Continue cardiac meds. We will hold diuretics at the present time. (7) Neuropathy Is this a current diagnosis for this admission?: Yes (8) Systolic CHF, chronic Is this a current diagnosis for this admission?: YesPlan: Patient was dehydrated from diarrhea. He has been gently rehydrated with IV therapy. He is tolerating diet now at the present time will discontinue IV fluid (9) Hypokalemia Is this a current diagnosis for this admission?: YesPlan: Repleted (10) Debility Is this a current diagnosis for this admission?: YesPlan: Physical therapy consulted. He will need short term rehab prior to returning home - Time Time Spent with patient: 25-34 minutes Critical Time spent with patient: 15-24 minutes Medications reviewed and adjusted accordingly: Yes Anticipated discharge: Acute Rehab Within: when bed available
--- NOTE | 2016-11-13 11:47 | PDOC PROGRESS REPORT ---
Subjective Progress Note for:: 11/13/16 Subjective:: Patient is seen on morning rounds. He is confused intermittently. He is presently oriented to place and person . His is at bedside. He denies any shortness of breath or dyspnea. He was unable to void last night and had to have underwood placed. He had 600 cc of urine in his bladder. He has been on flomax He denies any nausea, vomiting or abdominal pain. He had one episode of diarrhea this morning. His is upset regarding his confusion and debility. He did walk in the [place] with nursing yesterday. Confusion is worse at night. Review of systems are otherwise negative. Physical Exam Vital Signs: Temp Pulse Resp BP Pulse Ox 97.4 F 117 H 16 152/60 H 97 11/13/16 07:11 11/13/16 07:11 11/13/16 07:11 11/13/16 07:11 11/13/16 07:11 Intake & Output 11/12/16 11/13/16 11/14/16 06:59 06:59 06:59 Intake Total 293 675 Output Total 400 400 Balance -107 275 Weight 72.1 kg 75 kg General appearance: PRESENT: no acute distress, well-developed, well-nourished Head exam: PRESENT: atraumatic, normocephalic Eye exam: PRESENT: conjunctiva pink, EOMI, PERRLA. ABSENT: scleral icterus Ear exam: PRESENT: normal external ear exam Mouth exam: PRESENT: moist, tongue midline Neck exam: ABSENT: carotid bruit, JVD, lymphadenopathy, thyromegaly Respiratory exam: PRESENT: clear to auscultation sheial, decreased breath sounds, symmetrical, unlabored - right base. ABSENT: rales, rhonchi, wheezes Cardiovascular exam: PRESENT: RRR. ABSENT: diastolic murmur, rubs, systolic murmur Pulses: PRESENT: normal carotid pulses, normal radial pulses Vascular exam: PRESENT: normal capillary refill GI/Abdominal exam: PRESENT: normal bowel sounds, soft. ABSENT: distended, guarding, mass, organolmegaly, rebound, tenderness Rectal exam: PRESENT: deferred Extremities exam: PRESENT: full ROM. ABSENT: calf tenderness, clubbing, pedal edema Musculoskeletal exam: PRESENT: ambulatory, full ROM, normal inspection Neurological exam: PRESENT: alert, altered, awake, oriented to person, oriented to place, CN II-XII grossly intact Psychiatric exam: PRESENT: appropriate affect, normal mood. ABSENT: homicidal ideation, suicidal ideation Skin exam: PRESENT: dry, skin tears, warm Results Laboratory Results: 11/12/16 04:02 11/12/16 04:02 Impressions: Abdomen/Pelvis CT 11/04/16 00:00 IMPRESSION: INTERVAL DEVELOPMENT OF DIFFUSE COLONIC WALL THICKENING PREDOMINATELY AFFECTING THE DESCENDING AND RECTOSIGMOID COLON COMPATIBLE WITH INFECTIOUS OR INFLAMMATORY COLITIS. INTERVAL ENLARGEMENT OF BILATERAL PLEURAL EFFUSIONS ABOVE. Chest X-Ray 11/06/16 00:00 IMPRESSION: Suspect worsening pulmonary edema. Modified Barium Swallow 11/08/16 00:00 IMPRESSION: LARYNGEAL PENETRATION WITH THIN LIQUIDS BY STRAW. NO OTHER LARYNGEAL PENETRATION AND NO TRACHEAL ASPIRATION.PLEASE SEE SPEECH PATHOLOGIST REPORT FOR OTHER FINDINGS AND RECOMMENDATIONS. Assessment & Plan - Diagnosis (1) C. difficile colitis Is this a current diagnosis for this admission?: YesPlan: The patient is continued on oral vancomycin therapy. His diarrhea has almost resolved. Had significant improvement in his leukocytosis. We will continue therapy for a total of 2 weeks due to reoccurrence. Stool culture on 11/12 negative for cdiff. He and have been counseled on the need for compliance (2) Sepsis Qualifiers: Sepsis type: sepsis due to unspecified organism Qualified Code(s): A41.9 - Sepsis, unspecified organism Is this a current diagnosis for this admission?: YesPlan: Resolved (3) Pneumonia Qualifiers: Laterality: right Lung location: lower lobe of lung Is this a current diagnosis for this admission?: YesPlan: Improved. No longer oxygen dependent (4) Dysphagia, pharyngeal phase Is this a current diagnosis for this admission?: YesPlan: He is tolerating regular diet with chopped meats (5) HBP (high blood pressure) Qualifiers: Hypertension type: essential hypertension Qualified Code(s): I10 - Essential (primary) hypertension Is this a current diagnosis for this admission?: YesPlan: Presently normotensive (6) Ischemic cardiomyopathy Is this a current diagnosis for this admission?: YesPlan: Continue cardiac meds. We will hold diuretics at the present time. (7) Neuropathy Is this a current diagnosis for this admission?: Yes (8) Systolic CHF, chronic Is this a current diagnosis for this admission?: YesPlan: Patient was dehydrated from diarrhea. He has been gently rehydrated with IV therapy. He is tolerating diet now at the present time will discontinue IV fluid (9) Hypokalemia Is this a current diagnosis for this admission?: YesPlan: Repleted (10) Debility Is this a current diagnosis for this admission?: YesPlan: Physical therapy consulted. He will need short term rehab prior to returning home - Time Time Spent with patient: 25-34 minutes Critical Time spent with patient: 15-24 minutes Medications reviewed and adjusted accordingly: Yes Anticipated discharge: Acute Rehab Within: when bed available
[2016-11-13] MEDS: FUROSEMIDE 20 MG TABLET PO SCH (18:31)
[2016-11-13] MEDS: OXYCODONE HCL IR 5 MG TABLET PO PRN (18:36)
[2016-11-13] MEDS: AMIODARONE HCL 200 MG TABLET PO SCH (21:06)
[2016-11-13] MEDS: ROPINIROLE HCL 1 MG TABLET PO SCH (21:06)
[2016-11-13] MEDS: MIRTAZAPINE 15 MG TABLET PO SCH (21:08)
[2016-11-13] MEDS: TAMSULOSIN HCL 0.4 MG CAP.SR.24H PO SCH (21:08)
[2016-11-13] MEDS: ATORVASTATIN CALCIUM 10 MG TABLET PO SCH (21:08)
[2016-11-13] MEDS: ALLOPURINOL 100 MG TABLET PO SCH (21:08)
[2016-11-14] MEDS: HEPARIN SOD (PORCINE) 5,000 UNIT/ML 1 ML SYRINGE SUBCUT SCH ×2 (06:19→13:44)
[2016-11-14] MEDS: FUROSEMIDE 40 MG TABLET PO SCH (08:30)
[2016-11-14] MEDS: LANSOPRAZOLE 30 MG TAB.RAP.DR PO SCH (08:30)
--- NOTE | 2016-11-14 08:49 | PDOC TRANSFER SUMMARY ---
General - Admit/Disc Date/PCP Admission Date/Primary Care Provider: 11/04/16 11:55 JONO CASEY MD Discharge Date: 11/14/16 - Discharge Diagnosis (1) C. difficile colitis Is this a current diagnosis for this admission?: YesSummary: Patient latest stool on 11/12/2016 was negative for c diff. He will need 4 more days of vancomycin (2) Sepsis Is this a current diagnosis for this admission?: YesSummary: Resolved (3) Pneumonia Is this a current diagnosis for this admission?: YesSummary: Right lower lobe resolving. He is no longer requiring oxygen at the present time (4) Dysphagia, pharyngeal phase Is this a current diagnosis for this admission?: YesSummary: Patient has worked with speech therapy. He is tolerating a regular diet now that his mentation is improved (5) HBP (high blood pressure) Is this a current diagnosis for this admission?: YesSummary: Patient is normotensive on current medications (6) Ischemic cardiomyopathy Is this a current diagnosis for this admission?: YesSummary: Continue current medications. (7) Neuropathy Is this a current diagnosis for this admission?: YesSummary: Continue current medications. Fall risk (8) Systolic CHF, chronic Is this a current diagnosis for this admission?: YesSummary: Monitor for fluid volume overload. Patient with EF of 20% and is back on daily diuretic therapy (9) Hypokalemia Is this a current diagnosis for this admission?: YesSummary: Repleted (10) Debility Is this a current diagnosis for this admission?: YesSummary: Patient will need short term rehab for physical therapy - Additional Information Resuscitation Status: Full Code Discharge Diet: Cardiac, Diabetic Discharge Activity: Activity As Tolerated, Balance Activity w/Rest, Supervised Activity, Weigh Daily Home Medications: Allopurinol [Zyloprim 100 mg Tablet] 100 mg PO QHS 11/04/16 Amiodarone HCl [Cordarone 200 mg Tablet] 200 mg PO QHS 11/04/16 Aspirin [Aspirin 81 mg Chewable Tablet] 81 mg PO DAILY 11/04/16 Atorvastatin Calcium [Lipitor 10 mg Tablet] 10 mg PO QHS 11/04/16 Carvedilol [Coreg 12.5 mg Tablet] 12.5 mg PO BID 11/04/16 Clopidogrel Bisulfate [Plavix 75 mg Tablet] 75 mg PO DAILY 11/04/16 Finasteride [Proscar 5 mg Tablet] 5 mg PO DAILY 11/04/16 Linaclotide [Linzess] 290 mcg PO QAM 11/04/16 Losartan Potassium [Cozaar 25 mg Tablet] 25 mg PO BID 11/04/16 Oxycodone HCl [Oxycodone HCl 10 MG Tablet] 10 mg PO Q4HP PRN 11/04/16 Pantoprazole Sodium [Protonix] 40 mg PO QAM 11/04/16 Tamsulosin HCl [Flomax 0.4 mg Cap.sr] 0.4 mg PO QHS 11/04/16 Furosemide [Furosemide] 20 mg PO QPM 11/11/16 Furosemide [Furosemide] 40 mg PO QAM 11/11/16 History of Present Illness Admission Date/PCP: 11/04/16 11:55 JONO CASEY MD Patient complains of: Cough, progressive shortness of breath and diarrhea History of Present Illness: STORM HERNDON is a 86 year old male with past medical history of chronic systolic heart failure with EF of 20%, diabetes mellitus type II, peripheral neuropathy, essential hypertension, ICD/pacemaker, and recent c difficile infection requring hospitalization in 09/29/2016. He was found to be in mild respiratory distress by EMS with associated hypoxemia. He is presently on BIPAP therapy and comfortable. He initially was tachycardic, tachypneic with oxygen saturation of 88%. The patient had diarrhea for the last 2 weeks and had a negative c diff on 11/01. He was scheduled to undergo an EGD today by Dr Mckeon. Hospital Course Hospital Course: The patient was admitted to the hospitalist's service on IMCU. BIPAP was continued overnight. He was started on IV broad spectrum antibiotic therapy for right middle lobe pneumonia. He was found to have stool positive for c diff. He was started on oral Vancomycin therapy. He was seen by speech therapy for possible aspiration. He underwent a modified barium swallow which showed no aspiration. He had periods of increased confusion especially at night. He had one positive set of blood cultures showing staph hominis bacteremia. Repeat cultures were negative. He was treated for total of 7 days for right middle lobe pneumonia. He was gently hydrated with IV fluids. He was eventually able to be weaned from oxygen therapy. He is now back on his oral daily diuretic therapy. He continued to be confused intermittently. His diarrhea slowly resolved. His last stool culture done on 11/12 was negative for c diff. He will be treated for a total of 14 days of oral vancomycin therapy due to recurrent c diff infection that was initially treated with flagyl and failed. It should be noted patient only took 3 days of vancomycin after last hospitalization. PT and OT were consulted for debility. He required underwood catheter to be reinserted despite being on daily Flomax for urinary retention. He will need to follow up with urology post discharge. Physical Exam Vital Signs: Temp Pulse Resp BP Pulse Ox 97.6 F 60 16 122/55 L 96 11/14/16 04:41 11/14/16 04:41 11/14/16 04:41 11/14/16 04:41 11/14/16 04:41 Intake & Output 11/13/16 11/14/16 11/15/16 06:59 06:59 06:59 Intake Total 675 590 Output Total 400 950 Balance 275 -360 Weight 75 kg 72.2 kg General appearance: PRESENT: no acute distress, well-developed, well-nourished Head exam: PRESENT: atraumatic, normocephalic Eye exam: PRESENT: conjunctiva pink, EOMI, PERRLA. ABSENT: scleral icterus Ear exam: PRESENT: bleeding Mouth exam: PRESENT: moist, tongue midline Neck exam: ABSENT: carotid bruit, JVD, lymphadenopathy, thyromegaly Respiratory exam: PRESENT: decreased breath sounds, symmetrical, unlabored - right base Cardiovascular exam: PRESENT: +S1, +S2, systolic murmur Pulses: PRESENT: normal carotid pulses, normal radial pulses Vascular exam: PRESENT: normal capillary refill GI/Abdominal exam: PRESENT: normal bowel sounds, soft. ABSENT: distended, guarding, mass, organolmegaly, rebound, tenderness Rectal exam: PRESENT: deferred Extremities exam: PRESENT: full ROM. ABSENT: calf tenderness, clubbing, pedal edema Musculoskeletal exam: PRESENT: ambulatory, full ROM, normal inspection Neurological exam: PRESENT: alert, awake, oriented to person, oriented to place , CN II-XII grossly intact Psychiatric exam: PRESENT: appropriate affect, normal mood Skin exam: PRESENT: dry - right lower forearm, skin tears, warm Results Laboratory Results: 11/12/16 04:02 11/12/16 04:02 Impressions: Abdomen/Pelvis CT 11/04/16 00:00 IMPRESSION: INTERVAL DEVELOPMENT OF DIFFUSE COLONIC WALL THICKENING PREDOMINATELY AFFECTING THE DESCENDING AND RECTOSIGMOID COLON COMPATIBLE WITH INFECTIOUS OR INFLAMMATORY COLITIS. INTERVAL ENLARGEMENT OF BILATERAL PLEURAL EFFUSIONS ABOVE. Chest X-Ray 11/06/16 00:00 IMPRESSION: Suspect worsening pulmonary edema. Modified Barium Swallow 11/08/16 00:00 IMPRESSION: LARYNGEAL PENETRATION WITH THIN LIQUIDS BY STRAW. NO OTHER LARYNGEAL PENETRATION AND NO TRACHEAL ASPIRATION.PLEASE SEE SPEECH PATHOLOGIST REPORT FOR OTHER FINDINGS AND RECOMMENDATIONS. Transfer Plan - Disposition Transfer Plan: Transfer to [facility] for short term rehab - Time Spent with Patient Time spent with patient: Less than 30 Minutes Qualifiers PATEINT BEING DISCHARGED WITH ANY OF THE FOLLOWING DIAGNOSIS?: No
[2016-11-14] MEDS: FINASTERIDE 5 MG TABLET PO SCH (10:16)
[2016-11-14] MEDS: LOSARTAN POTASSIUM 25 MG TABLET PO SCH (10:16)
[2016-11-14] MEDS: CARVEDILOL 12.5 MG TABLET PO SCH (10:16)
[2016-11-14] MEDS: POTASSIUM CHLORIDE 20 MEQ/15 ML UDCUP PO SCH (10:16)
[2016-11-14] MEDS: CLOPIDOGREL BISULFATE 75 MG TABLET PO SCH (10:16)
[2016-11-14] MEDS: LACTOBACILLUS ACIDOPHILUS 250 MG TAB PO SCH (10:16)
[2016-11-14] MEDS: ASPIRIN 81 MG TABLET, CHEWABLE PO SCH (10:17)
[2016-11-14 16:02] VITALS: BP 146/52
== END 2016-11-14 16:15 | DRG 871 ==
LOC: ER 10:19 → EH 11:55 → UNDOADMIN 12:09 → EH 12:09 → 3N 13:56
PROVIDERS: ADMIT Internal Medicine; ATTEND Internal Medicine
PROC: 5A09457 Assistance with Respiratory Ventilation, 24-96 Consecutive Hours, Continuous Positive Airway Pressure (ICD-10-PCS; principal; 2016-11-04)
DX: A41.1 Sepsis due to other specified staphylococcus (principal); J96.21 Acute and chronic respiratory failure with hypoxia; I50.23 Acute on chronic systolic (congestive) heart failure; J18.9 Pneumonia, unspecified organism; J44.0 Chronic obstructive pulmonary disease with (acute) lower respiratory infection; I13.0 Hypertensive heart and chronic kidney disease with heart failure and stage 1 through stage 4 chronic kidney disease, or unspecified chronic kidney disease; A04.7 Enterocolitis due to Clostridium difficile; N18.3 Chronic kidney disease, stage 3 (moderate); E11.22 Type 2 diabetes mellitus with diabetic chronic kidney disease; I25.10 Atherosclerotic heart disease of native coronary artery without angina pectoris; K21.9 Gastro-esophageal reflux disease without esophagitis; N40.0 Benign prostatic hyperplasia without lower urinary tract symptoms; E78.5 Hyperlipidemia, unspecified; I25.5 Ischemic cardiomyopathy; E87.6 Hypokalemia; E86.0 Dehydration; E11.42 Type 2 diabetes mellitus with diabetic polyneuropathy; G25.81 Restless legs syndrome; R13.13 Dysphagia, pharyngeal phase; D63.8 Anemia in other chronic diseases classified elsewhere; R33.9 Retention of urine, unspecified; K59.00 Constipation, unspecified; Z85.828 Personal history of other malignant neoplasm of skin; Z79.899 Other long term (current) drug therapy; Z95.1 Presence of aortocoronary bypass graft; I25.2 Old myocardial infarction; Z88.8 Allergy status to other drugs, medicaments and biological substances; Z95.810 Presence of automatic (implantable) cardiac defibrillator; Z79.02 Long term (current) use of antithrombotics/antiplatelets; Z79.82 Long term (current) use of aspirin; Z82.49 Family history of ischemic heart disease and other diseases of the circulatory system
CPT/HCPCS: 36415; 71010; 74176; 74230; 80048; 80053; 80202; 81001; 82272; 82550; 82553; 82803; 83735; 83880; 84484; 85025; 85027; 87040; 87045; 87070; 87077; 87086; 87186; 87205; 87493; 89055; 93005; 93010; 94660; 99291; G8978-GP; G8979-GP; G8996-GN; G8997-GN; G8998-GN; J0456; J0696; J0743; J1644; J1940; J2543; J3370; J3480; J3490; J7060

== ENCOUNTER 2016-11-14 21:51 | Emergency (ER) | payer MEDICARE, OTHER ==
--- NOTE | 2016-11-14 23:48 | RADIOLOGY REPORT (SQ) ---
EXAM DESCRIPTION: CT HEAD WITHOUT COMPLETED DATE/TIME: 11/14/2016 11:20 pm REASON FOR STUDY: trauma COMPARISON: 01/13/2014 TECHNIQUE: Axial images acquired through the brain without intravenous contrast. Images reviewed wi th bone, brain and subdural windows. Images stored on PACS. All CT scanners at this facility use dose modulation, iterative reconstruction, and/or weight based d osing when appropriate to reduce radiation dose to as low as reasonably achievable (ALARA). [facility]: Dose Right [facility]: CareDose [facility]: Dose Right [facility]: Teradose 4D [facility]: [employer]coTurno RADIATION DOSE: 64.61 mGy. LIMITATIONS: None. FINDINGS: VENTRICLES: Normal size and contour. CEREBRUM: No masses. No hemorrhage. No midline shift. Normal nieves/white matter differentiation. N o evidence for acute infarction. CEREBELLUM: No masses. No hemorrhage. No alteration of density. No evidence for acute infarction. EXTRAAXIAL SPACES: No fluid collections. No masses. ORBITS AND GLOBE: No intra- or extraconal masses. Normal contour of globe without masses. CALVARIUM: No fracture. PARANASAL SINUSES: No fluid or mucosal thickening. SOFT TISSUES: No mass or hematoma. OTHER: No other significant finding. IMPRESSION: No acute intracranial findings. TECHNICAL DOCUMENTATION: JOB ID: [id number] Quality ID # [id number]: Final reports with documentation of one or more dose reduction techniques (e.g., Au tomated exposure control, adjustment of the mA and/or kV according to patient size, use of iterative reconstruction technique) 2010 [employer]- All Rights Reserved
--- NOTE | 2016-11-15 00:28 | RADIOLOGY REPORT (SQ) ---
EXAM DESCRIPTION: ELBOW RIGHT AP/LAT COMPLETED DATE/TIME: 11/14/2016 11:46 pm REASON FOR STUDY: trauma COMPARISON: None. NUMBER OF VIEWS: Two views. TECHNIQUE: AP and lateral radiographic images acquired of the right elbow. LIMITATIONS: None. FINDINGS: MINERALIZATION: Normal. BONES: No acute fracture or dislocation. No worrisome bone lesions. 1.0 cm fragmented enthesophyte of the lateral epicondyle. Mild ulnohumeral osteoarthritis. JOINT: No effusion. SOFT TISSUES: No soft tissue swelling. No foreign body. OTHER: No other significant finding. IMPRESSION: No acute findings. TECHNICAL DOCUMENTATION: JOB ID: [id number] [employer]- All Rights Reserved
--- NOTE | 2016-11-15 00:30 | RADIOLOGY REPORT (SQ) ---
EXAM DESCRIPTION: PELVIS AP COMPLETED DATE/TIME: 11/14/2016 11:46 pm REASON FOR STUDY: trauma COMPARISON: None. NUMBER OF VIEWS: One view TECHNIQUE: AP Pelvis LIMITATIONS: None. FINDINGS: MINERALIZATION: Normal. HIPS: No acute fracture or dislocation. No worrisome bone lesions. PELVIS AND SACRUM: No acute fracture or dislocation. No worrisome bone lesions. PUBIS AND ISCHIUM: No acute fracture. LOWER LUMBAR SPINE: No significant findings as visualized. Moderate L4-L5 vacuum disc desiccation. SOFT TISSUES: No findings. OTHER: No other significant finding. IMPRESSION: No acute findings. TECHNICAL DOCUMENTATION: JOB ID: [id number] [employer]- All Rights Reserved
--- NOTE | 2016-11-15 03:39 | ER Document Report ---
ED General - General Chief Complaint: Fall Injury Stated Complaint: FALL/HEAD INJURY Time Seen by Provider: 11/14/16 22:26 Notes: Patient is an 86-year-old male presents with complaint of a fall. Patient was just released from the hospital today and then brought to [place] longterm. After only being there for a few hours he was found on the floor. Patient denies any headache or head injury. Denies any neck or back pain. He has some pain to his elbow and arm from skin tears. No chest or abdominal pain. No other complaints at this time. While in the hospital family says she was walking with a walker and assistance from nursing staff. TRAVEL OUTSIDE OF THE [place] IN LAST 30 DAYS: No - Related Data Allergies/Adverse Reactions: digoxin [Digoxin] Allergy (Mild, Verified 11/02/16 12:04) felt bad procainamide HCl [From Procan SR] Allergy (Mild, Verified 11/02/16 12:04) ITCH, RASH ketamine Adverse Reaction (Intermediate, Verified 11/02/16 12:04) Confusion Irritability Past Medical History - Social History Smoking Status: Never Smoker Chew tobacco use (# tins/day): No Frequency of alcohol use: None Drug Abuse: None Family History: Reviewed & Not Pertinent - Past Medical History Cardiac Medical History: Reports: Hx Congestive Heart Failure - Status post AICD implant, Hx Coronary Artery Disease - 4 stents; coronary arterial bypass graft., Hx Heart Attack - 1980, Hx Hypercholesterolemia, Hx Hypertension Denies: Hx DVT, Hx Pulmonary Embolism Pulmonary Medical History: Reports: Hx Pneumonia - hx Denies: Hx Asthma, Hx Bronchitis, Hx COPD, Hx Sleep Apnea, Hx Tuberculosis Neurological Medical History: Denies: Hx Cerebrovascular Accident, Hx Seizures Endocrine Medical History: Denies: Hx Diabetes Mellitus Type 1, Hx Diabetes Mellitus Type 2, Hx Hyperthyroidism, Hx Hypothyroidism Renal/ Medical History: Reports: Hx Benign Prostatic Hyperplasia. Denies: Hx Peritoneal Dialysis Malignancy Medical History: Reports Hx Skin Cancer GI Medical History: Reports: Hx Gastroesophageal Reflux Disease. Denies: Hx Cirrhosis, Hx Hepatitis, Hx Hiatal Hernia Musculoskeltal Medical History: Denies Hx Arthritis Psychiatric Medical History: Denies: Hx Depression Infectious Medical History: Denies: Hx Hepatitis, Hx MRSA Past Surgical History: Reports: Hx Cardiac Catheterization - stents x4/ pmaker, defib, Hx Coronary Stent, Hx Open Heart Surgery - STENTS X 4, Hx Pacemaker - AICD implant - Immunizations Hx Diphtheria, Pertussis, Tetanus Vaccination: Yes Hx Pneumococcal Vaccination: 05/05/15 Review of Systems - Review of Systems Notes: My Normal Review Basic REVIEW OF SYSTEMS: CONSTITUTIONAL : Denies fever, chills, or sweats. Denies recent illness. RESPIRATORY: Denies cough, cold, or chest congestion. Denies shortness of breath, difficulty breathing, or wheezing. GASTROINTESTINAL: Denies abdominal pain. Denies nausea, vomiting, or diarrhea. Denies constipation. Last BM: MUSCULOSKELETAL: Pain over right arm. SKIN: skin tear. NEUROLOGICAL: Denies altered mental status or loss of consciousness. Denies headache. Denies weakness or paralysis or loss of use of either side. Denies problems with gait or speech. Denies sensory or motor loss. ALL OTHER SYSTEMS REVIEWED AND NEGATIVE. Physical Exam - Vital signs Vitals: Temp Pulse Resp BP Pulse Ox 97.9 F 69 17 146/60 H 94 11/14/16 22:02 11/14/16 22:02 11/14/16 22:02 11/14/16 22:02 11/14/16 22:02 - Notes Notes: General Appearance: Well nourished, alert, cooperative, no acute distress, no obvious discomfort. Well appearing. Vitals: reviewed, See vital signs table. Head: no swelling or tenderness to the head Eyes: PERRL, EOMI, Conjuctiva clear Mouth: No decreasd moisture Throat: No tonsillar inflammation, No airway obstruction, No lymphadenopathy Neck: Supple, no neck tenderness, Back: No thoracic or lumbar tenderness to palpation. Lungs: No wheezing, No rales, No rhonci, No accessory muscle use, good air exchange bilaterally. Heart: Normal rate, Regular rythm, No murmur, no rub Abdomen: Normal BS, soft, No rigidity, No abdominal tenderness, No guarding, no rebound, no abdominal masses, no organomegaly Extremities: strength 5/5 in all extremities, good pulses in all extremities, no swelling or tenderness in the extremities, no edema. Skin: warm, dry, appropriate color, no rash Neuro: speech clear, oriented x 3, normal affect, responds appropriately to questions. Patient is globally weak on exam. He is able to move all extremities on his own and has no focal deficits however he just has global weakness. Course - Vital Signs Vital signs: Temp Pulse Resp BP Pulse Ox 97.9 F 72 17 139/64 H 96 11/14/16 22:02 11/15/16 02:00 11/15/16 02:00 11/15/16 02:00 11/15/16 02:00 - Transfer of Care Notes: 11/15/16 06:32 Patient has no significant injuries from the fall. The family does not want him to go back to [place] longterm. They said they would take him home himself this morning. I did watch patient overnight had no further problems or issues. Patient will be discharged home this morning in care of his . Discharge - Discharge Clinical Impression: Skin tear Fall Qualifiers: Encounter type: initial encounter Qualified Code(s): W19.XXXA - Unspecified fall, initial encounter Condition: Good Disposition: HOME, SELF-CARE Additional Instructions: Please return to the ER immediately if there is any redness or swelling over the skin teats, you have fevers, or if you have further concerns. Please change the dressing on the skin tear in 48 hours. Referrals: JONO CASEY MD [Primary Care Provider] - Follow up in 3-5 days
[2016-11-15 07:02] VITALS: BP 150/74
== END 2016-11-15 07:01 | disposition home or self-care (01) ==
LOC: ER 21:51
DX: S51.011A Laceration without foreign body of right elbow, initial encounter (principal); S41.111A Laceration without foreign body of right upper arm, initial encounter; W19.XXXA Unspecified fall, initial encounter; Y92.129 Unspecified place in nursing home as the place of occurrence of the external cause; Z88.8 Allergy status to other drugs, medicaments and biological substances; I25.10 Atherosclerotic heart disease of native coronary artery without angina pectoris; I25.2 Old myocardial infarction; I10 Essential (primary) hypertension; Z98.61 Coronary angioplasty status; Z95.1 Presence of aortocoronary bypass graft; Z95.810 Presence of automatic (implantable) cardiac defibrillator
CPT/HCPCS: 70450; 72170; 99285

== ENCOUNTER 2016-11-16 01:23 | Inpatient (IN) | payer MEDICARE, OTHER ==
[2016-11-16 02:01] LABS: VENOUS BLOOD BASE EXCESS -3.1 mmol/L; VENOUS BLOOD HCO3 21.5 mmol/L (20-32); VENOUS BLOOD PH 7.38 (7.30-7.42)
[2016-11-16 02:11] LABS: HEMATOCRIT 40.6 % (37.9-51.0); HGB HCT DIFFERENCE -1.6; MEAN CORPUSCULAR HEMOGLOBIN 29.8 pg (27.0-33.4); MEAN CORPUSCULAR HGB CONC 32.1 g/dL (32.0-36.0); MEAN CORPUSCULAR VOLUME 93 fl (80-97); RED BLOOD COUNT 4.37 10^6/uL (4.35-5.55); RED CELL DISTRIBUTION WIDTH 19.3 % (11.5-14.0)
--- NOTE | 2016-11-16 02:13 | ER Document Report ---
ED General - General Chief Complaint: Shortness Of Breath Stated Complaint: SHORTNESS OF BREATH Time Seen by Provider: 11/16/16 01:35 Notes: Is a 86-year-old male who presents with complaint of difficulty breathing. He has a history of congestive heart failure and pulmonary edema. He was seen yesterday [facility] Family is unhappy with them is, therefore took him home. Patient did not receive his medications today after being taken home. She has not had any fevers. Denies chest pain. Patient is currently on BiPAP. He says he would not want a ventilator or to be intubated. TRAVEL OUTSIDE OF THE [place] IN LAST 30 DAYS: No - Related Data Allergies/Adverse Reactions: digoxin [Digoxin] Allergy (Mild, Verified 11/02/16 12:04) felt bad procainamide HCl [From Procan SR] Allergy (Mild, Verified 11/02/16 12:04) ITCH, RASH ketamine Adverse Reaction (Intermediate, Verified 11/02/16 12:04) Confusion Irritability Past Medical History - Social History Smoking Status: Unknown if Ever Smoked Frequency of alcohol use: None Drug Abuse: None Family History: Reviewed & Not Pertinent - Past Medical History Cardiac Medical History: Reports: Hx Congestive Heart Failure - Status post AICD implant, Hx Coronary Artery Disease - 4 stents; coronary arterial bypass graft., Hx Heart Attack - 1980, Hx Hypercholesterolemia, Hx Hypertension Denies: Hx DVT, Hx Pulmonary Embolism Pulmonary Medical History: Reports: Hx Pneumonia - hx Denies: Hx Asthma, Hx Bronchitis, Hx COPD, Hx Sleep Apnea, Hx Tuberculosis Neurological Medical History: Denies: Hx Cerebrovascular Accident, Hx Seizures Endocrine Medical History: Denies: Hx Diabetes Mellitus Type 1, Hx Diabetes Mellitus Type 2, Hx Hyperthyroidism, Hx Hypothyroidism Renal/ Medical History: Reports: Hx Benign Prostatic Hyperplasia. Denies: Hx Peritoneal Dialysis Malignancy Medical History: Reports Hx Skin Cancer GI Medical History: Reports: Hx Gastroesophageal Reflux Disease. Denies: Hx Cirrhosis, Hx Hepatitis, Hx Hiatal Hernia Musculoskeltal Medical History: Denies Hx Arthritis Psychiatric Medical History: Denies: Hx Depression Infectious Medical History: Denies: Hx Hepatitis, Hx MRSA Past Surgical History: Reports: Hx Cardiac Catheterization - stents x4/ pmaker, defib, Hx Coronary Stent, Hx Open Heart Surgery - STENTS X 4, Hx Pacemaker - AICD implant - Immunizations Hx Diphtheria, Pertussis, Tetanus Vaccination: Yes Hx Pneumococcal Vaccination: 05/05/15 Review of Systems - Review of Systems Notes: My Normal Review Basic REVIEW OF SYSTEMS: CONSTITUTIONAL : Denies fever, chills, or sweats. Denies recent illness. EENT: Denies eye, ear, throat, or mouth pain or symptoms. Denies nasal or sinus congestion. CARDIOVASCULAR: Denies chest pain. RESPIRATORY: Difficulty Breathing. GASTROINTESTINAL: Denies abdominal pain. Denies nausea, vomiting, or diarrhea. Denies constipation. Last BM: MUSCULOSKELETAL: Denies neck or back pain or joint pain or swelling. SKIN: Denies rash or skin lesions. NEUROLOGICAL: Denies altered mental status or loss of consciousness. Denies headache. Denies weakness or paralysis or loss of use of either side. Denies problems with gait or speech. Denies sensory or motor loss. ALL OTHER SYSTEMS REVIEWED AND NEGATIVE. Physical Exam - Vital signs Vitals: Resp Pulse Ox 30 H 94 11/16/16 01:33 11/16/16 01:33 - Notes Notes: General Appearance: Well nourished, alert, cooperative, moderate acute distress , no obvious discomfort. Vitals: reviewed, See vital signs table. Head: no swelling or tenderness to the head Eyes: PERRL, EOMI, Conjuctiva clear Mouth: No decreasd moisture Neck: Supple, no neck tenderness, Lungs: No wheezing, scattered rales, No rhonci, mild accessory muscle use, good air exchange bilaterally. Heart: Normal rate, Regular rythm, No murmur, no rub Abdomen: Normal BS, soft, No rigidity, No abdominal tenderness, No guarding, no rebound, no abdominal masses, no organomegaly Extremities: strength 5/5 in all extremities, good pulses in all extremities, no swelling or tenderness in the extremities, no edema. Skin: warm, dry, appropriate color, no rash Neuro: speech clear, oriented x 3, normal affect, responds appropriately to questions. Course - Re-evaluation Re-evalutation: 11/16/16 04:12 - Vital Signs Vital signs: Temp Pulse Resp BP Pulse Ox 98.3 F 19 140/60 H 97 11/16/16 02:03 11/16/16 06:01 11/16/16 06:01 11/16/16 06:01 - Laboratory Result Diagrams: 11/16/16 01:40 11/16/16 02:32 Laboratory results interpreted by me: 11/16/16 11/16/16 11/16/16 01:40 02:32 02:32 WBC 22.0 H Hgb 13.0 L RDW 19.3 H Seg Neuts % (Manual) 92 H Lymphocytes % (Manual) 6 L Monocytes % (Manual) 2 L Abs Neuts (Manual) 20.2 H Potassium 3.5 L Chloride 111 H Est GFR (Non-Af Amer) 56 L Glucose 121 H Calcium 8.2 L Creatine Kinase 33 L NT-Pro-B Natriuret Pep 27032 H Total Protein 5.2 L Albumin 2.5 L - EKG Interpretation by Me Additional EKG results interpreted by me: 11/16/16 02:12 Is reviewed and interpreted by me. EKG shows paced rhythm with rate of [address] segment elevation or depression. No ischemic T-wave inversions. [place] interval is within normal range. QRS duration QT intervals are prolonged. Old EKG for comparison is from November 04, 2016. - Transfer of Care Notes: Patient's troponin did come back. His difficulty breathing is much improved on the BiPAP. He does have history of coronary disease. He has a pacemaker defibrillator as well as multiple stents in the past. I did speak with the patient and his family. Patient does not want intubation. Does not want CPR. I talked to him about the possibility of heart catheterization. He does not want that. He wants to be made a DNR and does not want any interventional treatment. I think this is appropriate in the setting of the patient's chronic illness and age. With the hospitalist about admission for further treatment of the patient's pulmonary edema and possible pneumonia. I have ordered antibiotics to the patient's recent admissions, elevated white blood cell, and possible pneumonia on chest x-ray. I think the joint of the chest works very probably is fluid overload but cannot rule out pneumonia as potential cause especially since he recently had pneumonia and recent admission to the hospital and the leukocytosis. Dictation of this chart was performed using voice recognition software; therefore, there may be some unintended grammatical errors. 11/16/16 04:14 11/16/16 07:24 11/16/16 07:25 I have spoken with Dr. Archer who agrees to admit the patient. Discharge - Discharge Clinical Impression: Elevated troponin Pulmonary edema Qualifiers: Chronicity: acute Qualified Code(s): J81.0 - Acute pulmonary edema Leukocytosis Qualifiers: Leukocytosis type: unspecified Qualified Code(s): D72.829 - Elevated white blood cell count, unspecified Condition: Stable Disposition: ADMITTED INPATIENT Admitting Provider: Hospitalist Unit Admitted: [facility]
--- NOTE | 2016-11-16 02:15 | RADIOLOGY REPORT (SQ) ---
EXAM DESCRIPTION: CHEST SINGLE VIEW COMPLETED DATE/TIME: 11/16/2016 1:56 am REASON FOR STUDY: respiratory distress COMPARISON: Chest x-ray 11/06/2016 EXAM PARAMETERS: NUMBER OF VIEWS: One view. TECHNIQUE: Single frontal radiographic view of the chest acquired. RADIATION DOSE: NA LIMITATIONS: None. FINDINGS: LUNGS AND PLEURA: There are bilateral perihilar airspace opacities extending to the lung b ases. No sizable pleural effusion or pneumothorax. MEDIASTINUM AND HILAR STRUCTURES: Bilateral perihilar airspace opacities. HEART AND VASCULAR STRUCTURES: The heart is upper normal limit in size. There is central vascular co ngestion. BONES: No acute findings. HARDWARE: Left-sided pacemaker is present. IMPRESSION: Central vascular congestion. Bilateral perihilar airspace opacities extending to the star ng bases, may represent pulmonary edema and/or pneumonia. TECHNICAL DOCUMENTATION: JOB ID: [id number]
[2016-11-16] MEDS ORDERED: FUROSEMIDE INJ/PF 20 MG/2 ML SDV IV ONE (02:17)
[2016-11-16 02:28] LABS: BASOPHILS % (MANUAL) 0 % (0-2); EOSINOPHILS % (MANUAL) 0 % (0-6); LYMPHOCYTES % (MANUAL) 6 % (13-45); TOTAL CELLS COUNTED 100
[2016-11-16 02:30] LABS: ANISOCYTOSIS 2+; OVALOCYTES 1+; TOXIC VACUOLATION PRESENT
[2016-11-16 03:03] LABS: ALANINE AMINOTRANSFERASE 32 U/L (21-72); ALBUMIN 2.5 g/dL (3.5-5.0); ALKALINE PHOSPHATASE 71 U/L (38-126); ANION GAP 10 (5-19); ASPARTATE AMINO TRANSFERASE 30 U/L (17-59); BILIRUBIN,DIRECT 0.4 mg/dL (0.0-0.4); BLOOD UREA NITROGEN 16 mg/dL (7-20); CALCIUM 8.2 mg/dL (8.4-10.2); CARBON DIOXIDE 22 mmol/L (22-30); CHLORIDE 111 mmol/L (98-107); CREATINE KINASE 33 U/L (55-170); CREATININE RESULT 1.23 mg/dL (0.52-1.25); GLUCOSE 121 mg/dL (75-110); POTASSIUM 3.5 mmol/L (3.6-5.0); SODIUM 143.1 mmol/L (137-145); TOTAL PROTEIN 5.2 g/dL (6.3-8.2)
[2016-11-16 03:16] LABS: CREATINE KINASE MB 2.03 ng/mL (<4.55)
[2016-11-16] MEDS ORDERED: VANCOMYCIN HCL INJ 1000 MG VIAL IV ONE (03:45)
[2016-11-16] MEDS ORDERED: PIPERACILLIN/TAZOBACTAM 3.375 GM VIAL IV ONE (03:45)
[2016-11-16 03:53] LABS: TROPONIN I 0.106 ng/mL
[2016-11-16] MEDS ORDERED: OXYCODONE HCL SR 10 MG TABLET PO ONE (05:43)
[2016-11-16] MEDS ORDERED: FENTANYL CITRATE INJ/PF 100 MCG/2 ML AMPUL IV ONE ×2 (06:34)
[2016-11-16] MEDS ORDERED: LEVALBUTEROL HCL NEB 1.25 MG/3 ML AMPUL NEB PRN (09:05)
[2016-11-16] MEDS ORDERED: ACETAMINOPHEN 325 MG TABLET PO PRN (09:05)
[2016-11-16] MEDS ORDERED: ONDANSETRON HCL INJ/PF 4 MG/2 ML SDV IV PRN (09:11)
--- NOTE | 2016-11-16 09:34 | PDOC H&P ---
History of Present Illness Admission Date/PCP: 11/16/16 07:51 JONO CASEY MD Patient complains of: Shortness of breath History of Present Illness: STORM HERNDON is a 86 year old male with a history of congestive heart failure, and ejection fraction of 20% woke up early this morning because of acute shortness of breath. Patient was hypoxic and brought to the emergency room for evaluation. WBC was noted to be elevated at 20,000. Chest x-ray revealed pulmonary vascular congestion and bibasilar infiltrates. Patient was given 20 mg of Lasix as well as vancomycin and Zosyn. Patient was recently treated in the hospital 1-2 weeks ago for pneumonia. Patient was just discharged home 2 days ago to a subacute facility where he fell and sent to the emergency room. No reported shortness of breath coughing chills or fever at that time. Family decided to bring the patient back home rather than to the care home facility. Patient was doing well other than sleeping most of the time according to the family until early this morning upon waking up. Patient was given intravenous fentanyl in the emergency room and therefore unable to provide history due to sedation. Information provided by his who is at bedside. History unobtainable from the patient at this time. Past Medical History Cardiac Medical History: Reports: Congestive Heart Failure - Status post AICD implant, Coronary Artery Disease - 4 stents; coronary arterial bypass graft., Myocardial Infarction - 1980, Hyperlipidema, Hypertension Denies: DVT, Pulmonary Embolism Pulmonary Medical History: Reports: Pneumonia - recurrent Denies: Asthma, Bronchitis, Chronic Obstructive Pulmonary Disease (COPD), Sleep Apnea, Tuberculosis Neurological Medical History: Denies: Seizures Endocrine Medical History: Denies: Diabetes Mellitus Type 1, Diabetes Mellitus Type 2, Hyperthyroidism, Hypothyroidism Malignancy Medical History: Reports: Skin Cancer GI Medical History: Reports: Gastroesophageal Reflux Disease, Other - Recurrent Clostridium difficile colitis Denies: Cirrhosis, Hepatitis, Hiatal Hernia Musculoskeltal Medical History: Denies: Arthritis Psychiatric Medical History: Denies: Depression Hematology: Denies: Anemia, Sickle Cell Disease Infectious Medical History: Denies: Methicillin-Resistant Staph Aureus Past Surgical History Past Surgical History: Reports: Cardiac Catheterization - stents x4/ pmaker, defib, Coronary Stent, Pacemaker - AICD implant Social History Information Source: Relative Smoking Status: Unknown if Ever Smoked Frequency of Alcohol Use: None Hx Recreational Drug Use: No Drugs: None Hx Prescription Drug Abuse: No - Advance Directive Resuscitation Status: Do Not Resuscitate Family History Family History: CAD Parental Family History Reviewed: Yes Children Family History Reviewed: Yes Sibling(s) Family History Reviewed.: Yes Medication/Allergy Home Medications: Allopurinol [Zyloprim 100 mg Tablet] 100 mg PO QHS 11/04/16 Amiodarone HCl [Cordarone 200 mg Tablet] 200 mg PO QHS 11/04/16 Aspirin [Aspirin 81 mg Chewable Tablet] 81 mg PO DAILY 11/04/16 Atorvastatin Calcium [Lipitor 10 mg Tablet] 10 mg PO QHS 11/04/16 Carvedilol [Coreg 12.5 mg Tablet] 12.5 mg PO BID 11/04/16 Clopidogrel Bisulfate [Plavix 75 mg Tablet] 75 mg PO DAILY 11/04/16 Finasteride [Proscar 5 mg Tablet] 5 mg PO DAILY 11/04/16 Losartan Potassium [Cozaar 25 mg Tablet] 25 mg PO BID 11/04/16 Pantoprazole Sodium [Protonix] 40 mg PO QAM 11/04/16 Tamsulosin HCl [Flomax 0.4 mg Cap.sr] 0.4 mg PO QHS 11/04/16 Furosemide 60 mg PO QAM 11/11/16 Oxycodone HCl [Oxycodone HCl 10 MG Tablet] 10 mg PO Q4HP PRN #30 tablet Linaclotide [Linzess] 290 mcg PO DAILY 11/16/16 Allergies/Adverse Reactions: digoxin [Digoxin] Allergy (Mild, Verified 11/16/16 07:58) felt bad procainamide HCl [From Procan SR] Allergy (Mild, Verified 11/16/16 07:58) ITCH, RASH ketamine Adverse Reaction (Intermediate, Verified 11/16/16 07:58) Confusion Irritability Review of Systems ROS unobtainable: Due to mental status - Information provided by the who is at bedside. Other than provided in the history no other information available at this time. Cardiovascular: ABSENT: chest pain, edema Gastrointestinal: ABSENT: diarrhea Physical Exam Vital Signs: Temp Pulse Resp BP Pulse Ox 98.3 F 17 123/55 L 98 11/16/16 02:03 11/16/16 08:01 11/16/16 08:01 11/16/16 08:01 Intake & Output 11/15/16 11/16/1617 06:59 06:59 06:59 Output Total 550 Balance -550 Weight 63.503 kg General appearance: PRESENT: no acute distress, other - On BiPAP Head exam: PRESENT: atraumatic, normocephalic Eye exam: PRESENT: conjunctiva pink. ABSENT: scleral icterus Ear exam: PRESENT: normal external ear exam. ABSENT: drainage Mouth exam: PRESENT: moist, neck supple Neck exam: ABSENT: carotid bruit, JVD, lymphadenopathy, thyromegaly Respiratory exam: PRESENT: rales - Noted on the lower lung gunderson. ABSENT: rhonchi, wheezes Cardiovascular exam: PRESENT: RRR. ABSENT: diastolic murmur, rubs, systolic murmur Pulses: PRESENT: normal dorsalis pedis pul Vascular exam: PRESENT: normal capillary refill GI/Abdominal exam: PRESENT: normal bowel sounds, soft. ABSENT: distended, guarding, mass, organolmegaly, rebound, tenderness Rectal exam: PRESENT: deferred Extremities exam: PRESENT: other - Trace to +1 edema on the lower extremity [place] hose in place. ABSENT: calf tenderness, clubbing Neurological exam: PRESENT: altered - Patient is sedated and unable to cooperate at this time for neurological evaluation. Psychiatric exam: ABSENT: agitated Focused psych exam: ABSENT: restlessness Skin exam: PRESENT: dry, intact, warm. ABSENT: cyanosis, rash Results Impressions: Chest X-Ray 11/16/16 01:44 IMPRESSION: Central vascular congestion. Bilateral perihilar airspace opacities extending to the lung bases, may represent pulmonary edema and/or pneumonia. Assessment & Plan - Diagnosis (1) Acute respiratory failure Qualifiers: Respiratory failure complication: hypoxia Qualified Code(s): J96.01 - Acute respiratory failure with hypoxia Is this a current diagnosis for this admission?: Yes (2) Systolic CHF, acute on chronic Is this a current diagnosis for this admission?: Yes (3) Leukocytosis Qualifiers: Leukocytosis type: unspecified Qualified Code(s): D72.829 - Elevated white blood cell count, unspecified Is this a current diagnosis for this admission?: Yes (4) Hypokalemia Is this a current diagnosis for this admission?: Yes (5) HBP (high blood pressure) Qualifiers: Hypertension type: essential hypertension Qualified Code(s): I10 - Essential (primary) hypertension Is this a current diagnosis for this admission?: Yes (6) Ischemic cardiomyopathy Is this a current diagnosis for this admission?: Yes (7) Anemia Qualifiers: Anemia type: unspecified type Qualified Code(s): D64.9 - Anemia, unspecified Is this a current diagnosis for this admission?: Yes (8) CKD (chronic kidney disease), stage III Is this a current diagnosis for this admission?: Yes (9) Dyslipidemia Is this a current diagnosis for this admission?: Yes (10) RLS (restless legs syndrome) Is this a current diagnosis for this admission?: Yes - Time Time Spent: 50 to 70 Minutes Anticipated discharge: Home with Homehealth Within: within 72 hours - Inpatient Certification Based on my medical assessment, after consideration of the patient's comorbidities, presenting symptoms, or acuity I expect that the services needed warrant INPATIENT care.: Yes I certify that my determination is in accordance with my understanding of Medicare's requirements for reasonable and necessary INPATIENT services [42 CFR 412.3e].: Yes Medical Necessity: Significant Comorbidiites Make Outpatient Treatment Too Risky , Need Close Monitoring Due to Risk of Patient Decompensation, Need For Continuous Telemetry Monitoring Post Hospital Care: D/C Marketing Communications Leader Documentation - Plan Summary Plan Summary: Patient will be admitted to [facility]. We will continue the BiPAP. Respiratory to titrate as per protocol. I will begin the patient on intravenous diuretics. We will monitor WBC. We will do a follow-up chest x-ray in the morning and see if infiltrates improved. DVT prophylaxis with Lovenox will be placed. We will serially monitor cardiac enzymes. We will obtain cardiology consult. I will continue his cardiac medications. I will culture his sputum, hold any antibiotics for now as he was just treated for pneumonia complicated by Clostridium difficile colitis. Further testing depends on the initial evaluation as outlined above. We will get cardiology opinion as well.
--- NOTE | 2016-11-16 11:19 | EKG REPORT ---
SEVERITY:- ABNORMAL ECG - VENTRICULAR-PACED COMPLEXES : Confirmed by: Demetrius Flores 16-Nov-2016 11:18:50
[2016-11-16 11:42] LABS: FREE T3 2.15 pg/mL (2.77-5.27)
[2016-11-16 11:56] LABS: THYROID STIMULATING HORMONE 2.33 uIU/mL (0.47-4.68)
[2016-11-16] MEDS: CARVEDILOL 12.5 MG TABLET PO SCH ×2 (13:00→22:31)
[2016-11-16] MEDS: CLOPIDOGREL BISULFATE 75 MG TABLET PO SCH (13:00)
[2016-11-16] MEDS ORDERED: ENOXAPARIN SODIUM INJ 40 MG/0.4 ML DISP.SYRIN SUBCUT ONE (13:00)
[2016-11-16] MEDS: FUROSEMIDE INJ/PF 40 MG/4 ML SDV IV SCH ×2 (13:00→22:32)
[2016-11-16] MEDS: LOSARTAN POTASSIUM 25 MG TABLET PO SCH ×2 (13:01→22:32)
[2016-11-16] MEDS: ASPIRIN 81 MG TABLET, CHEWABLE PO SCH (13:01)
[2016-11-16] MEDS: DOCUSATE SODIUM 100 MG CAPSULE PO SCH ×2 (13:01→17:42)
[2016-11-16] MEDS: AMIODARONE HCL 200 MG TABLET PO SCH (22:31)
[2016-11-16] MEDS: ALLOPURINOL 100 MG TABLET PO SCH (22:31)
[2016-11-16] MEDS: TAMSULOSIN HCL 0.4 MG CAP.SR.24H PO SCH (22:31)
[2016-11-16] MEDS: ATORVASTATIN CALCIUM 10 MG TABLET PO SCH (22:31)
--- NOTE | 2016-11-16 23:08 | CONSULTATION REPORT E ---
Consultation Report NAME: STORM HERNDON : 1930 AGE: 86Y DATE: 11/16/2016 ROOM: 336 A TO: ALETA HOWARD M.D. FROM: Requesting Physician The patient was seen at 11:30 a.m. to 12:10 p.m. A total of 40 minutes spent on this patient. REASON FOR CONSULTATION: The patient with ischemic cardiomyopathy, admitted with CHF, bibasilar infiltrates suggestive of pneumonia, high white count of 20,000 and elevated troponin I. The patient recently was admitted for pneumonia in this hospital and discharged on the twelfth to a skilled care nursing facility. There is alleged that the patient fell and sent to the emergency room and the family were unsatisfied with the nursing staff and took the patient home. Unfortunately the patient did not get his medication. The patient was given Lasix and put on a BiPAP. At present the patient is very drowsy but still able to answer questions. Her has PND, orthopnea, and leg edema but no chest pain. He denies any cough, fever or chills. He has no wheezing. PAST MEDICAL HISTORY: Is positive for a history of coronary artery disease. He has an old myocardial infarction and a history of stents. He has ischemic cardiomyopathy. He also has a history of nonsustained ventricular tachycardia and had a biventricular AICD placed. He has no atrial arrhythmias. In October to November of 2011 the patient had chest pain and he was transferred to [facility] were a cardiac catheterization showed that there was mild to moderate left main disease. The LAD showed moderate disease and the circumflex at the bifurcation at the obtuse marginal one branch had a significant lesion which was stented. The patient at that time was also noted to have significant left carotid stenosis but subsequently had left carotid endarterectomy. The patient has no symptoms of TIA or CVA. The patient does have a history of COPD. He was an ex-smoker. There is no history of diabetes mellitus. He has a history of an enlarged prostate, symptoms controlled with medication. He also has a history of gout. He has a history of chronic renal insufficiency, his GFR has now come up to 56 but still stage 3A. He has no history of thyroid disease. PAST SURGICAL HISTORY: Positive for cardiac catheterization, stent placement, cataract surgery, AICD placement, and also left carotid endarterectomy. FAMILY HISTORY: Negative for coronary artery disease and negative for hypertension. ALLERGIES: The patient is allergic to PROCAINAMIDE and also he states that he has mental status changes with DIGOXIN. He is also allergic to KETAMINE. SOCIAL HISTORY: The patient quit smoking a long time ago, but he was a heavy smoker. There is no history of EtOH abuse. MEDICATIONS: 1. Tylenol 650 mg p.o. q.4 hours p.r.n. 2. Allopurinol 100 mg p.o. at bedtime. 3. Amiodarone 200 mg p.o. at bedtime. 4. Aspirin 81 mg p.o. daily. 5. Atorvastatin 10 mg p.o. at bedtime. 6. Coreg 12.5 mg p.o. q.12 hours. 7. Plavix 75 mg p.o. daily. 8. Colace 100 mg p.o. b.i.d. 9. Enoxaparin sodium 40 mg subcutaneously now and 40 mg subcutaneously q.a.m. 10. He has received Fentanyl in the emergency room 30 mcg IV x1 and 25 mcg IV x1. 11. He is on Lasix 20 mg IV x1 and Lasix 40 mg IV q.12 hours. 12. He is on Prevacid 30 mg p.o. q.a.m. 13. He is on Xopenex 1.25 mg nebulizer treatment q.4 hours p.r.n.. 14. He is on Losartan 25 mg p.o. q.12 hours. 15. He is on lovastatin 2.5 mg IV q.8 hours. 16. He is on Zofran 4 mg IV q.6 hours p.r.n. 17. He is on oxycodone 10 mg p.o. x1. 18. He is on piperacillin/tazobactam that is Zosyn 3.375 g IV x1. 19. He is on Flomax 0.4 mg p.o. at bedtime. 20. He is on vancomycin 1000 mg IV x1. DISPOSITION: The patient is a DNR/DNI, that is do not resuscitate/do not intubate. His is the surrogate healthcare decision maker. REVIEW OF SYSTEMS: CONSTITUTIONAL: Denies any fever, chills or rigors. Complains of fatigue and generalized weakness. HEAD: Denies history of headaches or head injury. EYES: No history of diplopia. No history of amblyopia. No history of amaurosis fugax. No history of excessive tearing of the eyes. 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 There is no tinnitus. History of dizziness mentioned earlier. No history of Meniere's disease. NOSE: There is no history of hay fever. No history of nosebleeds. No history of nasal polyps. MOUTH: There is no history of ulcers of the mouth. No history of altered taste sensation. No history of bleeding from the throat. THROAT: No history of odynophagia or dysphagia. No history of recurrent sore throats. SKIN: There is no skin rash. There is no petechiae. There is no pruritus. There is no yellowish discoloration of the skin. There is no psoriasis. There is no skin cancer. NECK: No history of enlarged neck lymph nodes. Scar of left carotid endarterectomy present. There is no goiter. Trachea is central. Carotids are equal, there is no bruit. There is mild JVD present. LUNGS: Denies any cough, bleeding, or sputum production. No symptoms suggestive of exacerbation of COPD. History of COPD at present but remains stable. The patient most likely has bibasilar pneumonia. No history of pulmonary embolism. No history of sleep apnea. No history of cough or sputum production. No history of hemoptysis or pleuritic chest pain. CARDIAC: History of CAD. History of VA. History of stents for cardiomyopathy ischemic in the past. The patient's LV ejection fraction was 20%. He has a history of nonsustained ventricular tachycardia and has a biventricular pacing AICD. The AICD is working fine, at present he is atrioventricular paced. He has PND, orthopnea, and leg edema. He has a history of hypertension, which is well controlled. GASTROINTESTINAL: The patient does have a history of GERD, which is controlled with medication. No history of peptic ulcer disease. No history of GI bleed. No history of abdominal pain. No history of jaundice. No history of altered bowel movements. RENAL: History of chronic kidney disease stage 3 at present GFR is improved to 56, which is stage 3A. He has a history of enlarged prostate, symptoms controlled with Flomax. No symptoms of UTI. No symptom of hematuria, pyuria, or dysuria. ENDOCRINE: No history of diabetes mellitus or thyroid disease. No history of polydipsia or polyuria. No history of heat or cold intolerance. MUSCULOSKELETAL: Denies any history of chronic muscle disease or arthritis. He has no collagen vascular disease. CENTRAL NERVOUS SYSTEM: He has no history of TIA or CVA. History of left carotid endarterectomy in the past. No symptoms of sleep apnea. No gait imbalance. History of dizziness as mentioned earlier which he describes as in the past as head spinning and not the room spinning. In the past he has had a history of vertigo. PSYCHIATRIC: He has a history of anxiety and panic attacks, but no history of suicidal ideation, no history of depression. VASCULAR: No history of calf or other claudication. No history of DVT. HEMATOLOGICAL: No history of bleeding diathesis. No history of clotting disorders. No history of easy bruisability. METABOLIC: He has a history of hyperlipidemia and he has a history of gout, he is on allopurinol. PHYSICAL EXAMINATION: GENERAL: On examination the patient is in mild distress. He is wearing a partial nonrebreather. O2 saturation is 100% on partial nonrebreather. He looks chronically ill. VITAL SIGNS: He is afebrile with a temperature of 97.6 degrees Fahrenheit, pulse is 62 beats per minute, blood pressure is 125/56, respirations are 20 per minute, O2 saturations are 100% on a partial nonrebreather. HEENT: Head is atraumatic, normocephalic. Eyes: Pupils are equal, round and regular, reactive to light and accommodation. Extraocular movements are normal. There is no conjunctival pallor. There is no scleral icterus. Ears: Tympanic membranes are intact, external auditory canals are clear. Nose: There is no deviation of nasal septum, there is no inflammation of the nasal mucous membrane. Mouth: Mucous membranes of the mouth are moist, tongue is moist. There are no ulcers. There is no bleeding from his throat. There is no redness of the oropharynx. There is no exudate. SKIN: There are no skin rashes. There are no skin lesions. There is no ecchymosis or petechiae. NECK: Supple. There is mild JVD present. There is a faint bruit in the right carotid. Left carotid scar is well healed. There is no bruit on the left carotid. There is no thyromegaly. Trachea is central. LUNGS: There is mild accessory muscles of respiration use. There are bilateral coarse crackles in the bases and also fine rales of CHF. There is no chest wall tenderness. On auscultation there is diminished air entry with prolonged inspiration without any rhonchi or wheezing. He has rales of pneumonia and CHF. HEART: S1 and S2 is heard. There is no S3 gallop. There is no S4 gallop present. There is a systolic murmur in the left sternal border and the apex. There is no rub. ABDOMEN: Soft, nontender. There is no hepatosplenomegaly. Bowel sounds are well heard. There are no tender areas or masses. EXTREMITIES: Femorals are diminished. There are no femoral bruits. Leg pulses are diminished. There is no pedal edema. There is no DVT or cellulitis. There is no calf tenderness. CENTRAL NERVOUS SYSTEM: The patient is conscious, slightly somnolent but moves all 4 extremities and he recognizes me. PSYCHIATRIC: The patient does appear to be slightly anxious, but he does not appear to be depressed. He is not agitated. LABORATORY DATA: The patient's sodium is 143, potassium 3.5, chloride is 111, CO2 is 22. The patient's BUN is 16, creatinine is 1.23, GFR is reduced at 56 mL. His glucose is 121. His calcium is 8.2. His liver function tests are normal. The patient's total protein is 5.2, albumin is 2.5. His free T3 is 2.15, TSH is 2.33. His initial CPK and CPK-MB were negative. His troponin I initially was 0.106, subsequently it went up to 0.693, the third set is awaited. The patient's potassium is low at 3.5. The patient's white count is 22,000. His hemoglobin is 13, hematocrit is 40.6. His MCV is 93 and his platelet count is 305,000. DIAGNOSTIC STUDIES: The patient's EKG shows ventricular paced rhythm. I do not see a previous. Occasionally he has AV pacing. IMAGING STUDIES: The patient's chest x-ray shows congestive heart failure and bibasilar pneumonia. IMPRESSION: 1. Congestive heart failure. 2. Acute on chronic systolic heart failure. 3. Bibasilar pneumonia. 4. Elevated troponin I, most likely secondary to the patient's congestive heart failure/pneumonia. Doubt that this is a non-ST elevation myocardial infarction. 5. Coronary artery disease, history of myocardial infarction. 6. Ischemic cardiomyopathy with severely reduced left ventricular ejection fraction of 20%. 7. History of biventricular automatic implantable cardioverter-defibrillator placement for ventricular tachycardia. 8. History of chronic obstructive pulmonary disease. 9. Coronary artery disease, history of stents after the myocardial infarction. 10. Hypertension. 11. Chronic kidney disease stage 3A. 12. Enlarged prostate with no symptoms on Flomax. 13. History of hyperlipidemia. 14. History of anxiety. 15. History of panic attacks. 16. History of gout. RECOMMENDATIONS: I would recommend continue the patient on IV Lasix. We will also continue the patient on the patient's Coreg, Plavix, aspirin, amiodarone, and also his current medications, including losartan. The patient has not had an echo in a long time, so we will get an echocardiogram once the patient's congestive heart failure is better controlled. TIME SPENT: Note 40 minutes spent on this patient with more than 50% of the time spent on direct patient care. This is a highly complex case with multiple comorbidities and involves high complex medical decision making. We will check and see when the patient last had an echocardiogram. Note the patient's medications were reviewed and case discussed with the other caregiving providers on the case. Discussed with the patient, the patient's and daughter. DICTATING PHYSICIAN: ALETA HOWARD M.D. [id number] PHY#: [id number] ID: [id number] JOB#: [id number] ACCT: [id number] cc:ALETA HOWARD M.D. > MTDD
[2016-11-17] MEDS: LANSOPRAZOLE 30 MG TAB.RAP.DR PO SCH (05:21)
[2016-11-17 05:43] LABS: ABSOLUTE BASOPHILS # (AUTO) 0.2 10^3/uL (0.0-0.2); ABSOLUTE EOSINOPHILS # (AUTO) 0.1 10^3/uL (0.0-0.6); ABSOLUTE LYMPHOCYTES (AUTO) 0.5 10^3/uL (0.5-4.7); ABSOLUTE MONOCYTES (AUTO) 0.8 10^3/uL (0.1-1.4); ABSOLUTE NEUT (AUTO) 12.7 10^3/uL (1.7-8.2); BASOPHILS % (AUTO) 1.5 % (0-2); EOSINOPHILS % (AUTO) 0.9 % (0-6); HEMATOCRIT 36.4 % (37.9-51.0); HEMOGLOBIN 11.6 g/dL (13.5-17.0); HGB HCT DIFFERENCE -1.6; LYMPHOCYTES % (AUTO) 3.4 % (13-45); MEAN CORPUSCULAR HEMOGLOBIN 29.9 pg (27.0-33.4); MEAN CORPUSCULAR HGB CONC 31.9 g/dL (32.0-36.0); MEAN CORPUSCULAR VOLUME 94 fl (80-97); MONOCYTES % (AUTO) 5.8 % (3-13); RED BLOOD COUNT 3.88 10^6/uL (4.35-5.55); RED CELL DISTRIBUTION WIDTH 18.7 % (11.5-14.0); SEGMENTED NEUTROPHILS % (AUTO) 88.4 % (42-78); WHITE BLOOD COUNT 14.4 10^3/uL (4.0-10.5)
[2016-11-17 06:03] LABS: ANION GAP 9 (5-19); BLOOD UREA NITROGEN 18 mg/dL (7-20); CALCIUM 7.9 mg/dL (8.4-10.2); CARBON DIOXIDE 25 mmol/L (22-30); CHLORIDE 108 mmol/L (98-107); CREATININE RESULT 1.28 mg/dL (0.52-1.25); GLUCOSE 115 mg/dL (75-110); PHOSPHORUS 4.4 mg/dL (2.5-4.5); POTASSIUM 3.8 mmol/L (3.6-5.0); SODIUM 142.1 mmol/L (137-145)
[2016-11-17] MEDS: ENOXAPARIN SODIUM INJ 40 MG/0.4 ML DISP.SYRIN SUBCUT SCH (08:16)
--- NOTE | 2016-11-17 08:40 | RADIOLOGY REPORT (SQ) ---
EXAM DESCRIPTION: CHEST SINGLE VIEW COMPLETED DATE/TIME: 11/17/2016 8:27 am REASON FOR STUDY: CHF COMPARISON: Chest films 09/15/2016, 11/04/2016, 11/16/2016 CT abdomen pelvis 11/04/2016 EXAM PARAMETERS: NUMBER OF VIEWS: One view. TECHNIQUE: Single frontal radiographic view of the chest acquired. RADIATION DOSE: NA LIMITATIONS: None. FINDINGS: LUNGS AND PLEURA: On today's study, there is a increase in the bilateral alveolar and inte rstitial edema as compared to prior film 11/16/2016 and 11/04/2016. Small bilateral pleural effusions are present, right greater than left, slightly more prominent than on previous studies. No pneumothorax. MEDIASTINUM AND HILAR STRUCTURES: No masses. Contour normal. HEART AND VASCULAR STRUCTURES: No cardiomegaly. Radiopaque coronary stents. BONES: No acute findings. HARDWARE: Left-sided pacemaker/defibrillator OTHER: No other significant finding. IMPRESSION: Increase in bilateral alveolar and interstitial edema compared to previous studies TECHNICAL DOCUMENTATION: JOB ID: [id number]
--- NOTE | 2016-11-17 10:01 | PDOC PROGRESS REPORT ---
Subjective Progress Note for:: 11/17/16 Subjective:: More awake and alert this morning. Patient able to respond to questions. He is on nasal cannula oxygen now. He is off BiPAP. No reported diarrhea. Speech therapy evaluated the patient recommending dysphagia diet with ground meats but spouse is refusing ground meats therefore patient was placed on chopped meats instead. Fluids were thickened.. Physical Exam Vital Signs: Temp Pulse Resp BP Pulse Ox 97.3 F 63 16 139/51 H 98 11/17/16 07:58 11/17/16 07:58 11/17/16 07:58 11/17/16 07:58 11/17/16 07:58 Intake & Output 11/16/16 11/17/16 11/18/16 06:59 06:59 06:59 Intake Total 65 Output Total 1100 Balance -1035 Weight 70.6 kg General appearance: PRESENT: no acute distress, other - Nasal cannula oxygen Head exam: PRESENT: normocephalic Eye exam: PRESENT: EOMI Mouth exam: PRESENT: moist, neck supple Neck exam: ABSENT: JVD Respiratory exam: PRESENT: decreased breath sounds - Bilateral, rhonchi - Minimal. ABSENT: wheezes Cardiovascular exam: PRESENT: RRR. ABSENT: gallop GI/Abdominal exam: PRESENT: normal bowel sounds, soft. ABSENT: distended Extremities exam: PRESENT: other - Trace lower extremity edema Neurological exam: PRESENT: alert, awake Skin exam: PRESENT: dry, warm. ABSENT: cyanosis Results Laboratory Results: 11/17/16 05:19 11/17/16 05:19 11/16/16 11/17/16 11/17/16 10:24 05:19 05:19 WBC 14.4 H RBC 3.88 L Hgb 11.6 L Hct 36.4 L MCV 94 MCH 29.9 MCHC 31.9 L RDW 18.7 H Plt Count 218 Seg Neutrophils % 88.4 H Lymphocytes % 3.4 L Monocytes % 5.8 Eosinophils % 0.9 Basophils % 1.5 Absolute Neutrophils 12.7 H Absolute Lymphocytes 0.5 Absolute Monocytes 0.8 Absolute Eosinophils 0.1 Absolute Basophils 0.2 Sodium 142.1 Potassium 3.8 Chloride 108 H Carbon Dioxide 25 Anion Gap 9 BUN 18 Creatinine 1.28 H Est GFR ( Amer) > 60 Est GFR (Non-Af Amer) 53 L Glucose 115 H Calcium 7.9 L Phosphorus 4.4 Magnesium 2.0 TSH 2.33 Free T3 pg/mL 2.15 L 11/16/16 11/16/16 11/16/16 10:24 10:24 15:55 Creatine Kinase 42 L Troponin I 0.693 0.538 11/16/16 11/16/16 11/16/16 15:55 22:44 22:44 Creatine Kinase 35 L 34 L Troponin I 0.379 Impressions: Chest X-Ray 11/17/16 08:00 IMPRESSION: Increase in bilateral alveolar and interstitial edema compared to previous studies Assessment & Plan - Diagnosis (1) Acute respiratory failure Qualifiers: Respiratory failure complication: hypoxia Qualified Code(s): J96.01 - Acute respiratory failure with hypoxia Is this a current diagnosis for this admission?: Yes (2) Systolic CHF, acute on chronic Is this a current diagnosis for this admission?: Yes (3) Leukocytosis Qualifiers: Leukocytosis type: unspecified Qualified Code(s): D72.829 - Elevated white blood cell count, unspecified Is this a current diagnosis for this admission?: Yes (4) Hypokalemia Is this a current diagnosis for this admission?: Yes (5) HBP (high blood pressure) Qualifiers: Hypertension type: essential hypertension Qualified Code(s): I10 - Essential (primary) hypertension Is this a current diagnosis for this admission?: Yes (6) Ischemic cardiomyopathy Is this a current diagnosis for this admission?: Yes (7) Anemia Qualifiers: Anemia type: unspecified type Qualified Code(s): D64.9 - Anemia, unspecified Is this a current diagnosis for this admission?: Yes (8) CKD (chronic kidney disease), stage III Is this a current diagnosis for this admission?: Yes (9) Dyslipidemia Is this a current diagnosis for this admission?: Yes (10) RLS (restless legs syndrome) Is this a current diagnosis for this admission?: Yes - Time Time Spent with patient: 25-34 minutes - Plan Summary Plan Summary: Case discussed with cardiology service. Unlikely non-ST elevation myocardial infarction. Continue antiplatelet therapy. Elevated troponin reportedly due to CHF and possible pneumonia. I will put the patient on ciprofloxacin and Flagyl for aspiration. We will add lactobacillus as well. We will add Zaroxolyn and recheck chest x-ray in 48 hours. Begin physical therapy as family wishes. Continue supportive care.
[2016-11-17] MEDS ORDERED: ONDANSETRON HCL INJ/PF 4 MG/2 ML SDV IV PRN (10:02)
[2016-11-17] MEDS: CIPROFLOXACIN HCL 500 MG TABLET PO SCH ×2 (10:37→21:35)
[2016-11-17] MEDS: DOCUSATE SODIUM 100 MG CAPSULE PO SCH ×2 (10:37→17:00)
[2016-11-17] MEDS: ASPIRIN 81 MG TABLET, CHEWABLE PO SCH (10:38)
[2016-11-17] MEDS: LOSARTAN POTASSIUM 25 MG TABLET PO SCH ×2 (10:38→21:36)
[2016-11-17] MEDS: METOLAZONE 5 MG TABLET PO SCH ×2 (10:38→21:36)
[2016-11-17] MEDS: CLOPIDOGREL BISULFATE 75 MG TABLET PO SCH (10:38)
[2016-11-17] MEDS: LACTOBACILLUS ACIDOPHILUS 250 MG TAB PO SCH ×2 (10:38→17:23)
[2016-11-17] MEDS: FUROSEMIDE INJ/PF 40 MG/4 ML SDV IV SCH ×3 (10:39→21:37)
[2016-11-17] MEDS: CARVEDILOL 12.5 MG TABLET PO SCH ×2 (10:39→21:36)
[2016-11-17] MEDS: METRONIDAZOLE 500 MG TABLET PO SCH ×3 (14:17→23:55)
[2016-11-17] MEDS: OXYCODONE HCL SR 10 MG TABLET PO SCH ×2 (17:23→21:34)
--- NOTE | 2016-11-17 20:13 | PROGRESS NOTE E ---
Progress Note NAME: STORM HERNDON : 1930 AGE: 86Y DATE: 11/17/2016 ROOM: 336 SUBJECTIVE: The patient is less short of breath, but still has some shortness of breath. There is no accessory muscle of respiration in use. The patient has some orthopnea and PND, but leg edema is almost gone, there is only trace leg edema. The patient denies any palpitations, chest pain or discomfort. There are no palpitations. There are no arrhythmias seen on the monitor. There is no firing of his AICD. There is no TIA or CVA symptoms. The patient denies any cough or sputum production. There are no fever, chills or rigors. OBJECTIVE: GENERAL: On examination, the patient appears to be chronically ill and malnourished. He is a little more alert compared to yesterday. He is off the nonrebreather and he is on nasal cannula. VITAL SIGNS: He is afebrile with a temperature of 97.9 degrees Fahrenheit, pulse is 68 beats per minute, blood pressure 149/45, respirations 20 per minute, O2 saturations are 98% on 4.5L of nasal cannula. HEENT: Head is atraumatic and normocephalic. Eyes, pupils are equal, round, regular, reactive to light and accommodation. Extraocular movements are normal. There is no conjunctival pallor. There is no scleral icterus. Ears, tympanic membranes are intact. External auditory canals are clear. Nose, there is no deviation of the nasal septum. The nasal mucosa and mucous membranes of the mouth are moist. Tongue is moist. There are no ulcers. There is no bleeding from this throat. There is no redness of the oropharynx. SKIN: There are no skin rashes. There are no skin lesions. There is no ecchymosis or petechiae. NECK: Supple. There is still some mild JVD present. There is a faint bruit in the right carotid. Left carotid scar is well healed. There is no bruit on the left carotid. There is no thyromegaly. Trachea is central. LUNGS: Show no accessory muscles of respiration used today. The patient is on nasal cannula at 4.5L per minute of oxygen. There are bibasilar crackles and rales of CHF still, but less than yesterday. There is diminished air entry and prolonged expiration without any rhonchi or wheezing. There is hyperresonance on percussion. HEART: S1 and S2 are heard. There is no S3 gallop. There is no S4 gallop. There is a systolic murmur at the left sternal border at the apex. There is no rub. ABDOMEN: Soft, nontender. There is no hepatosplenomegaly. Bowel sounds are well heard. There are no tender areas or masses. EXTREMITIES: Femorals are diminished. There are no femoral bruits. There is trace pedal edema. There is no cyanosis or clubbing. There is no DVT or cellulitis. There is no calf tenderness. CENTRAL NERVOUS SYSTEM: The patient is conscious, less somnolent than yesterday, but moves all 4 extremities and recognizes me. PSYCHIATRIC: The patient does appear to be slightly anxious, but he does not appear to be depressed. He is not agitated. INTAKE AND OUTPUT: The patient's 24-hour intake 165 mL and output is 1650 mL. IMAGING: The patient's chest x-ray still shows vascular congestion and bilateral alveolar and interstitial edema which they say is increased, but clinically the patient seems to be much improved. The monitor shows atrioventricular paced rhythm. LABORATORY: The patient's white count is 14,400, hemoglobin 7.6, hematocrit 36.4, platelet count of 218,000. Sodium 142.1, potassium normal at 3.8, chloride 108, CO2 of 25, BUN 18, creatinine 1.28, GFR is reduced at 53 mL which is chronic kidney disease stage 3a, glucose 115, calcium 7.9, phosphorus 4.4, magnesium 2.0. Troponin-I had trended down yesterday to 0.379. Will recheck tomorrow. IMPRESSION: 1. CONGESTIVE HEART FAILURE. 2. ACUTE ON CHRONIC SYSTOLIC HEART FAILURE. 3. BIBASILAR PNEUMONIA. 4. ELEVATED TROPONIN-I, MOST LIKELY SECONDARY TO PATIENT'S CONGESTIVE HEART FAILURE/PNEUMONIA, DOUBT THAT THIS IS A NON-ST ELEVATION UT. Note the troponin is trending down. We will recheck the patient's troponin-I. 5. CORONARY ARTERY DISEASE, HISTORY OF MYOCARDIAL INFARCTION, NO ANGINAL SYMPTOMS. 6. ISCHEMIC CARDIOMYOPATHY WITH SEVERELY REDUCED LEFT VENTRICULAR EJECTION FRACTION OF 20%. 7. HISTORY OF BIVENTRICULAR AUTOMATIC IMPLANTABLE CARDIOVERTER-DEFIBRILLATOR PLACEMENT FOR VENTRICULAR TACHYCARDIA. NO RECURRENCE OF VENTRICULAR TACHYCARDIA. NO FIRING OF AICD. 8. HISTORY OF CHRONIC OBSTRUCTIVE PULMONARY DISEASE, SEEMS TO BE STABLE, BUT THE PATIENT DOES HAVE PNEUMONIA BIBASILAR. 9. CORONARY ARTERY DISEASE, HISTORY OF STENTS AFTER MYOCARDIAL INFARCTION. NO ANGINAL SYMPTOMS. 10. HYPERTENSION. 11. CHRONIC KIDNEY DISEASE STAGE 3A. 12. ENLARGED PROSTATE WITH NO SYMPTOMS ON FLOMAX. 13. HISTORY OF HYPERLIPIDEMIA. 14. HISTORY OF ANXIETY. 15. HISTORY OF PANIC ATTACKS. 16. HISTORY OF GOUT. RECOMMENDATIONS: 1. Will increase the patient's Lasix to 40 mg IV every 8 hours. 2. Continue Coreg at 12.5 mg p.o. every 12 hours. 3. Continue ciprofloxacin 500 mg p.o. every 12 hours. 4. Continue Plavix. 5. Continue amiodarone. 6. Continue allopurinol. 7. Continue respiratory treatments. 8. Note that the patient is also on Flagyl 500 mg p.o. every 6 hours; he is on metolazone 5 mg p.o. every 12 hours, will continue that. He is on Flomax 0.4 mg p.o. nightly. He is also on atorvastatin 10 mg p.o. nightly. He is on aspirin 81 mg p.o. daily. 9. Would recommend that repeat the patient's echo tomorrow. Will continue antibiotics. Continue current treatment. 10. Continue with losartan 25 mg p.o. every 12 hours. Will try to increase the losartan to 50 mg p.o. every 12 hours since the patient's blood pressure is stable. 11. TIME SPENT: Note, 30 minutes spent on this patient with more than 50% of the time spent on direct patient care. The patient's medications were reviewed and adjusted. Discussed with other caregiving providers on the case. Discussed with the patient and the patient's . Note that the patient is a DNR, the is his surrogate healthcare decision maker. Note, this is a patient with multiple comorbidities and status coronary artery disease with ischemic cardiomyopathy with severely reduced LV ejection fraction, COPD, pneumonia, and hence highly complex decision making involved in the care of this patient. Discussed with the hospitalist taking care of the patient. Will follow with you. DICTATING PHYSICIAN: ALETA HOWARD M.D. [id number] [id number] ID: [id number] JOB#: [id number] ACCT: [id number] cc: >
[2016-11-17] MEDS: ATORVASTATIN CALCIUM 10 MG TABLET PO SCH (21:35)
[2016-11-17] MEDS: ALLOPURINOL 100 MG TABLET PO SCH (21:36)
[2016-11-17] MEDS: AMIODARONE HCL 200 MG TABLET PO SCH (21:36)
[2016-11-17] MEDS: TAMSULOSIN HCL 0.4 MG CAP.SR.24H PO SCH (21:37)
[2016-11-18] MEDS: LANSOPRAZOLE 30 MG TAB.RAP.DR PO SCH (06:18)
[2016-11-18] MEDS: METRONIDAZOLE 500 MG TABLET PO SCH ×4 (06:18→23:15)
[2016-11-18] MEDS: FUROSEMIDE INJ/PF 40 MG/4 ML SDV IV SCH ×3 (06:18→21:29)
[2016-11-18 06:20] LABS: ANION GAP 10 (5-19); BLOOD UREA NITROGEN 18 mg/dL (7-20); CALCIUM 8.5 mg/dL (8.4-10.2); CARBON DIOXIDE 30 mmol/L (22-30); CHLORIDE 103 mmol/L (98-107); CREATININE RESULT 1.35 mg/dL (0.52-1.25); GLUCOSE 135 mg/dL (75-110); SODIUM 142.5 mmol/L (137-145)
[2016-11-18 06:30] LABS: POTASSIUM 2.8 mmol/L (3.6-5.0)
[2016-11-18] MEDS ORDERED: POTASSIUM CHLORIDE 20 MEQ/15 ML UDCUP ONE (07:07)
[2016-11-18] MEDS: POTASSIUM CHLORIDE 20 MEQ/15 ML UDCUP PO SCH ×4 (07:14→12:16)
[2016-11-18] MEDS: ENOXAPARIN SODIUM INJ 40 MG/0.4 ML DISP.SYRIN SUBCUT SCH (08:11)
[2016-11-18] MEDS: LACTOBACILLUS ACIDOPHILUS 250 MG TAB PO SCH ×2 (09:45→17:45)
[2016-11-18] MEDS: CLOPIDOGREL BISULFATE 75 MG TABLET PO SCH (09:46)
[2016-11-18] MEDS: LOSARTAN POTASSIUM 25 MG TABLET PO SCH ×2 (09:46→21:26)
[2016-11-18] MEDS: DOCUSATE SODIUM 100 MG CAPSULE PO SCH ×2 (09:46→17:45)
[2016-11-18] MEDS: CARVEDILOL 12.5 MG TABLET PO SCH (09:46)
[2016-11-18] MEDS: ASPIRIN 81 MG TABLET, CHEWABLE PO SCH (09:47)
[2016-11-18] MEDS: METOLAZONE 5 MG TABLET PO SCH (09:47)
[2016-11-18] MEDS: CIPROFLOXACIN HCL 500 MG TABLET PO SCH ×2 (09:47→21:28)
[2016-11-18] MEDS ORDERED: OXYCODONE HCL SR 10 MG TABLET PO SCH (10:21)
[2016-11-18 10:28] LABS: ADD ON TESTING BLD IN LAB ACKNOWLEDGE
--- NOTE | 2016-11-18 10:28 | PDOC PROGRESS REPORT ---
Subjective Progress Note for:: 11/18/16 Subjective:: The patient reportedly without any respiratory distress, temperature spikes, nausea or vomiting, diarrhea at this time. Patient however more confused and sleepy as reported. Patient was resumed on oxycodone for restless leg syndrome as per family request. Physical Exam Vital Signs: Temp Pulse Resp BP Pulse Ox 97.3 F 59 L 20 138/59 H 100 11/18/16 07:59 11/18/16 07:59 11/18/16 07:59 11/18/16 07:59 11/18/16 07:59 Intake & Output 11/17/16 11/18/16 11/19/16 06:59 06:59 06:59 Intake Total 65 307 Output Total 1100 2300 -1034 Weight 70.6 kg 69.9 kg General appearance: PRESENT: no acute distress, thin Head exam: PRESENT: normocephalic Eye exam: PRESENT: conjunctiva pale Mouth exam: PRESENT: moist, neck supple Respiratory exam: PRESENT: clear to auscultation sheila - Anteriorly bilateral. ABSENT: rhonchi, wheezes Cardiovascular exam: PRESENT: RRR. ABSENT: gallop GI/Abdominal exam: PRESENT: soft. ABSENT: distended, tenderness Extremities exam: PRESENT: other - Trace lower extremity edema Neurological exam: PRESENT: altered - Lethargic but arousable Psychiatric exam: ABSENT: agitated Focused psych exam: ABSENT: restlessness Results Laboratory Results: 11/17/16 05:19 11/18/16 05:30 11/18/16 05:30 Sodium 142.5 Potassium 2.8 L* Chloride 103 Carbon Dioxide 30 Anion Gap 10 BUN 18 Creatinine 1.35 H Est GFR ( Amer) > 60 Est GFR (Non-Af Amer) 50 L Glucose 135 H Calcium 8.5 11/16/16 11/16/16 11/16/16 10:24 10:24 15:55 Creatine Kinase 42 L Troponin I 0.693 0.538 11/16/16 11/16/16 11/16/16 15:55 22:44 22:44 Creatine Kinase 35 L 34 L Troponin I 0.379 Impressions: Chest X-Ray 11/17/16 08:00 IMPRESSION: Increase in bilateral alveolar and interstitial edema compared to previous studies Assessment & Plan - Diagnosis (1) Acute respiratory failure Qualifiers: Respiratory failure complication: hypoxia Qualified Code(s): J96.01 - Acute respiratory failure with hypoxia Is this a current diagnosis for this admission?: Yes (2) Systolic CHF, acute on chronic Is this a current diagnosis for this admission?: Yes (3) Leukocytosis Qualifiers: Leukocytosis type: unspecified Qualified Code(s): D72.829 - Elevated white blood cell count, unspecified Is this a current diagnosis for this admission?: Yes (4) Hypokalemia Is this a current diagnosis for this admission?: Yes (5) HBP (high blood pressure) Qualifiers: Hypertension type: essential hypertension Qualified Code(s): I10 - Essential (primary) hypertension Is this a current diagnosis for this admission?: Yes (6) Ischemic cardiomyopathy Is this a current diagnosis for this admission?: Yes (7) Anemia Qualifiers: Anemia type: unspecified type Qualified Code(s): D64.9 - Anemia, unspecified Is this a current diagnosis for this admission?: Yes (8) CKD (chronic kidney disease), stage III Is this a current diagnosis for this admission?: Yes (9) Dyslipidemia Is this a current diagnosis for this admission?: Yes (10) RLS (restless legs syndrome) Is this a current diagnosis for this admission?: Yes - Time Time Spent with patient: 25-34 minutes - Plan Summary Plan Summary: We are going to decrease the patient's oxycodone. I will try him on Requip at bedtime. In the meantime Lasix has been increased and creatinine trending up. We will discontinue Zaroxolyn. 2D echocardiogram is pending. Continue supportive care.
[2016-11-18] MEDS: POTASSI CL 20 MEQ/50 ML RIDER 50 ML IV SCH ×3 (10:35→15:36)
[2016-11-18 10:38] LABS: MAGNESIUM 2.1 mg/dL (1.6-2.3)
--- NOTE | 2016-11-18 19:17 | XCELERA REPORT ---
[address] [address] Transthoracic Echocardiogram Report Name: STORM HERNDON Age: 86 yrs Gender: Male : 1930 Patient Status: Inpatient Patient Location: 3S\S\330\S\A Study Date: 11/18/2016 10:16 AM Height: 64 in Weight: 155 lb BSA: 1.8 m2 Procedure: A two-dimensional transthoracic echocardiogram with color flow and Doppler was performed. The study was technically adequate with some images being suboptimal in quality. Reason For Study: CHF / CARDIOMYOPATHY History: CHF / CARDIOMYOPATHY. Ordering Physician: ANNAMARIA HOWARD Performed By: Eden Soni Interpretation Summary The left ventricle is moderately dilated. There is normal left ventricular wall thickness. LV EF is 15% to 20% Left ventricular systolic function is severely reduced. Doppler measurements suggest normal left ventricular diastolic function There is severe global hypokinesis of the left ventricle. There is no thrombus. The right ventricle is grossly normal size. There is a pacemaker lead in the right ventricle. The right atrium is normal. The left atrium is mildly dilated. A patent foramen ovale is present. There is no evidence of mitral valve prolapse. There is no vegetation seen on the mitral valve. There is no mitral valve stenosis. There is a severe amount of mitral regurgitation There is pulmonary vein flow reversal present. There is mild aortic stenosis There is a peak gradient of 19 mm of Hg. No aortic regurgitation is present. There is no tricuspid stenosis. There is a mild amount of tricuspid regurgitation There is moderate pulmonary hypertension by echo RVSP is 54 mm of Hg , with RA mean of 10. There is no pulmonic valvular stenosis. There is a mild amount of pulmonic regurgitation There is no pericardial effusion. MMode/2D Measurements \T\ Calculations RVDd: 3.3 cm LVIDd: 5.0 cm FS: 11.5 % Ao root diam: 2.6 cm IVSd: 0.67 cm LVIDs: 4.5 cm EDV(Teich): 120.6 ml LVPWd: 0.81 cm ESV(Teich): 90.7 ml Ao root area: 5.4 cm2 EF(Teich): 24.8 % LA dimension: 4.1 cm Doppler Measurements \T\ Calculations MV E max jamila: MV P1/2t max jamila: Ao V2 max: LV V1 max P.7 cm/sec 101.7 cm/sec 216.1 cm/sec 2.3 mmHg MV A max jamila: MV P1/2t: 71.9 msec Ao max PG: LV V1 max: 44.9 cm/sec 18.7 mmHg 76.4 cm/sec MV E/A: 2.3 MVA(P1/2t): 3.1 cm2 MV dec slope: 414.5 cm/sec2 MV dec time: 0.25 sec PA V2 max: PI end-d jamila: TR max jamila: 83.4 cm/sec 145.5 cm/sec 331.2 cm/sec PA max P.8 mmHg TR max P.9 mmHg Left Ventricle The left ventricle is moderately dilated. There is normal left ventricular wall thickness. LV EF is 15% to 20%. Left ventricular systolic function is severely reduced. Doppler measurements suggest normal left ventricular diastolic function. There is severe global hypokinesis of the left ventricle. There is no thrombus. There is no ventricular septal defect visualized. Right Ventricle The right ventricle is grossly normal size. The right ventricle is not well visualized secondary to technical limitations. There is a pacemaker lead in the right ventricle. Atria The right atrium is normal. The left atrium is mildly dilated. A patent foramen ovale is present. Mitral Valve There is mild to moderate mitral annular calcification. There is no evidence of mitral valve prolapse. There is no vegetation seen on the mitral valve. There is no mitral valve stenosis. There is a severe amount of mitral regurgitation. There is pulmonary vein flow reversal present. Aortic Valve There is no aortic valvular vegetation. There is mild aortic stenosis. There is a peak gradient of 19 mm of Hg. No aortic regurgitation is present. Tricuspid Valve There is no tricuspid stenosis. There is a mild amount of tricuspid regurgitation. There is moderate pulmonary hypertension by echo. RVSP is 54 mm of Hg , with RA mean of 10. Pulmonic Valve There is no pulmonic valvular stenosis. There is a mild amount of pulmonic regurgitation. Great Vessels The aortic root is normal size. Effusions There is no pericardial effusion. : ANNAMARIA HOWARD > Annamaria Howard
[2016-11-18] MEDS: AMIODARONE HCL 200 MG TABLET PO SCH (21:25)
[2016-11-18] MEDS: ALLOPURINOL 100 MG TABLET PO SCH (21:25)
[2016-11-18] MEDS: ATORVASTATIN CALCIUM 10 MG TABLET PO SCH (21:26)
[2016-11-18] MEDS: TAMSULOSIN HCL 0.4 MG CAP.SR.24H PO SCH (21:26)
[2016-11-18] MEDS ORDERED: ROPINIROLE HCL 1 MG TABLET PO SCH (22:00)
[2016-11-18] MEDS: METOPROLOL SUCCINATE 25 MG TAB.SR.24H PO SCH (23:05)
--- NOTE | 2016-11-18 23:33 | PROGRESS NOTE E ---
STORM HERNDON MR # [id number]. DATE OF PROGRESS NOTE: 11/18/2016 SUBJECTIVE: Note: Earlier the patient was seen in the morning at which time the patient was very sleepy and would not wake up, but he seemed to be comfortable. The patient was again seen later in the morning. At that time the patient was still a little drowsy but able to talk and states that he has still some PND and orthopnea and leg edema is much improved. He denies any chest pain. There is no firing of his AICD. There is no arrhythmia seen on the monitor. There are no palpitations. He denies any cough or sputum production. On examination later this morning, the patient looks chronically ill and malnourished but just only very mildly short of breath. He is now on nasal 02 at 3 L/min. OBJECTIVE: VITAL SIGNS: He is afebrile with a temperature of 97.7 degrees Fahrenheit, pulse is 60 beats per minute, blood pressure 127/63, respirations are 18 per minute, O2 saturations are 98% on 2 L nasal cannula. HEENT: Head is atraumatic and normocephalic. Eyes, pupils are equal, round, regular, reactive to light and accommodation. Extraocular movements are normal. There is no conjunctival pallor. There is no scleral icterus. ENT is negative. NECK: Supple. There is still some mild JVD present. There is a faint bruit in the right carotid. Left carotid scar is well healed. There is no bruit on the left carotid. There is no thyromegaly. Trachea is central. LUNGS: Show no accessory muscles of respiration used. The patient is on nasal cannula at 3 L per minute. There are both coarse and fine rales of pneumonia and CHF in the bases. There is diminished air entry and prolonged expiration. There is no dullness. There is no wheezing. There is no rhonchi. On percussion there is hyperresonance. HEART: S1 and S2 are heard. There is no S3 gallop. There is no S4 gallop. There is a systolic murmur at the left sternal border and the apex. There is a murmur of significant mitral regurgitation heard in the apex with radiation to the left axilla. There is no rub. ABDOMEN: Soft, nontender. There is no hepatosplenomegaly. Bowel sounds are well heard. There are no tender areas or masses. EXTREMITIES: Femorals are diminished. There are no femoral bruits. There is no pedal edema. There is no cyanosis or clubbing. There is no DVT or cellulitis. There is no calf tenderness. CENTRAL NERVOUS SYSTEM: The patient is conscious but a little somnolent but moves all 4 extremities and recognizes me. PSYCHIATRIC: The patient appears to be slightly anxious and depressed. He is not agitated. INTAKE AND OUTPUT: The patient's 24-hour intake has been 307 mL and output is 2300 mL. DIAGNOSTIC DATA: The patient's echocardiogram shows moderately dilated LV with severe global hypokinesis with ejection fraction of 15% to 20%. There is severe mitral regurgitation with pulmonary vein flow reversal. There is mild enlargement of the left atrium. There is moderate pulmonary hypertension with right ventricular systolic pressure of 54 mmHg. There is no pericardial effusion. This has been discussed with the patient and the patient's . LABORATORY: The patient's laboratory data showed sodium 142.5, potassium 2.8 (this is being replaced by p.o. and IV potassium chloride), chloride is 103, CO2 is 30, the patient's BUN is 19, creatinine 1.35, GFR is reduced at 50 mL which is CKD stage 3 and his calcium 8.5, glucose is 135. His magnesium is 2.1. Note that his troponin I on 11/16 was 0.379 and we will recheck it. IMPRESSION: 1. CONGESTIVE HEART FAILURE. Improving. Continue diuretics at Lasix 40 mg IV q.8 h. and continue metolazone. 2. ACUTE ON CHRONIC SYSTOLIC HEART FAILURE DUE TO CARDIOMYOPATHY. Note that the patient is on Coreg, continue this. Also the patient is on Losartan which has been increased to 50 mg p.o. q.12 h. Note that the patient is also on metronidazole for diarrhea, although C. difficile is not back up. 3. BIBASILAR PNEUMONIA. Would recommend continuing antibiotics. 4. ELEVATED TROPONIN-I, MOST LIKELY SECONDARY TO PATIENT'S CONGESTIVE HEART FAILURE AND PNEUMONIA. Doubt that this is a non-ST elevation CO. The troponin was trending down. We will recheck the patient's troponin-I in the morning. 5. 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 No anginal symptoms. 6. ISCHEMIC CARDIOMYOPATHY WITH SEVERELY REDUCED LEFT VENTRICULAR EJECTION FRACTION OF 20%. The patient is on ARB, beta-abdiel and aspirin and Plavix. 7. 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 No recurrence of ventricular tachycardia. No firing of AICD. No atrial arrhythmia; patient is in AV paced rhythm on the monitor. 8. HISTORY OF COPD. Seems to be stable. 9. CORONARY ARTERY DISEASE WITH HISTORY OF STENTS AFTER MYOCARDIAL INFARCTION. No anginal symptoms. Continue beta-blockers and aspirin. 10. HYPERTENSION. Blood pressure well controlled. 11. CHRONIC KIDNEY DISEASE STAGE 3A. Watch the patient's renal function, which would deteriorate due to over-diuresis. 12. ENLARGED PROSTATE WITH NO SYMPTOMS ON FLOMAX. 13. HISTORY OF HYPERLIPIDEMIA. 14. HISTORY OF ANXIETY. 15. HISTORY OF PANIC ATTACKS. 16. HISTORY OF GOUT. Note that the patient is on atorvastatin. 17. HYPOKALEMIA. 18. RESTLESS LEG SYNDROME. Note that the patient was given oxycodone for this and that has made the patient drowsy. Will recommend switch to Requip. RECOMMENDATIONS: 1. Continue the Lasix at 40 mg IV every 8 hours. 2. Watch his BUN and creatinine. 3. Continue Coreg at 12.5 mg p.o. every 12 hours. 4. Will try to change the Coreg to Toprol XL 25 mg p.o. q.12 h. since the patient has COPD and this might be better tolerated with the patient's COPD than Coreg. 5. Continue ciprofloxacin. 6. Continue the patient on metronidazole for his diarrhea assuming that is C. difficile although the results are not back. 7. Continue aspirin and Plavix. 8. Continue amiodarone. 9. Continue allopurinol. 10. Continue respiratory treatments. 11. Note that the patient's echo was repeated and the results are above. 12. Continue antibiotics. Will recheck a chest x-ray for his pneumonia. 13. Continue with Losartan at 50 mg p.o. every 12 hours since the patient's blood pressure is stable. TIME SPENT: Note, 30 minutes spent on this patient with more than 50% of the time spent on direct patient care. Also discussion with patient's telling her that the patient's condition is very guarded and prognosis is not very good. I also discussed this case with his primary care attending, Dr. Cassia Harry. Note, the medications were reviewed and the medications are being adjusted. The patient has multiple comorbidities and has acute systolic heart failure and also pneumonia and also has renal failure. The patient has a history of coronary artery disease. The patient also has severe mitral regurgitation by echocardiography; hence, this is a highly complex medical decision making needed for this patient. We will recheck the patient's chest x-ray in the a.m. and recheck the patient's troponin. We will recheck the patient's labs. The patient is still very serious and his prognosis is guarded. Note, his medications have been reviewed and medications have been adjusted. We will watch what the BUN and creatinine prior to starting the patient on spironolactone. Continue metolazone also.Patient and thinking of making him a home hospice.Hence will sign off. Thanking you. DICTATING PHYSICIAN: ALETA HOWARD M.D. [id number] DT: 0000 PHY#: [id number] ID: [id number] JOB#: [id number] ACCT: [id number] cc: > JUDITD
[2016-11-19] MEDS ORDERED: CEFTRIAXONE 1 GM/D5W RTU 0 GM/0 ML RTUPB IV ONE (00:54)
[2016-11-19] MEDS: METRONIDAZOLE 500 MG TABLET PO SCH ×2 (06:26→12:51)
[2016-11-19] MEDS: LANSOPRAZOLE 30 MG TAB.RAP.DR PO SCH (06:26)
[2016-11-19] MEDS: FUROSEMIDE INJ/PF 40 MG/4 ML SDV IV SCH (06:26)
[2016-11-19 06:44] LABS: ANION GAP 7 (5-19); BLOOD UREA NITROGEN 16 mg/dL (7-20); CALCIUM 8.2 mg/dL (8.4-10.2); CARBON DIOXIDE 33 mmol/L (22-30); CHLORIDE 99 mmol/L (98-107); CREATININE RESULT 1.39 mg/dL (0.52-1.25); GLUCOSE 100 mg/dL (75-110); POTASSIUM 3.8 mmol/L (3.6-5.0); SODIUM 138.8 mmol/L (137-145)
[2016-11-19] MEDS: ENOXAPARIN SODIUM INJ 40 MG/0.4 ML DISP.SYRIN SUBCUT SCH (08:47)
--- NOTE | 2016-11-19 09:02 | RADIOLOGY REPORT (SQ) ---
EXAM DESCRIPTION: CHEST SINGLE VIEW COMPLETED DATE/TIME: 11/19/2016 8:19 am REASON FOR STUDY: CHF /Pneumonia COMPARISON: 09/26/2016, 10/22/2016, 11/06/2016, 11/16/2016, 11/17/2016 EXAM PARAMETERS: NUMBER OF VIEWS: One view. TECHNIQUE: Single frontal radiographic view of the chest acquired. RADIATION DOSE: NA LIMITATIONS: None. FINDINGS: LUNGS AND PLEURA: Small bilateral pleural effusions are present in the right and left cost ophrenic sulci, similar compared to 11/17/2016. Pulmonary vascular congestion is improved compared to previous studies. Decrease in alveolar and int erstitial edema compared to previous studies. No dense consolidation worrisome for pneumonia. Minimal left retrocardiac atelectasis. No pneumothorax MEDIASTINUM AND HILAR STRUCTURES: No masses. Contour normal. HEART AND VASCULAR STRUCTURES: Stable mild cardiomegaly with coronary stents. BONES: No acute findings. HARDWARE: Left-sided pacemaker/defibrillator OTHER: No other significant finding. IMPRESSION: Decrease in pulmonary vascular congestion and pulmonary edema. Small bilateral pleural effusions are present, similar compared to 11/17/2016 TECHNICAL DOCUMENTATION: JOB ID: [id number]
[2016-11-19] MEDS: CIPROFLOXACIN HCL 500 MG TABLET PO SCH (10:36)
[2016-11-19] MEDS: LOSARTAN POTASSIUM 25 MG TABLET PO SCH (10:36)
[2016-11-19] MEDS: DOCUSATE SODIUM 100 MG CAPSULE PO SCH (10:36)
[2016-11-19] MEDS: METOPROLOL SUCCINATE 25 MG TAB.SR.24H PO SCH (10:36)
[2016-11-19] MEDS: ASPIRIN 81 MG TABLET, CHEWABLE PO SCH (10:36)
[2016-11-19] MEDS: LACTOBACILLUS ACIDOPHILUS 250 MG TAB PO SCH (10:36)
[2016-11-19] MEDS: CLOPIDOGREL BISULFATE 75 MG TABLET PO SCH (10:36)
[2016-11-19 15:58] VITALS: BP 142/61
--- NOTE | 2016-11-19 15:59 | PDOC DISCHARGE SUMMARY ---
General - Admit/Disc Date/PCP Admission Date/Primary Care Provider: 11/16/16 09:05 JONO CASEY MD Discharge Date: 11/19/16 - Discharge Diagnosis (1) Acute respiratory failure Is this a current diagnosis for this admission?: Yes (2) Systolic CHF, acute on chronic Is this a current diagnosis for this admission?: Yes (3) Leukocytosis Is this a current diagnosis for this admission?: Yes (4) Hypokalemia Is this a current diagnosis for this admission?: Yes (5) HBP (high blood pressure) Is this a current diagnosis for this admission?: Yes (6) Ischemic cardiomyopathy Is this a current diagnosis for this admission?: Yes (7) Anemia Is this a current diagnosis for this admission?: Yes (8) CKD (chronic kidney disease), stage III Is this a current diagnosis for this admission?: Yes (9) Dyslipidemia Is this a current diagnosis for this admission?: Yes (10) RLS (restless legs syndrome) Is this a current diagnosis for this admission?: Yes - Additional Information Resuscitation Status: Do Not Resuscitate Discharge Diet: Cardiac, Other (Comments) - Mechanical soft with ground meats Discharge Activity: Activity As Tolerated, Balance Activity w/Rest, Weigh Daily Home Medications: Allopurinol [Zyloprim 100 mg Tablet] 100 mg PO QHS 11/04/16 Amiodarone HCl [Cordarone 200 mg Tablet] 200 mg PO QHS 11/04/16 Aspirin [Aspirin 81 mg Chewable Tablet] 81 mg PO DAILY 11/04/16 Atorvastatin Calcium [Lipitor 10 mg Tablet] 10 mg PO QHS 11/04/16 Carvedilol [Coreg 12.5 mg Tablet] 12.5 mg PO Q12 11/04/16 Clopidogrel Bisulfate [Plavix 75 mg Tablet] 75 mg PO QPM 11/04/16 Finasteride [Proscar 5 mg Tablet] 5 mg PO DAILY 11/04/16 Losartan Potassium [Cozaar 25 mg Tablet] 25 mg PO Q12 11/04/16 Pantoprazole Sodium [Protonix] 40 mg PO QAM 11/04/16 Tamsulosin HCl [Flomax 0.4 mg Cap.sr] 0.4 mg PO QHS 11/04/16 Iron Polysaccharide Complex [Iferex 150] 150 mg PO DAILY 11/16/16 Linaclotide [Linzess] 290 mcg PO DAILY 11/16/16 Nitroglycerin [Nitrostat 0.4 mg (1/150 Gr) Tabs 25/Bottle] 1 tab SL Q5MP PRN Oxycodone HCl [Oxycontin Sr 10 mg Tablet] 10 mg PO HSP PRN 11/16/16 Furosemide [Lasix] 40 mg PO BID #80 tablet 11/19/16 Additional Information: Home Hospice for comfort care History of Present Illness Patient complains of: SOB History of Present Illness: STORM HERNDON is a 86 year old male with a history of congestive heart failure, and ejection fraction of 20% woke up early this morning because of acute shortness of breath. Patient was hypoxic and brought to the emergency room for evaluation. WBC was noted to be elevated at 20,000. Chest x-ray revealed pulmonary vascular congestion and bibasilar infiltrates. Patient was given 20 mg of Lasix as well as vancomycin and Zosyn. Patient was recently treated in the hospital 1-2 weeks ago for pneumonia. Patient was just discharged home 2 days ago to a subacute facility where he fell and sent to the emergency room. No reported shortness of breath coughing chills or fever at that time. Family decided to bring the patient back home rather than to the long-term facility. Patient was doing well other than sleeping most of the time according to the family until early this morning upon waking up. Patient was given intravenous fentanyl in the emergency room and therefore unable to provide history due to sedation. Information provided by his who is at bedside. History unobtainable from the patient at this time. Hospital Course Hospital Course: Patient was admitted to [facility]. Patient was made DNR by the family. He was begun on intravenous Lasix and oral Zaroxolyn. Cardiology was consulted due to to elevated troponin. Impression of heart failure rather than ACS was made causing the slight elevation. Follow-up serial x-rays showed significant improvement of the infiltrates. Patient noted with pleural effusion as well. Possibility of pneumonia was raised due to elevated WBC and so the patient was placed on Flagyl as well as ciprofloxacin. The patient significantly improved after 48 hours. Family reports patient being sedated a lot however he is sedatives were all held and patient's mental status improved. He has family physician were able to come by and discuss with the family and the patient regarding long-term care plans. Patient opted to go back home on home hospice and is agreeable to the plan. At this point retail planner was contacted as well as hospice and arrangements were made for services to be provided at home for comfort measures as well. Physical Exam Vital Signs: Temp Pulse Resp BP Pulse Ox 97.5 F 116 H 18 117/53 L 100 11/19/16 11:31 11/19/16 11:31 11/19/16 11:31 11/19/16 11:31 11/19/16 11:31 Intake & Output 11/18/16 11/19/16 11/20/16 06:59 06:59 06:59 Intake Total 307 1027 330 Output Total 2300 2400 1300 Balance -1992 -1373 -970 Weight 69.9 kg 65.9 kg General appearance: PRESENT: no acute distress, thin Head exam: PRESENT: normocephalic Eye exam: PRESENT: EOMI Mouth exam: PRESENT: moist, neck supple Neck exam: ABSENT: JVD Respiratory exam: PRESENT: clear to auscultation sheila - anteriorly. ABSENT: rhonchi, wheezes Cardiovascular exam: PRESENT: RRR. ABSENT: gallop GI/Abdominal exam: PRESENT: diminished bowel sounds, soft. ABSENT: distended, tenderness Extremities exam: PRESENT: other - trace LE edema Neurological exam: PRESENT: alert, awake Psychiatric exam: ABSENT: agitated Focused psych exam: ABSENT: restlessness Skin exam: PRESENT: dry, warm. ABSENT: cyanosis Results Laboratory Results: 11/17/16 05:19 11/19/16 05:35 11/19/16 05:35 Sodium 138.8 Potassium 3.8 Chloride 99 Carbon Dioxide 33 H Anion Gap 7 BUN 16 Creatinine 1.39 H Est GFR ( Amer) 59 L Est GFR (Non-Af Amer) 48 L Glucose 100 Calcium 8.2 L 11/16/16 11/16/16 11/16/16 10:24 10:24 15:55 Creatine Kinase 42 L Troponin I 0.693 0.538 11/16/16 11/16/16 11/16/16 15:55 22:44 22:44 Creatine Kinase 35 L 34 L Troponin I 0.379 11/19/16 05:35 Creatine Kinase Troponin I 0.149 Impressions: Chest X-Ray 11/19/16 06:00 IMPRESSION: Decrease in pulmonary vascular congestion and pulmonary edema. Small bilateral pleural effusions are present, similar compared to 11/17/2016 Qualifiers PATEINT BEING DISCHARGED WITH ANY OF THE FOLLOWING DIAGNOSIS?: Heart Failure HF Pt being discharged on ACEI for LVEF less than 40%?: Yes Reason(s) for not prescribing ACEI:: Comfort Measure, Hospice Care HF Pt being discharged on ARBS for LVEF less than 40%?: No Reason(s) for not prescribing ARBS:: Not indicated, Comfort Measure, Hospice Care HF Pt with Afib discharged with Warfarin?: No Reason(s) for not prescribing Warfarin:: Comfort Measure, Hospice Care HF Pt discharged on evidence-based Beta Damir:: No Reason(s) for not prescribing evidence-based Beta Damir:: Comfort Measure, Hospice Care Plan Discharge Plan: Discharge home on home hospice for comfort measures. Patient will be followed by primary care physician in 1 week. Time Spent: Less than 30 Minutes
[2016-11-19] MEDS ORDERED: FUROSEMIDE 40 MG TABLET PO SCH (18:00)
== END 2016-11-19 17:27 | disposition hospice, home (50) | DRG 189 ==
LOC: ER 01:23 → UNDOADMIN 07:51 → EH 07:51 → 3S 09:05 → EH 09:24 → 3S 11-17 20:45
PROC: 5A09357 Assistance with Respiratory Ventilation, Less than 24 Consecutive Hours, Continuous Positive Airway Pressure (ICD-10-PCS; principal; 2016-11-16)
DX: J96.01 Acute respiratory failure with hypoxia (principal); I50.23 Acute on chronic systolic (congestive) heart failure; J18.9 Pneumonia, unspecified organism; I13.0 Hypertensive heart and chronic kidney disease with heart failure and stage 1 through stage 4 chronic kidney disease, or unspecified chronic kidney disease; J44.0 Chronic obstructive pulmonary disease with (acute) lower respiratory infection; N18.3 Chronic kidney disease, stage 3 (moderate); D63.1 Anemia in chronic kidney disease; E87.6 Hypokalemia; I25.5 Ischemic cardiomyopathy; G25.81 Restless legs syndrome; I25.10 Atherosclerotic heart disease of native coronary artery without angina pectoris; N40.0 Benign prostatic hyperplasia without lower urinary tract symptoms; Z66 Do not resuscitate; E78.5 Hyperlipidemia, unspecified; Z79.82 Long term (current) use of aspirin; Z79.899 Other long term (current) drug therapy; Z95.810 Presence of automatic (implantable) cardiac defibrillator; Z95.5 Presence of coronary angioplasty implant and graft; Z87.891 Personal history of nicotine dependence; I25.2 Old myocardial infarction; S51.011A Laceration without foreign body of right elbow, initial encounter; S41.111A Laceration without foreign body of right upper arm, initial encounter; Y92.129 Unspecified place in nursing home as the place of occurrence of the external cause
CPT/HCPCS: 36415; 70450; 71010; 72170; 80048; 80053; 82550; 82553; 82803; 83735; 83880; 84100; 84443; 84481; 84484; 85025; 87040; 93005; 93010; 93306; 94660; 96365; 96367; 96375; 96376; 99285; G8978-GP; G8979-GP; G8996-GN; G8997-GN; G8998-GN; J1650; J1940; J2543; J3010; J3370; J3480; J3490